=== PATIENT | female | born 1935 | race Caucasian/White ===

== ENCOUNTER → 2019-05-12 11:12 | Outpatient (CLI) | payer MEDICARE, OTHER, SELFPAY ==
--- NOTE | 2019-05-12 | DI.RAD.S_ITS ---
PROCEDURE: XR LUMBAR SPINE 2-3V INDICATIONS: MIDLINE LOW BACK PAIN TECHNIQUE: 3 views of the lumbar spine were acquired. COMPARISON: None. FINDINGS: Bones: 5 [id number] vertebrae are present. There is normal bony alignment. No vertebral body compression fractures. No suspicious bony lesions. Mild multilevel degenerative changes of the lumbar spine as evidenced by facet arthropathy. There is possible osseous narrowing of the L5-S1 neuroforamina. Soft tissues: There are bilateral abdominal calcifications concerning for nephrolithiasis versus ingested high density material. The calcifications in the right upper quadrant of the abdomen appear to demonstrate branching suggestive of renal collecting system calcifications. There are bilateral vascular calcifications are nonobstructive bowel gas pattern. IMPRESSION: 1. Mild multilevel degenerative changes of the lumbar spine. 2. Bilateral right greater than left abdominal calcifications concerning for nephrolithiasis versus ingested intraluminal high density bowel contents. Dictated by: Romeo Alexander M.D. on 05/12/2019 at 15:16 Approved by: Romeo Alexander M.D. on 05/12/2019 at 15:18
[2019-05-12 12:26] LABS: Add Manual Diff / Slide Review NO; Basophils Absolute Auto 0 /uL (0-100); Basophils Percent Auto 0.4 % (0-2); Eosinophils Absolute Auto 300 /uL (0-450); Eosinophils Percent Auto 4.9 % (2-4); Hematocrit 43.2 % (36-46); Hemoglobin 14.5 g/dL (12.0-16.0); Lymphocytes Absolute Auto 1800 /uL (1100-4500); Lymphocytes Percent Auto 26.5 % (25-40); Mean Corpuscular HGB Conc 33.6 % (30-36); Mean Corpuscular Hemoglobin 30.5 PG (26-34); Mean Corpuscular Volume 90.7 fL (80-100); Monocytes Absolute Auto 500 /uL (0-900); Monocytes Percent Auto 7.6 % (3-14); Neutrophils Absolute Auto 4200 /uL (1500-7000); Neutrophils Percent Auto 60.6 % (50-75); Platelet Count 334 X10^3/uL (150-400); Red Blood Cell Count 4.77 X10^6/uL (4.0-5.2); Red Cell Distribution Width 13.3 % (11.6-14.8); White Blood Cell Count 6.9 X10^3/uL (4.5-11.0)
[2019-05-12 12:58] LABS: Alanine Aminotransferase 19 IU/L (9-52); Albumin 4.4 g/dL (3.5-5.0); Albumin Globulin Ratio 1.4 (1.0-2.8); Alkaline Phosphatase 71 U/L (38-126); Aspartate Aminotransferase 24 IU/L (14-36); Bilirubin Total 0.9 mg/dL (0.2-1.3); Blood Urea Nitrogen 24 mg/dL (7-17); Calcium 10.9 mg/dL (8.4-10.2); Carbon Dioxide 25 mmol/L (22-32); Chloride 106 mmol/L (98-107); Cholesterol 213 mg/dL (140-199); Estimated Glomerular Filt Rate 42.9 mL/min (>60); Globulin 3.1 g/dL (1.7-4.1); Glucose 103 mg/dL (80-110); HDL Cholesterol 56 mg/dL (40-60); HEMOLYSIS < 15 (0-50); LDL Cholesterol Calculated 126 mg/dL (<100); Potassium 4.4 mmol/L (3.4-5.1); Sodium 143 mmol/L (137-145); Total Protein 7.5 g/dL (6.3-8.2); Triglycerides 156 mg/dL (35-150)
[2019-05-12 13:26] LABS: Thyroid Stimulating Hormone 1.85 uIU/mL (0.47-4.68)
== END ==
PROVIDERS: PCP Orthopaedic Surgery; Visit Provider Family Medicine
DX: M54.5 Low back pain (principal); G89.29 Other chronic pain; H54.62 Unqualified visual loss, left eye, normal vision right eye; R53.83 Other fatigue
CPT/HCPCS: 36415; 72100; 80053; 80061; 84443; 85025

== ENCOUNTER → 2019-05-19 10:37 | Outpatient (CLI) | payer MEDICARE, OTHER, SELFPAY ==
--- NOTE | 2019-05-19 | DI.MRI.S_ITS ---
PROCEDURE: MR STROKE INDICATIONS: Unqualified visual loss, left eye, normal vision TECHNIQUE: Brain: Noncontrast axial T1 spin echo, axial T2 fast spin echo, sagittal and axial FLAIR, coronal T2 fast spin echo, axial gradient echo, axial diffusion and ADC through the brain. MR angiogram: Noncontrast axial 3D [id number] MR angiogram, with maximum intensity projection reformats of the internal carotid arteries and posterior circulation then performed. COMPARISON: None. FINDINGS: Image quality: Excellent. BRAIN: CSF Spaces: Basal cisterns are patent. No extra-axial fluid collections. Ventricles are normal in size and shape. Brain: No midline shift. No intracranial bleeds or mass effects. The brainstem appears normal. Eastman/white matter interface appears normal. Diffusion-weighted images demonstrate no acute ischemic insult. No chronic ischemic insults suggestive of encephalomalacia from prior stroke. There is mild to moderate microvascular atherosclerotic change in the deep white matter each hemisphere. Normal intravascular flow voids are present. Skull and face: Calvarium has normal marrow signal. Orbits appear normal. Sinuses: Sinuses and mastoids are clear. BRAIN MR ANGIOGRAM: Anterior circulation: Intracranial internal carotid arteries demonstrate normal size and intraluminal flow signal. The flow within the paired anterior cerebral arteries is normal and symmetric. The flow within the middle cerebral arteries is normal and symmetric. The anterior communicating artery is seen. No stenoses, occlusions, or aneurysms. Posterior circulation: The visualized vertebral arteries demonstrate normal caliber, and join to form a normal appearing basilar artery. The flow within the posterior cerebral arteries is normal and symmetric. Note is made of normal appearing posterior cerebral arteries. No stenoses, occlusions, or aneurysms. 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 There is no evidence for acute or chronic prior stroke, and over the orbits bilaterally no abnormality is seen. Source of current symptoms is not found. Dictated by: David Nuñez M.D. on 05/19/2019 at 13:21 Approved by: David Nuñez M.D. on 05/19/2019 at 13:44
== END ==
PROVIDERS: PCP Family Medicine; Visit Provider Family Medicine
DX: H54.62 Unqualified visual loss, left eye, normal vision right eye (principal)
CPT/HCPCS: 70548; 70553

== ENCOUNTER 2020-02-13 18:19 | Inpatient (IN) | payer MEDICARE, OTHER, SELFPAY ==
[2020-02-13] VITALS (7 sets, daily range): BP systolic 118–142; BP diastolic 66–76; PULSE 70–94; RESP 12–21; TEMP 36.4–36.8; O2SAT 97–99; BMI 23.6
--- NOTE | 2020-02-13 18:29 | ED_ITS ---
HPI - GI Bleed General Chief complaint: GI Bleed Stated complaint: blood in her stool Time Seen by Provider: 02/13/20 18:20 Source: patient Mode of arrival: Ambulatory Limitations: no limitations History of Present Illness HPI Narrative: 84F nonsmoker with noncontributory medical history presents with her and at the request of her primary care provider after having for large bloody bowel movements over the course of the day. She has become dizzy and fatigued in requires assistance while ambulating, this is not her baseline. She denies any history of GI bleed, takes no anticoagulants and has never had colonoscopy. She denies any chest pain or shortness of breath. She denies any abdominal pain. She denies any significant dietary change. She states that the bowel movements are almost exclusively bright red blood and denies any vomiting of blood or dark and tarry stool at any time. She denies any alcohol history or trouble with her liver or other bleeding problems. MD complaint: gross hematochezia Onset (ago): hour(s) Severity: moderate Relieving factors: none Exacerbating factors: none Associated symptoms: loss of appetite and shortness of breath Treatments Prior to Arrival: none Related Data Home Medications Medication Instructions Recorded Confirmed latanoprost 0.005 % eye drops EYE-BOTH QPM ml 06/24/19 06/24/19 aspirin [Aspir-81] 81 mg PO DAILY 02/13/20 02/13/20 Allergies Allergy/AdvReac Type Severity Reaction Status Date / Time No Known Drug Allergies Allergy Unverified 06/24/19 10:47 Review of Systems Constitutional Constitutional: Denies chills, Denies fatigue, Denies fever(s), Denies frequent falls, Denies lethargy and Denies weakness Eyes Eyes: Denies change in vision, Denies eye discharge, Denies irritation and Denies loss of vision ENT Ears, Nose, Mouth, and Throat: Denies change in voice, Denies dizziness, Denies neck pain, Denies sore throat and Denies throat swelling Cardiovascular Cardiovascular: Denies chest pain, Denies irregular heart rhythm, Denies lightheadedness, Denies palpitations, Denies dyspnea, Denies dyspnea on exertion and Denies orthopnea Respiratory Respiratory: Denies cough, Denies dyspnea, Denies dyspnea on exertion and Denies wheezing Gastrointestinal Gastrointestinal: Denies abdominal pain, Reports hematochezia, Denies change in bowel habits, Denies diarrhea, Denies nausea and Denies vomiting Genitourinary Genitourinary: Denies hematuria, Denies flank pain, Denies urinary incontinence and Denies urinary urgency Musculoskeletal Musculoskeletal: Denies back pain, Denies muscle weakness, Denies neck pain, Denies numbness and Denies tingling Integumentary/Breasts Skin/Breast: Denies pruritus, Denies erythema, Denies rash and Denies wounds Neurologic Neurologic: Denies behavioral changes, Denies confusion, Denies dizziness, Denies frequent falls, Denies loss of vision, Denies numbness, Denies tingling and Denies weakness Psychiatric Psychiatric: Denies anxiety, Denies behavioral changes, Denies confusion, Denies depression, Denies homicidal ideation and Denies suicidal ideation Endocrine Endocrine: Denies fatigue, Denies flushing and Denies palpitations Hematologic/Lymphatic Hematologic/Lymphatic: Denies easy bruising Allergic/Immunologic Allergic/Immunologic: Denies urticaria, Denies throat swelling and Denies wheezing Patient History Social History Smoking Status: Never smoker Smoking Status: Never smoker Exam Narrative Exam Narrative: GENERAL: [84] year old patient appears stated age. Well- nourished, well-developed patient, in mild distress. HEAD: Atraumatic. Normocephalic. EYES: Pale conjunctiva Pupils equal round and reactive. Extraocular motions intact. No scleral icterus. No injection or drainage. ENT: Nose without bleeding, purulent drainage. Throat without erythema, tonsillar hypertrophy or exudate. Airway patent. NECK: Trachea midline. Non tender CARDIOVASCULAR: Regular rate and rhythm without murmurs, gallops, or rubs. RESPIRATORY: Clear to auscultation. Breath sounds equal bilaterally. No wheezes, rales, or rhonchi. GASTROINTESTINAL: Abdomen soft, non-tender, nondistended. EXTREMITIES: No edema or joint tenderness. BACK: Nontender without deformity or crepitance. No flank tenderness. NEURO: AOx3. SKIN: No rash or erythema of visible areas Initial Vital Signs Initial Vital Signs: Vital Signs Temperature 98.0 F 02/13/20 18:20 Pulse Rate 91 H 02/13/20 18:20 Respiratory Rate 14 02/13/20 18:20 Blood Pressure 142/76 H 02/13/20 18:20 Pulse Oximetry 98 02/13/20 18:20 Course Orders Ordered: ED Orders 02/13/20 18:35 Complete Blood Count AUTO DIFF Stat Comprehensive Metabolic Panel Stat Lactate (Lactic Acid) Stat Partial Thromboplastin Time Stat Prothrombin Time INR Stat Type and Screen Stat Sodium Chloride (Normal Saline 0.9%) 1,000 mls @ 125 mls/hr IV CONT PERI Last Admin: 02/13/20 20:15 Dose: Not Given Documented by: FLOR Discontinued Medications Pantoprazole Sodium (Protonix) 40 mg IV NOW ONE Stop: 02/13/20 19:28 Last Admin: 02/13/20 20:21 Dose: 40 mg Documented by: DANIELLE Consultations Consultation #1: case discussed with Jairo Vaz) who supports admission to medicine, and will be happy to consult for possible colonoscopy Consultation #2: hospitalist happy to accept Vital Signs Vital signs: Vital Signs - 8 hr 02/13/20 18:20 02/13/20 18:43 02/13/20 19:00 Temperature 98.0 F Pulse Rate 91 H 90 87 Respiratory Rate 14 18 17 Blood Pressure 142/76 H Blood Pressure [Left Arm] 131/75 131/75 Pulse Oximetry 98 99 98 02/13/20 19:30 Temperature Pulse Rate 94 H Respiratory Rate 21 Blood Pressure Blood Pressure [Left Arm] 118/70 Pulse Oximetry 98 MDM - GI Bleed Lab Data Result diagrams: 02/13/20 18:35 02/13/20 18:35 Labs: Lab Results 02/13/20 02/13/20 02/13/20 Range/Units 18:35 18:35 18:35 WBC 11.0 (4.5-11.0) X10^3/uL RBC 4.36 (4.0-5.2) X10^6/uL Hgb 13.3 (12.0-16.0) g/dL Hct 39.7 (36-46) % MCV 91.0 (80-100) fL MCH 30.5 (26-34) PG MCHC 33.5 (30-36) % RDW 13.2 (11.6-14.8) % Plt Count 452 H (150-400) X10^3/uL Neut % (Auto) 81.6 H (50-75) % Lymph % (Auto) 10.9 L (25-40) % [place] % (Auto) 5.7 (3-14) % Eos % (Auto) 1.1 L (2-4) % Baso % (Auto) 0.7 (0-2) % Neut # (Auto) 9000 H (2585-6102) /uL Lymph # (Auto) 1200 (8802-7701) /uL [place] # (Auto) 600 (0-900) /uL Eos # (Auto) 100 (0-450) /uL Baso # (Auto) 100 (0-100) /uL PT 12.6 (10.1-12.7) SECONDS INR 1.1 (0.9-1.3) APTT 31 (26.4-36.2) SECONDS Sodium 137 (137-145) mmol/L Potassium 3.9 (3.4-5.1) mmol/L Chloride 104 (98-107) mmol/L Carbon Dioxide 20 L (22-32) mmol/L BUN 20 H (7-17) mg/dL Creatinine 1.37 H (0.52-1.04) mg/dL Estimated GFR 36.7 L (>60) mL/min BUN/Creatinine Ratio 14.6 (6-22) Glucose 133 H (80-110) mg/dL Lactate (0.7-2.1) mmol/L Calcium 10.6 H (8.4-10.2) mg/dL Total Bilirubin 0.8 (0.2-1.3) mg/dL AST 32 (14-36) IU/L ALT 15 (<35) IU/L Alkaline Phosphatase 89 (38-126) U/L Total Protein 7.8 (6.3-8.2) g/dL Albumin 4.3 (3.5-5.0) g/dL Globulin 3.5 (1.7-4.1) g/dL Albumin/Globulin Ratio 1.2 (1.0-2.8) Blood Type Antibody Screen 02/13/20 02/13/20 Range/Units 18:35 18:35 WBC (4.5-11.0) X10^3/uL RBC (4.0-5.2) X10^6/uL Hgb (12.0-16.0) g/dL Hct (36-46) % MCV (80-100) fL MCH (26-34) PG MCHC (30-36) % RDW (11.6-14.8) % Plt Count (150-400) X10^3/uL Neut % (Auto) (50-75) % Lymph % (Auto) (25-40) % [place] % (Auto) (3-14) % Eos % (Auto) (2-4) % Baso % (Auto) (0-2) % Neut # (Auto) (6124-3548) /uL Lymph # (Auto) (2780-3142) /uL [place] # (Auto) (0-900) /uL Eos # (Auto) (0-450) /uL Baso # (Auto) (0-100) /uL PT (10.1-12.7) SECONDS INR (0.9-1.3) APTT (26.4-36.2) SECONDS Sodium (137-145) mmol/L Potassium (3.4-5.1) mmol/L Chloride (98-107) mmol/L Carbon Dioxide (22-32) mmol/L BUN (7-17) mg/dL Creatinine (0.52-1.04) mg/dL Estimated GFR (>60) mL/min BUN/Creatinine Ratio (6-22) Glucose (80-110) mg/dL Lactate 2.0 (0.7-2.1) mmol/L Calcium (8.4-10.2) mg/dL Total Bilirubin (0.2-1.3) mg/dL AST (14-36) IU/L ALT (<35) IU/L Alkaline Phosphatase (38-126) U/L Total Protein (6.3-8.2) g/dL Albumin (3.5-5.0) g/dL Globulin (1.7-4.1) g/dL Albumin/Globulin Ratio (1.0-2.8) Blood Type O Positive Antibody Screen Negative Discharge Plan Departure Patient Disposition: Admitted as Observation Clinical Impression: Lower gastrointestinal hemorrhage Admit Date/Time: 02/13/20 20:12 Admit Provider: Jordyn Matson
[2020-02-13 18:56] LABS: Add Manual Diff / Slide Review NO; Basophils Absolute Auto 100 /uL (0-100); Basophils Percent Auto 0.7 % (0-2); Eosinophils Absolute Auto 100 /uL (0-450); Eosinophils Percent Auto 1.1 % (2-4); Hematocrit 39.7 % (36-46); Hemoglobin 13.3 g/dL (12.0-16.0); Lymphocytes Absolute Auto 1200 /uL (1100-4500); Lymphocytes Percent Auto 10.9 % (25-40); Mean Corpuscular HGB Conc 33.5 % (30-36); Mean Corpuscular Hemoglobin 30.5 PG (26-34); Monocytes Absolute Auto 600 /uL (0-900); Monocytes Percent Auto 5.7 % (3-14); Neutrophils Absolute Auto 9000 /uL (1500-7000); Neutrophils Percent Auto 81.6 % (50-75); Platelet Count 452 X10^3/uL (150-400); Red Blood Cell Count 4.36 X10^6/uL (4.0-5.2); Red Cell Distribution Width 13.2 % (11.6-14.8)
[2020-02-13 19:12] LABS: Alanine Aminotransferase 15 IU/L (<35); Albumin 4.3 g/dL (3.5-5.0); Albumin Globulin Ratio 1.2 (1.0-2.8); Alkaline Phosphatase 89 U/L (38-126); Aspartate Aminotransferase 32 IU/L (14-36); BUN Creatinine Ratio 14.6 (6-22); Bilirubin Total 0.8 mg/dL (0.2-1.3); Blood Urea Nitrogen 20 mg/dL (7-17); Calcium 10.6 mg/dL (8.4-10.2); Carbon Dioxide 20 mmol/L (22-32); Chloride 104 mmol/L (98-107); Estimated Glomerular Filt Rate 36.7 mL/min (>60); Globulin 3.5 g/dL (1.7-4.1); Glucose 133 mg/dL (80-110); HEMOLYSIS 24 (0-50); Potassium 3.9 mmol/L (3.4-5.1); Sodium 137 mmol/L (137-145); Total Protein 7.8 g/dL (6.3-8.2)
[2020-02-13 19:15] LABS: INR 1.1 (0.9-1.3); Prothrombin Time 12.6 SECONDS (10.1-12.7)
[2020-02-13 19:18] LABS: PTT Partial Thromboplastin Tim 31 SECONDS (26.4-36.2)
[2020-02-13] MEDS: PANTOPRAZOLE 40 MG VIAL IV (20:21)
--- NOTE | 2020-02-13 21:43 | PC.NURSE ---
Pt to room 221 from E.R. via stretcher by this commercial underwriter. Pt is able to ambulate from stretcher to bed without c/o dizziness. Denies h/o falls. Admits to lower abdominal cramping 2/10. Given folded warm blankets x 2 to hold to abdomen. Spouse staying locally in hotel. Pt oriented to call light. HECTOR Matson in to see patient. Verbal order obtained for clear liquids. Pt given water as per request. 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
[2020-02-13] MEDS: SODIUM CHLORIDE 0.9% 1,000 ML 100 ML IV (22:18)
--- NOTE | 2020-02-13 22:59 | PM.HP.1 ---
History of Present Illness History of Present Illness Date Patient Seen: 02/13/20 Time Patient Seen: 22:59 Date of Onset of Symptoms: 02/13/20 Chief complaint: blood in her stool Narrative: This is an 84-year-old woman who denies any significant medical or surgical history. Today she began having blood in her stool, without any abdominal pain. She had multiple episodes of bright red blood and clots in her stool. She has become dizzy and fatigued in requires assistance while ambulating, which is not her baseline. She denies any history of GI bleed, takes no anticoagulants and has never had a colonoscopy. She denies any family history of colorectal disorders, colon cancers, or colon polyps. She denies any chest pain or shortness of breath. She denies any abdominal pain. She denies any significant dietary change. She states that the bowel movements are almost exclusively bright red blood and denies any vomiting of blood or dark and tarry stool at any time. She has not had any more bloody bowel movements since coming in the ER. She denies smoking, and denies significant alcohol use. Review of Systems Constitutional: Denies chills, Denies fatigue, Denies fever(s), Denies frequent falls, Denies lethargy and Denies weakness Eyes: Denies change in vision, Denies eye discharge, Denies irritation and Denies loss of vision Ears, Nose, Mouth, and Throat: Denies change in voice, Denies dizziness, Denies neck pain, Denies sore throat and Denies throat swelling Cardiovascular: Denies chest pain, Denies irregular heart rhythm, Denies lightheadedness, Denies palpitations, Denies dyspnea, Denies dyspnea on exertion and Denies orthopnea Respiratory: Denies cough, Denies dyspnea, Denies dyspnea on exertion and Denies wheezing Gastrointestinal: Denies abdominal pain, Reports hematochezia, Denies change in bowel habits, Denies diarrhea, Denies nausea and Denies vomiting Genitourinary: Denies hematuria, Denies flank pain, Denies urinary incontinence and Denies urinary urgency Musculoskeletal: Denies back pain, Denies muscle weakness, Denies neck pain, Denies numbness and Denies tingling Skin/Breast: Denies pruritus, Denies erythema, Denies rash and Denies wounds Neurologic: Denies behavioral changes, Denies confusion, Denies dizziness, Denies frequent falls, Denies loss of vision, Denies numbness, Denies tingling and Denies weakness Psychiatric: Denies anxiety, Denies behavioral changes, Denies confusion, Denies depression, Denies homicidal ideation and Denies suicidal ideation Endocrine: Denies fatigue, Denies flushing and Denies palpitations Hematologic/Lymphatic: Denies easy bruising Allergic/Immunologic: Denies urticaria, Denies throat swelling and Denies wheezing PE: GENERAL: Well groomed and cooperative. Appears stated age. Answers questions promptly and appropriately. Vital signs noted. HENT: Normocephalic, atraumatic. Hearing intact. Oral mucosa is pink and moist. EYES: Conjunctiva pink, sclera white, no periorbital swelling. CARDIOVASCULAR: Regular rate. No pedal edema. RESPIRATORY: Non-tachypneic, breathing comfortably on room air. GASTROINTESTINAL: Abdomen soft and non-distended, nontender Perianal: No stool staining, no gross blood, small soft external hemorrhoid remnants REGLA: Deferred per patient preference GENITALURINARY: No flank tenderness. MUSCULOSKELETAL: Equal tone and mass bilaterally. SKIN: Warm, dry, soft, appropriate color for ethnicity. No other lesions, rashes, or wounds. NEURO: Alert and Oriented X 3. No gross sensory deficits, or cognitive issues. PSYCH: Appropriate affect and mood. Patient History Family & Social History Social History: household members spouse Prior Living Arrangements House Safety & Behavioral: Feels Safe in Current Yes Environment Been Physically Hurt or No Threatened By a Person Suicidal Ideation Description None Suicide Plan Description No Plan Tobacco & Substance use: Tobacco type cigarettes Smoking Status Former smoker alcohol intake current alcohol intake frequency 0-2 drinks per day Substance Use Type does not use Meds Home Medications and Allergies Home Medications Medication Instructions Recorded Confirmed Type latanoprost 0.005 % eye drops 1 drp EYE-BOTH BID ml 06/24/19 02/13/20 History aspirin [Aspir-81] 81 mg PO DAILY 02/13/20 02/13/20 History Allergies Allergy/AdvReac Type Severity Reaction Status Date / Time No Known Drug Allergies Allergy Unverified 06/24/19 10:47 Exam Vital Signs (past 8 hours): - 02/13/20 18:20 02/13/20 18:43 02/13/20 19:00 Temperature 98.0 F Pulse Rate 91 H 90 87 Respiratory Rate 14 18 17 Blood Pressure 142/76 H Blood Pressure [Left Arm] 131/75 131/75 Pulse Oximetry 98 99 98 02/13/20 19:30 02/13/20 21:10 Temperature 97.5 F L Pulse Rate 94 H 70 Respiratory Rate 21 17 Blood Pressure 120/66 Blood Pressure [Left Arm] 118/70 Pulse Oximetry 98 98 Oxygen Delivery Method Room Air Oxygen Flow Rate 0 Objective Labs Result Diagrams: 02/13/20 18:35 02/13/20 18:35 Labs: Laboratory Results - last 24 hr 02/13/20 02/13/20 02/13/20 18:35 18:35 18:35 WBC 11.0 RBC 4.36 Hgb 13.3 Hct 39.7 MCV 91.0 MCH 30.5 MCHC 33.5 RDW 13.2 Plt Count 452 H Neut % (Auto) 81.6 H Lymph % (Auto) 10.9 L [place] % (Auto) 5.7 Eos % (Auto) 1.1 L Baso % (Auto) 0.7 Neut # (Auto) 9000 H Lymph # (Auto) 1200 [place] # (Auto) 600 Eos # (Auto) 100 Baso # (Auto) 100 PT 12.6 INR 1.1 APTT 31 Sodium 137 Potassium 3.9 Chloride 104 Carbon Dioxide 20 L BUN 20 H Creatinine 1.37 H Estimated GFR 36.7 L BUN/Creatinine Ratio 14.6 Glucose 133 H Lactate Calcium 10.6 H Total Bilirubin 0.8 AST 32 ALT 15 Alkaline Phosphatase 89 Total Protein 7.8 Albumin 4.3 Globulin 3.5 Albumin/Globulin Ratio 1.2 Blood Type Antibody Screen 02/13/20 02/13/20 18:35 18:35 WBC RBC Hgb Hct MCV MCH MCHC RDW Plt Count Neut % (Auto) Lymph % (Auto) [place] % (Auto) Eos % (Auto) Baso % (Auto) Neut # (Auto) Lymph # (Auto) [place] # (Auto) Eos # (Auto) Baso # (Auto) PT INR APTT Sodium Potassium Chloride Carbon Dioxide BUN Creatinine Estimated GFR BUN/Creatinine Ratio Glucose Lactate 2.0 Calcium Total Bilirubin AST ALT Alkaline Phosphatase Total Protein Albumin Globulin Albumin/Globulin Ratio Blood Type O Positive Antibody Screen Negative Assessment & Plan Assessment and plan (1) Lower gastrointestinal hemorrhage: Current visit: Yes Status: Acute Assessment & Plan narrative: This is an 84-year-old woman with new onset hematochezia. Her hemoglobin is normal, but she is currently getting IV fluids, it may drop. She has not put out any more bloody stool since she got to the hospital. She has been admitted and will stay overnight. She has told me that she does not want have a colonoscopy done but she wants to go home on Sunday, which is tomorrow. A suggested that we see how she do overnight, check some labs in the morning, and that if she does decide to go home, that she plan on a relatively soon follow-up in order to schedule colonoscopy for her. I have expressed to her the concerned that this bleeding may be evidence of a colon cancer, and that should be ruled out. 25 minutes were spent face to face with the patient. More than 50% of the time was spent in counseling and co-ordination of care regarding risk and benefit of screening colonoscopy, possible colon cancer, possible risks of avoiding colonoscopy screening, recommendation have colonoscopy either on this admission or in the near future. Plan: Okay for p.o. clears this evening, we would check labs in the morning, and if hemoglobin is dropping in patient is willing would consider prepping for colonoscopy. If her hemoglobin is stable and she is not having any more blood in the stool, then a plan for close outpatient follow-up with a colonoscopy in the near future in strict return precautions may be reasonable. If she stays and is planning on a colonoscopy, she will need COVID-19 testing before colonoscopy. COVID-19 COVID-19 status: Not tested Time Spent With Patient Time with patient: 25 - 35 minutes Quality VTE Deep Vein Thrombosis/Pulmonary Embolism Present on Admission: No
--- NOTE | 2020-02-13 23:08 | PM.HP.1 ---
History of Present Illness History of Present Illness Date Patient Seen: 02/13/20 Time Patient Seen: 21:00 Chief complaint: blood in her stool Narrative: Miranda Siddiqui is an 84-year-old female who woke up this morning and had a normal bowel movement. Then at 10:30 a.m. after having breakfast she had another bowel movement that she states was soft and noticed she had blood in her stool. She has never had a history of hemorrhoids. Nor has she had a colonoscopy. She has had some mild cramping, denies shortness of breath, fatigue, chest pain, abdominal pain, dysuria, diarrhea constipation. The patient has a minimal medical history only taking aspirin 81 mg and eyedrops. Patient would like to not have to undergo a colonoscopy as she plans to meet her son who is lying in and visiting her over mother's day weekend. Patient History Surgical History Hx of tonsillectomy (Acute) Family & Social History Family History Mother FHx: bladder cancer Father Heart disease Social History: household members spouse Prior Living Arrangements House Safety & Behavioral: Feels Safe in Current Yes Environment Been Physically Hurt or No Threatened By a Person Suicidal Ideation Description None Suicide Plan Description No Plan Tobacco & Substance use: Tobacco type denies smoking today Smoking Status Former smoker alcohol intake current alcohol intake frequency 1/2 shot of hard liquor nightly Substance Use Type does not use Meds Home Medications and Allergies Home Medications Medication Instructions Recorded Confirmed Type latanoprost 0.005 % eye drops 1 drp EYE-BOTH BID ml 06/24/19 02/13/20 History aspirin [Aspir-81] 81 mg PO DAILY 02/13/20 02/13/20 History Allergies Allergy/AdvReac Type Severity Reaction Status Date / Time No Known Drug Allergies Allergy Unverified 06/24/19 10:47 Review of Systems Review of Systems ROS: Yes All systems reviewed with the patient and are negative except as otherwise documented Exam Vital Signs (past 8 hours): - 02/13/20 18:20 02/13/20 18:43 02/13/20 19:00 Temperature 98.0 F Pulse Rate 91 H 90 87 Respiratory Rate 14 18 17 Blood Pressure 142/76 H Blood Pressure [Left Arm] 131/75 131/75 Pulse Oximetry 98 99 98 02/13/20 19:30 02/13/20 21:10 Temperature 97.5 F L Pulse Rate 94 H 70 Respiratory Rate 21 17 Blood Pressure 120/66 Blood Pressure [Left Arm] 118/70 Pulse Oximetry 98 98 Oxygen Delivery Method Room Air Oxygen Flow Rate 0 Narrative Exam Narrative: Gen: Alert, oriented, well-developed 84 y.o. female, NAD HEENT: normocephalic, atraumatic, conjunctiva clear, sclera non-icteric, oral mucosa pink and moist Neck: supple, full ROM, no JVD, trachea is midline Resp: Lungs CTA, non-labored breathing CV: RRR, no murmur or rubs Abd: soft, non-tender, normoactive BTs Skin: Evidence of significant lifetime sun exposure, no lesions or rashes, dry and intact Neuro: Alert and oriented X 4 w/no focal deficits Extremities: moves all 4 extremities, is ambulatory, negative Eliud?s sign Psyche: normal mood and affect. Objective Labs Result Diagrams: 02/13/20 18:35 02/13/20 18:35 Labs: Laboratory Results - last 24 hr 02/13/20 02/13/20 02/13/20 18:35 18:35 18:35 WBC 11.0 RBC 4.36 Hgb 13.3 Hct 39.7 MCV 91.0 MCH 30.5 MCHC 33.5 RDW 13.2 Plt Count 452 H Neut % (Auto) 81.6 H Lymph % (Auto) 10.9 L [place] % (Auto) 5.7 Eos % (Auto) 1.1 L Baso % (Auto) 0.7 Neut # (Auto) 9000 H Lymph # (Auto) 1200 [place] # (Auto) 600 Eos # (Auto) 100 Baso # (Auto) 100 PT 12.6 INR 1.1 APTT 31 Sodium 137 Potassium 3.9 Chloride 104 Carbon Dioxide 20 L BUN 20 H Creatinine 1.37 H Estimated GFR 36.7 L BUN/Creatinine Ratio 14.6 Glucose 133 H Lactate Calcium 10.6 H Total Bilirubin 0.8 AST 32 ALT 15 Alkaline Phosphatase 89 Total Protein 7.8 Albumin 4.3 Globulin 3.5 Albumin/Globulin Ratio 1.2 Blood Type Antibody Screen 02/13/20 02/13/20 18:35 18:35 WBC RBC Hgb Hct MCV MCH MCHC RDW Plt Count Neut % (Auto) Lymph % (Auto) [place] % (Auto) Eos % (Auto) Baso % (Auto) Neut # (Auto) Lymph # (Auto) [place] # (Auto) Eos # (Auto) Baso # (Auto) PT INR APTT Sodium Potassium Chloride Carbon Dioxide BUN Creatinine Estimated GFR BUN/Creatinine Ratio Glucose Lactate 2.0 Calcium Total Bilirubin AST ALT Alkaline Phosphatase Total Protein Albumin Globulin Albumin/Globulin Ratio Blood Type O Positive Antibody Screen Negative Assessment & Plan Assessment & Plan narrative: Miranda Siddiqui is an 84-year-old female with a single episode of hematochezia. She will be observed overnight, given fluid hydration, and her labs checked in the morning. If she worsens overnight she will reconsider doing a bowel prep for a colonoscopy. Hematochezia, acute, present on admission -her aspirin been held -clear liquids -IV hydration with normal saline at 100 mL/hour -IV Protonix 40 mg in the morning. She was given a dose of this in the ED today. -type and screen -Dr. Samuels has been notified and will consult on the patient, this is appreciated -if the patient's condition overnight warrants a colonoscopy EG necessitating a blood transfusion, continued hematochezia, morning hospitalist is requested to notify surgery to arrange for a scope. Consults: Dr. Bustamante, General Surgery consult and involvement is appreciated. Patient is observation status as her stay is not likely to exceed 2 midnights. FEN: IV NS at 100 ml/hour, clears, BMP in the am. VTE prophylaxis: Bilateral SCDs Dispo: Probable discharge to home Code Status: Full code as discussed with patient Quality VTE Deep Vein Thrombosis/Pulmonary Embolism Present on Admission: No
[2020-02-14] VITALS (7 sets, daily range): BP systolic 136–143; BP diastolic 63–72; PULSE 70–76; RESP 18; TEMP 36.6–36.7; O2SAT 96–100
[2020-02-14 06:33] LABS: Add Manual Diff / Slide Review NO; Basophils Absolute Auto 100 /uL (0-100); Basophils Percent Auto 1.2 % (0-2); Eosinophils Absolute Auto 200 /uL (0-450); Eosinophils Percent Auto 2.4 % (2-4); Hematocrit 32.2 % (36-46); Hemoglobin 11.1 g/dL (12.0-16.0); Lymphocytes Absolute Auto 2100 /uL (1100-4500); Lymphocytes Percent Auto 27.1 % (25-40); Mean Corpuscular HGB Conc 34.4 % (30-36); Mean Corpuscular Hemoglobin 31.2 PG (26-34); Mean Corpuscular Volume 90.9 fL (80-100); Monocytes Absolute Auto 600 /uL (0-900); Monocytes Percent Auto 7.8 % (3-14); Neutrophils Absolute Auto 4700 /uL (1500-7000); Neutrophils Percent Auto 61.5 % (50-75); Platelet Count 314 X10^3/uL (150-400); Red Blood Cell Count 3.55 X10^6/uL (4.0-5.2); Red Cell Distribution Width 13.4 % (11.6-14.8); White Blood Cell Count 7.7 X10^3/uL (4.5-11.0)
[2020-02-14 06:45] LABS: BUN Creatinine Ratio 14.4 (6-22); Blood Urea Nitrogen 20 mg/dL (7-17); Calcium 9.8 mg/dL (8.4-10.2); Carbon Dioxide 23 mmol/L (22-32); Chloride 107 mmol/L (98-107); Estimated Glomerular Filt Rate 36.1 mL/min (>60); Glucose 95 mg/dL (80-110); HEMOLYSIS < 15 (0-50); Potassium 4.5 mmol/L (3.4-5.1); Sodium 138 mmol/L (137-145)
[2020-02-14] MEDS: SODIUM CHLORIDE 0.9% 1,000 ML 100 ML IV (08:45)
[2020-02-14] MEDS: PANTOPRAZOLE 40 MG VIAL IV (08:45)
[2020-02-14 13:14] LABS: Hematocrit 29.9 % (36-46); Hemoglobin 10.2 g/dL (12.0-16.0)
--- NOTE | 2020-02-14 14:32 | PC.NURSE ---
Shift summary: A&O X3. Taking clear liquids without N/V. Not much appetite, but she reports really disliking clear liquids. No bowel movements or rectal bleeding noted this shift. No other s/sx bleeding noted. Denies abd pain or discomfort. BT+, hypoactive. Flatus+. Reported feeling a bit lightheaded/dizzy with ambulation this morning, denied the same this afternoon. Denies SOB. H/H was repeated at noon, MD Doty aware of results. SCD's to BLE's. Able to make needs known and calls appropriately. Light and belongings within reach, bed alarm on. This telegraphic typewriter repairer gave Dr Doty patient's husbands contact info and he will work on getting in touch with to provide update on POC.
--- NOTE | 2020-02-14 15:56 | CM.IDA ---
Initial DCP Assessment Note: Patient is an 84 yo female, resident of [facility]. Patient is an inpt as of 5.9.20, presents w/blood in her stool PCP: Augustina Heck Payer: MARCUS/Yuval Met w/patient, explained SW role. Patient lives w/her spouse on [facility], both she and her are indp and active and have been living on [address] for 20 years. One adult child lives in the [place] area and another lives in [place]. Patient is hopeful she can return home for mother's day but plans to remain in the hospital for medical management, possible colonoscopy needed per surgery's notes. P: DC home expected w/family via pov, when medically cleared DCP team will follow closely in case any needs or concerns arise. JOSH Wayne Discharge Planning/Care Management CM Discharge Assessment Start: 02/14/20 15:53 Freq: Status: Active Protocol: Document 02/14/20 15:53 CHAR (Rec: 02/14/20 15:56 CHAR [id number]) Discharge Planning Assessment Assigned Manager Of Housekeeping JOSH Castro DPOA/Assigned Designee Name Alex Siddiqui, spouse Contact Information [phone], Advance Directives? No History Provided By Patient Prior Living Arrangements House Household Members spouse Type of transporation used prior to Drives own vehicle admit Independent with ADL's Yes Is patient alert and oriented? Yes Barriers to Discharge No Discharge Plan Home Transportation Arrangement Family Referrals Initiated None needed
--- NOTE | 2020-02-14 15:57 | PM.PN.1 ---
Subjective Subjective Date Patient Seen: 02/14/20 Time Patient Seen: 15:58 Interval history: Miranda Siddiqui is an 84-year-old female admitted with hematochezia. She has had no further episodes of bright red blood per rectum today. However her hemoglobin is continuing to downtrend, from 13.3 on admission to now 10.2 this afternoon. Patient is now agreeable for colonoscopy tomorrow, will touch base with the general surgeon regarding possible prep tonight. COVID-19 testing will be sent for the possibility of colonoscopy tomorrow. Exam Vital Signs (past 8 hours): - 02/14/20 08:20 02/14/20 09:05 02/14/20 09:29 Temperature 97.8 F 97.8 F Pulse Rate 70 70 Respiratory Rate 18 18 Blood Pressure 142/63 H 142/63 H Pulse Oximetry 99 100 99 02/14/20 13:00 02/14/20 15:37 Temperature 97.8 F 98.1 F Pulse Rate 76 70 Respiratory Rate 18 18 Blood Pressure 141/69 H 136/70 Pulse Oximetry 98 99 Oxygen Delivery Method Room Air Oxygen Flow Rate 0 Narrative Exam Narrative: GENERAL APPEARANCE: Well developed, well nourished, in no acute distress. SKIN: Inspection of the skin reveals no rashes, ulcerations or petechiae. HEENT: Normocephalic atraumatic, extraocular muscles are intact, oropharynx is clear and mucous membranes are moist, neck is supple without adenopathy NECK: Supple and symmetric. There was no thyroid enlargement, and no tenderness, or masses were felt. CHEST: Normal AP diameter and normal contour without any kyphoscoliosis. LUNGS: Auscultation of the lungs revealed no wheezes, rhonchi, or rales. CARDIOVASCULAR: There was a regular rate and rhythm without any murmurs, gallops, rubs. Peripheral pulses were 2+ and symmetric. ABDOMEN: Bilateral lower quadrant tenderness, mild, without guarding or rebound. No ascites. MUSCULOSKELETAL: There was no tenderness or effusions noted. Muscle strength and tone were normal. EXTREMITIES: No cyanosis, clubbing or edema. NEUROLOGIC: Alert and oriented x 3. Normal affect. Gait was normal. Strength is +5/5 in the Upper Extremities and Lower Extremities Bilaterally. Sensation to touch was normal. Objective Labs Result Diagrams: 02/14/20 13:04 02/14/20 06:00 Labs: Laboratory Results - last 24 hr 02/13/20 02/13/20 02/13/20 18:35 18:35 18:35 WBC 11.0 RBC 4.36 Hgb 13.3 Hct 39.7 MCV 91.0 MCH 30.5 MCHC 33.5 RDW 13.2 Plt Count 452 H Neut % (Auto) 81.6 H Lymph % (Auto) 10.9 L [place] % (Auto) 5.7 Eos % (Auto) 1.1 L Baso % (Auto) 0.7 Neut # (Auto) 9000 H Lymph # (Auto) 1200 [place] # (Auto) 600 Eos # (Auto) 100 Baso # (Auto) 100 PT 12.6 INR 1.1 APTT 31 Sodium 137 Potassium 3.9 Chloride 104 Carbon Dioxide 20 L BUN 20 H Creatinine 1.37 H Estimated GFR 36.7 L BUN/Creatinine Ratio 14.6 Glucose 133 H Lactate Calcium 10.6 H Magnesium Total Bilirubin 0.8 AST 32 ALT 15 Alkaline Phosphatase 89 Total Protein 7.8 Albumin 4.3 Globulin 3.5 Albumin/Globulin Ratio 1.2 Blood Type Antibody Screen 02/13/20 02/13/20 02/14/20 18:35 18:35 06:00 WBC RBC Hgb Hct MCV MCH MCHC RDW Plt Count Neut % (Auto) Lymph % (Auto) [place] % (Auto) Eos % (Auto) Baso % (Auto) Neut # (Auto) Lymph # (Auto) [place] # (Auto) Eos # (Auto) Baso # (Auto) PT INR APTT Sodium 138 Potassium 4.5 Chloride 107 Carbon Dioxide 23 BUN 20 H Creatinine 1.39 H Estimated GFR 36.1 L BUN/Creatinine Ratio 14.4 Glucose 95 Lactate 2.0 Calcium 9.8 Magnesium 2.0 Total Bilirubin AST ALT Alkaline Phosphatase Total Protein Albumin Globulin Albumin/Globulin Ratio Blood Type O Positive Antibody Screen Negative 02/14/20 02/14/20 06:00 13:04 WBC 7.7 RBC 3.55 L Hgb 11.1 L 10.2 L Hct 32.2 L 29.9 L MCV 90.9 MCH 31.2 MCHC 34.4 RDW 13.4 Plt Count 314 Neut % (Auto) 61.5 D Lymph % (Auto) 27.1 [place] % (Auto) 7.8 Eos % (Auto) 2.4 Baso % (Auto) 1.2 Neut # (Auto) 4700 Lymph # (Auto) 2100 [place] # (Auto) 600 Eos # (Auto) 200 Baso # (Auto) 100 PT INR APTT Sodium Potassium Chloride Carbon Dioxide BUN Creatinine Estimated GFR BUN/Creatinine Ratio Glucose Lactate Calcium Magnesium Total Bilirubin AST ALT Alkaline Phosphatase Total Protein Albumin Globulin Albumin/Globulin Ratio Blood Type Antibody Screen Assessment & Plan Assessment & Plan narrative: Miranda Siddiqui is an 84-year-old female admitted with hematochezia. She has had no further episodes as an inpatient, but her hemoglobin has fallen from 13.3-10.2. Given continuing decline, will likely plan for colonoscopy tomorrow. 1. Hematochezia, acute, present on admission -her aspirin been held -clear liquids for now, NPO at midnight for possible prep tomorrow, will confirm with general surgery prior to prep -resume IV hydration if NPO at midnight -patient was given IV Protonix, however given likelihood of lower GI bleeding will stop at this time. -maintain active type and screen, continue to follow hemoglobin, will repeat tonight. -Dr. Samuels was the initial consult, will follow-up with general surgery as noted above. -COVID 19 testing to be sent for possibility of colonoscopy. Consults: General surgery Patient has continued hemoglobin decline. Will plan on changing her to inpatient status today. VTE prophylaxis: Bilateral SCDs Dispo: Probable discharge to home Code Status: Full code as discussed with patient Quality VTE Deep Vein Thrombosis/Pulmonary Embolism Present on Admission: No
[2020-02-14 16:49] LABS: Alanine Aminotransferase 10 IU/L (<35); Albumin 3.1 g/dL (3.5-5.0); Albumin Globulin Ratio 1.1 (1.0-2.8); Alkaline Phosphatase 59 U/L (38-126); Aspartate Aminotransferase 75 IU/L (14-36); Bilirubin Total 0.5 mg/dL (0.2-1.3); Blood Urea Nitrogen 17 mg/dL (7-17); Calcium 9.4 mg/dL (8.4-10.2); Carbon Dioxide 22 mmol/L (22-32); Chloride 109 mmol/L (98-107); Estimated Glomerular Filt Rate 42.4 mL/min (>60); Globulin 2.8 g/dL (1.7-4.1); Glucose 99 mg/dL (80-110); HEMOLYSIS 16 (0-50); Potassium 3.3 mmol/L (3.4-5.1); Sodium 138 mmol/L (137-145); Total Protein 5.9 g/dL (6.3-8.2)
[2020-02-14 17:42] LABS: COVID19 -Nasal RAPID Negative (Negative)
[2020-02-14] MEDS: PEG3350/SOD SULF,BICARB,CL/KCL 4,000 ML SOLUTION 4000 ML PO (18:08)
[2020-02-14 19:44] LABS: Hemoglobin 10.2 g/dL (12.0-16.0)
[2020-02-14] MEDS: POTASSIUM CHLORIDE 20 MEQ TAB 40 MEQ PO (20:48)
[2020-02-14] MEDS: SODIUM CHLORIDE 0.9% FLUSH 10 ML IV (20:49)
[2020-02-15] VITALS (14 sets, daily range): BP systolic 127–150; BP diastolic 60–77; PULSE 68–82; RESP 15–18; TEMP 36.3–37.7; O2SAT 95–99
--- NOTE | 2020-02-15 | PATH_ITS ---
[facility] Accession Number: [id number] . 01 Material submitted: . PART A: hepatic flexure - POLYP HEPATIC FLEXURE PART B: colon - POLYP ASCENDING COLON PART C: colon - POLYP AT 40 CM PART D: colon - POLYP AT 20 CM - AREA INKED . 01 Clinical history: . BLOOD IN HER STOOL . 02 Diagnosis: A. Hepatic Flexure, Polyp, Biopsy: Tubular adenoma. . B. Ascending Colon, Polyp, Biopsy: Tubular adenoma. . C. Colon, Polyp At 40 CM, Biopsy: Tubular adenoma. . D. Colon, Polyp At 20 CM, Biopsy: Invasive adenocarcinoma, moderately-differentiated, with mucinous features. Arises in a background of tubulovillous adenoma. Please see comment. [facility] 02/17/2020 1247 Local . 02 Comment: D. As part of routine quality supervisor, Dr. Thomas also reviewed selected images from part D of this case and agrees with the diagnosis. Mismatch repair IHC will be performed, and the results reported as an addendum. . . 02 Electronically signed: . Pinky Romo MD, Pathologist NPI- [id number] . 01 Gross description: . Part A: POLYP HEPATIC FLEXURE: Received in formalin are 2 fragment(s) of ennis, soft tissue measuring 0.1 x 0.1 x 0.1 cm to 0.3 x 0.2 x 0.2 cm submitted entirely in 1 cassette(s) Part B: POLYP ASCENDING COLON: Received in formalin are 2 fragment(s) of ennis, soft tissue measuring 0.2 x 0.2 x 0.2 cm to 0.3 x 0.2 x 0.2 cm submitted entirely in 1 cassette(s) Part C: POLYP AT 40 CM: Received in formalin are 2 fragment(s) of ennis, soft tissue measuring 0.2 x 0.2 x 0.2 cm to 0.3 x 0.2 x 0.2 cm submitted entirely in 1 cassette(s) Part D: POLYP AT 20 CM - AREA INKED: Received in formalin are multiple fragment(s) of ennis, soft tissue measuring 0.1 x 0.1 x 0.1 cm to 0.3 x 0.2 x 0.2 cm submitted entirely in 1 cassette(s) /[facility] [place] 02/16/20202038 Local . 02 Pathologist provided ICD-10: C18.9, D12.3, D12.2, D12.6 . 02 CPT . 371799, 878327, [id number], 747076, [id number], [id number] Performed at: 01 [facility] [address] [id number] MD Cj Galvan MD Phone: [phone] Performed at: 02 [facility] [id number] [place] [id number] MD Pinky Romo MD Phone: [phone]
[2020-02-15] MEDS: SODIUM CHLORIDE 0.9% 1,000 ML 100 ML IV ×3 (01:08→12:02)
[2020-02-15 05:11] LABS: Add Manual Diff / Slide Review NO; Basophils Absolute Auto 100 /uL (0-100); Basophils Percent Auto 1.2 % (0-2); Eosinophils Absolute Auto 200 /uL (0-450); Eosinophils Percent Auto 2.4 % (2-4); Hemoglobin 10.2 g/dL (12.0-16.0); Lymphocytes Absolute Auto 1500 /uL (1100-4500); Lymphocytes Percent Auto 20.9 % (25-40); Monocytes Absolute Auto 600 /uL (0-900); Monocytes Percent Auto 8.8 % (3-14); Neutrophils Absolute Auto 4800 /uL (1500-7000); Neutrophils Percent Auto 66.7 % (50-75); Platelet Count 270 X10^3/uL (150-400); Red Blood Cell Count 3.29 X10^6/uL (4.0-5.2); Red Cell Distribution Width 12.9 % (11.6-14.8); White Blood Cell Count 7.3 X10^3/uL (4.5-11.0)
--- NOTE | 2020-02-15 05:26 | PC.NURSE ---
Reminded patient to drink more of her bowel prep. She stated I am trying.
[2020-02-15] MEDS: FLEETS ENEMA 1 EACH PR ×2 (09:05→10:30)
--- NOTE | 2020-02-15 09:27 | PM.PREOP ---
Pre-operative Note COVID-19 COVID-19 status: Negative Result date/Date tested (Pos, Neg/Pending): 02/14/20 Interval Note History & Physical reviewed/Exam performed by Physician: Yes Changes to H&P: Yes H&P completed within 30 days and has changed as indicated here:: Bleeding has stopped. I have discussed the procedure and the rationale with the patient including risks of bleeding, perforation which would necessitate a major operation, failure to find remove all lesions and the potential to tattoo. They appeared to understand and wished to proceed. ASA Class (for procedural sedation): I
--- NOTE | 2020-02-15 10:14 | CM.DPNOTE ---
DCP assessment note: EMR Reviewed: Patient went in for colonoscopy today to see if she has a GI bleed. Patients Plan is to D/C home to [facility] transported by her when medically stable. Patient will need priority boarding when she is ready to D/C. No other D/C planning needs noted at this time. Cm department will follow to assist with any new D/C planning needs that may arise. Eleanor Womack RN.
[2020-02-15] MEDS: MIDAZOLAM 5 MG/5 ML VIAL IV (11:47)
[2020-02-15] MEDS: fentaNYL 250 MCG/5 ML INJ IV (11:49)
--- NOTE | 2020-02-15 12:00 | PM.OP.ENDO ---
Operative Date/Time/Diagnoses Date of procedure: 02/15/20 Time of procedure: 12:00 Pre-op diagnosis: Rectal bleeding. Patient has never had a colonoscopy. Post-op diagnosis: same (Tumor at 15-20 cm from the anal verge. Additional 3 small polyps scattered: One at 40 cm, the hepatic flexure, and in the ascending colon.) Procedure & Clinicians Study performed: Colonoscopy with cold biopsy Same procedure as scheduled: Yes Indications: Determine cause of rectal bleeding Surgeon: Clinton Ambrocio Procedure Notes SCOAP/Timeout: Performed Procedure in detail: The patient was placed in the left lateral decubitus position and underwent IV sedation directed by the surgeon consisting of fentanyl and Versed. Digital exam was remarkable for visible external hemorrhoids without ulceration.. The scope was inserted and advanced through the rectum into the sigmoid, descending, transverse, and ascending colon. A mass was noted at about 20 cm from the anal verge on insertion. Sigmoid diverticulosis was noted. Two polyps were identified on the way in. One was at the hepatic flexure and the other in the ascending colon. Both of these were biopsied and appeared to be completely removed.. The cecum was reached identified by the ileocecal valve and the appendiceal opening. The ileocecal valve was successfully cannulated. The terminal ileum was normal in appearance. The scope was gradually brought out. One additional Polyp was found at 40 cm from the anal verge. It was biopsied and removed. There was a small polyp proximal to the mass and it was biopsied and removed the placed in the same container is the biopsies of the mass. Multiple deep biopsies were taken of the mass. There appeared to be some necrosis of portions of the surface. Additionally it was noted that the mass was near circumferential and about 5 cm in length with to its distal end at about 15 cm from the anal verge. Just distal to the lesion in normal appearing colon 3 sites were chosen to inject Dulce ink. The scope was gradually brought into the area near the anal verge. The scope ultimately was retroflexed in the rectum. The appearance was normal except for some hemorrhoidal scarring. The scope was removed and the patient tolerated the procedure well. The prep was excellent. Scope withdrawal time: Total of 15 minutes Sedation minutes: 27 Findings: diverticulosis (Sigmoid), polyp (Multiple small polyps) and possible cancer Specimen(s): other (Polyps and the mass.) Complications: none Post-procedure Recommendations: Other recommendation (CT scan for staging. This was ordered. CEA ordered.) Disposition: PACU
--- NOTE | 2020-02-15 12:27 | DI.CT.S_ITS ---
PROCEDURE: CT CHEST ABD PEL W CON INDICATIONS: cancer staging. mass at 15-20 cm from anal verge TECHNIQUE: After the administration of oral and intravenous contrast, 5 mm thick sections acquired from the lung apices to the symphysis. 5 mm coronal and sagittal reformats were performed, with additional 7 mm coronal MIP reformats through the lungs. For radiation dose reduction, the following was used: automated exposure control, adjustment of mA and/or kV according to patient size. COMPARISON: None. FINDINGS: Image quality: Excellent. CHEST: Lungs and pleura: There is a prominent cluster of nodules within the anterior aspect of the right lower lobe as well as posterior right upper lobe. The most superior nodule on series 3 image 109 is the largest measuring 10 mm. In addition, multiple nodules are present in the cluster within the posterior lateral left upper lobe best seen on series 3 images 8 and 7 through 105. The largest measures 11 mm on series 3 image 91. No pleural effusions or pneumothorax. Central and peripheral airways appear patent and normal in caliber. Mediastinum: Heart size is normal. No pericardial effusion. No mediastinal or hilar adenopathy by size criteria. Thoracic aorta and central pulmonary arteries are normal in size. Esophagus is normal in caliber. No hiatal hernia. Chest wall: No axillary or supraclavicular adenopathy by size criteria. Thyroid gland demonstrates bilateral low attenuation foci the largest measuring 7 mm. ABDOMEN: Solid organs: Liver demonstrates steatosis as well as the left hepatic lobe cyst. Gallbladder is unremarkable. Biliary system is non dilated. Pancreas enhances normally. Spleen is normal in size and enhancement. No adrenal nodules. Are atrophic with innumerable cysts bilaterally. Multiple cysts contain areas of calcification. In addition, a staghorn calculus is noted on the right. There is moderate to severe left hydronephrosis. 6 mm proximal left ureteral calculus, Hounsfield units 408 is present. Peritoneum and bowel: There is a high sigmoid focus of irregular luminal narrowing and wall thickening measuring approximately 4.4 mm AP by 5.8 cm transverse. There is a 10 mm anterior superior mesenteric soft tissue nodule on series 2 image 92. No free fluid or air. Nodes and vessels: No retroperitoneal or mesenteric adenopathy by size criteria. Aorta and inferior vena cava are normal in size. Miscellaneous: No ventral hernias. PELVIS: Genitourinary: Bladder wall thickness is normal. Miscellaneous: No inguinal hernias or adenopathy. Bones: No suspicious bony lesions. No vertebral body compression fractures. IMPRESSION: 1. High sigmoid mass as above. No gross fracture. Mesenteric soft tissue nodules present, concerning for metastatic focus. No adenopathy. 2. Bilateral pulmonary nodular clusters as above. This could be reflective of infection or inflammation, given wound sigmoid mass, metastatic disease cannot be excluded. Continued followup of these regions is recommended. 3. Obstructing proximal r calculus. 4. Prominent is bilateral renal cysts. 5. Staghorn right renal calculus, nonobstructing. Dictated by: Trisha Barney M.D. on 02/15/2020 at 14:20 Approved by: Trisha Barney M.D. on 02/15/2020 at 14:29
[2020-02-15 13:26] LABS: Carcinoembryonic Antigen 0.8 ng/mL (0.1-3.0)
[2020-02-15] MEDS: POTASSIUM CHLORIDE 20 MEQ TAB PO ×2 (13:54→20:42)
--- NOTE | 2020-02-15 14:10 | PC.NURSE ---
Day Shift Note Pt with golytely at bedside at start of shift, original golytely container appeared close to full. Pt instructed on importance of ingesting golytely solution as she had a 0900 colonscopy scheduled. Agreeable and was ultimately able to ingest about 2L of golytely. Stools at this time still brown and loose. Surgery staff updated and Dr. Ambrocio at bedside, ordered Fleet's enema with immediate results. Colonoscopy pushed to 1100 and additional Fleet's enema administered per MD order at 1030. Stool loose/yellow with some visible blood and solid particles. Update to surgery staff and pt picked up for colonoscopy at 1100. Returned to room at 1220, alert and oriented. VSS. Denies pain. Call light within reach, using appropriately to make needs known. Bed alarm on.
[2020-02-15 16:48] LABS: Appearance Urine UA CLEAR; Bilirubin Urine UA NEGATIVE (NEGATIVE); Color Urine UA YELLOW; Glucose Urine UA NEGATIVE (Negative); Ketones Urine UA 1+ (NEGATIVE); Leukocyte Esterase Urine UA 3+ (NEGATIVE); Nitrite Urine UA NEGATIVE (Negative); Occult Blood Urine UA 2+ (Negative); Protein Urine UA NEGATIVE (Negative); Urobilinogen Urine UA 0.2 E.U./dL (0.2)
[2020-02-15 17:28] LABS: pH Urine UA 6.5 (4.5-8.0)
[2020-02-15 17:29] LABS: Bacteria Urine Many (>30); Culture Indicated Urine Specimen Cultured; RBC Urine 5-10/HPF (0-5/HPF); Squamous Epithelial Cell Urine 0-1 /HPF (0-5/HPF); WBC Urine 30-100/HPF (0-5/HPF)
--- NOTE | 2020-02-15 17:47 | PM.PN.1 ---
Subjective Subjective Date Patient Seen: 02/15/20 Time Patient Seen: 17:47 Interval history: Miranda Siddiqui is an 84-year-old female admitted with hematochezia. She has had no further episodes of bright red blood per rectum today. Her hemoglobin was stable this morning and she underwent her colonoscopy earlier today. Unfortunately revealed a large Colon mass as well as multiple polyps which were biopsied. After the procedure, she underwent a CT chest abdomen pelvis which revealed a sigmoid mass that was previously seen, some mesenteric soft tissue nodules but no adenopathy. She further had bilateral pulmonary nodular clusters however it was unclear if this is metastatic disease or not. Somewhat incidentally she was also noted to have an obstructing left renal calculus, bilateral renal cysts, and a staghorn right calculus which was nonobstructing. With this finding I called the urologist to will possibly see the patient tomorrow. Scheduling for possible stent placement will need to be coordinated with surgery regarding her colon mass. Surgery states that stent placement should be done prior to possible resection. A UA and urine culture were also sent, UA appears positive with many bacteria and many leukocytes. She has been asymptomatic. Exam Vital Signs (past 8 hours): - 02/15/20 11:50 02/15/20 11:55 02/15/20 12:00 Temperature 97.6 F 97.5 F L Pulse Rate 79 77 77 Respiratory Rate 18 18 17 Blood Pressure 134/65 138/68 127/63 Pulse Oximetry 98 97 97 02/15/20 12:05 02/15/20 12:12 02/15/20 12:24 Temperature 98.1 F Pulse Rate 74 73 70 Respiratory Rate 15 17 15 Blood Pressure 130/63 129/60 145/77 H Pulse Oximetry 97 97 97 02/15/20 12:54 02/15/20 13:24 02/15/20 15:32 Temperature 97.5 F L 97.5 F L 97.9 F Pulse Rate 72 68 80 Respiratory Rate 16 16 18 Blood Pressure 141/70 H 145/69 H 150/75 H Pulse Oximetry 95 95 99 02/15/20 15:40 Temperature Pulse Rate Respiratory Rate Blood Pressure Pulse Oximetry 99 Oxygen Delivery Method Room Air Oxygen Flow Rate 0 Objective Labs Result Diagrams: 02/15/20 04:45 02/14/20 13:04 Labs: Laboratory Results - last 24 hr 02/14/20 02/14/2002/14/20 16:40 19:28 04:45 WBC 7.3 RBC 3.29 L Hgb 10.2 L 10.2 L Hct 30.0 L 30.0 L MCV 91.0 MCH 31.0 MCHC 34.0 RDW 12.9 Plt Count 270 Neut % (Auto) 66.7 Lymph % (Auto) 20.9 L [place] % (Auto) 8.8 Eos % (Auto) 2.4 Baso % (Auto) 1.2 Neut # (Auto) 4800 Lymph # (Auto) 1500 [place] # (Auto) 600 Eos # (Auto) 200 Baso # (Auto) 100 Carcinoembryonic Ag Urine Color Urine Appearance Urine pH Ur Specific [place] Urine Protein Urine Glucose (UA) Urine Ketones Urine Occult Blood Urine Nitrate Urine Bilirubin Urine Urobilinogen Ur Leukocyte Esterase Urine RBC Urine WBC Ur Squamous Epith Cells Urine Bacteria Ur Culture Indicated? COVID-19 PCR Negative 02/15/20 02/15/20 04:45 16:45 WBC RBC Hgb Hct MCV MCH MCHC RDW Plt Count Neut % (Auto) Lymph % (Auto) [place] % (Auto) Eos % (Auto) Baso % (Auto) Neut # (Auto) Lymph # (Auto) [place] # (Auto) Eos # (Auto) Baso # (Auto) Carcinoembryonic Ag 0.8 Urine Color Yellow Urine Appearance Clear Urine pH 6.5 Ur Specific [place] [employer] 1.010 Urine Protein Negative Urine Glucose (UA) Negative Urine Ketones 1+ H Urine Occult Blood 2+ H Urine Nitrate Negative Urine Bilirubin Negative Urine Urobilinogen 0.2 Ur Leukocyte Esterase 3+ H Urine RBC 5-10/hpf H Urine WBC 30-100/hpf H Ur Squamous Epith Cells 0-1 /hpf Urine Bacteria Many (>30) H Ur Culture Indicated? Specimen cultured COVID-19 PCR Assessment & Plan Assessment & Plan narrative: Miranda Siddiqui is an 84-year-old female admitted with hematochezia. She was found to have a sigmoid mass on colonoscopy with mesenteric nodules and possible pulmonary nodules, incidentally she was also found to have an obstructing renal calculus on the left as well as a staghorn calculus on the right. 1. Hematochezia, secondary to sigmoid mass, present on admission -her aspirin been held -Colonoscopy 02/15/20 found a sigmoid mass and multiple other polyps. Biopsies were taken. -hemoglobin has been stable x3 at 10.2, after the procedure patient had another episode of blood per rectum. Will continue to follow and transfuse for Hg <7. -continue clears -patient was given IV Protonix, however this has been discontinued. -maintain active type and screen -appreciate management from surgery, Dr. Ambrocio. -CT chest abdomen pelvis which revealed a sigmoid mass that was previously seen, some mesenteric soft tissue nodules but no adenopathy. She further had bilateral pulmonary nodular clusters however it was unclear if this is metastatic disease or not. -CEA 0.8 2. 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 - UA grossly positive, will start ceftriaxone pending cultures despite asymptomatic given possible intervention - Contacted Urology, Dr. Lozoya today, and plans to discuss plans with surgery tomorrow. Possible intervention with stent placement soon, however timing unclear and will need to coordinate tomorrow. - continue to follow renal function. 3. Possible kidney disease, unknown if acute or chronic -previous lab testing showing a creatinine of 1.2, however unknown clear baseline. Patient presented with a slightly elevated creatinine but not indicative of CALDERON and has improved to 1.2. Given hydronephrosis, it is possible that this is an acute kidney injury rather than CKD 3, however it will take time to fully know this. Consults: General surgery Dr. Ambrocio, urology Dr. Lozoya VTE prophylaxis: Bilateral SCDs Dispo: Probable discharge to home, timing uncertain given hydronephrosis and newly diagnosed malignancy. Code Status: Full code as discussed with patient, surrogate decision maker is the patient's , Alex Siddiqui. Quality VTE Deep Vein Thrombosis/Pulmonary Embolism Present on Admission: No
[2020-02-15] MEDS: SODIUM CHLORIDE 0.9% 250 ML 21 ML IV (18:41)
[2020-02-15] MEDS: CEFTRIAXONE 1 GM/50 ML FROZ.PIGGY IV (18:41)
[2020-02-15] MEDS: LATANOPROST 0.005% OPHTH 2.5 ML 1 DROPS EYE-BOTH (20:42)
--- NOTE | 2020-02-15 21:44 | PC.NURSE ---
A&OX3. forgetful. pt has urinary frequency. pt denied any pain. no n/v. no sob. comfortable in bed. pt refused her dinner. call light in reach. bed alarm active.
[2020-02-16] VITALS (10 sets, daily range): BP systolic 134–147; BP diastolic 68–73; PULSE 73–83; RESP 14–19; TEMP 36.4–37.3; O2SAT 94–99
[2020-02-16 05:31] LABS: Add Manual Diff / Slide Review NO; Basophils Absolute Auto 100 /uL (0-100); Basophils Percent Auto 0.8 % (0-2); Eosinophils Absolute Auto 200 /uL (0-450); Eosinophils Percent Auto 2.2 % (2-4); Hematocrit 29.4 % (36-46); Hemoglobin 10.1 g/dL (12.0-16.0); Lymphocytes Absolute Auto 1500 /uL (1100-4500); Lymphocytes Percent Auto 19.1 % (25-40); Mean Corpuscular HGB Conc 34.5 % (30-36); Mean Corpuscular Hemoglobin 31.4 PG (26-34); Mean Corpuscular Volume 91.1 fL (80-100); Monocytes Absolute Auto 700 /uL (0-900); Monocytes Percent Auto 8.7 % (3-14); Neutrophils Absolute Auto 5400 /uL (1500-7000); Neutrophils Percent Auto 69.2 % (50-75); Platelet Count 291 X10^3/uL (150-400); Red Blood Cell Count 3.22 X10^6/uL (4.0-5.2); White Blood Cell Count 7.9 X10^3/uL (4.5-11.0)
[2020-02-16 05:41] LABS: Alanine Aminotransferase 9 IU/L (<35); Albumin 3.2 g/dL (3.5-5.0); Albumin Globulin Ratio 1.1 (1.0-2.8); Alkaline Phosphatase 65 U/L (38-126); Aspartate Aminotransferase 21 IU/L (14-36); BUN Creatinine Ratio 8.8 (6-22); Bilirubin Total 0.4 mg/dL (0.2-1.3); Bilirubin Unconjugated 0.3 mg/dL (0.0-1.1); Blood Urea Nitrogen 9 mg/dL (7-17); Calcium 9.8 mg/dL (8.4-10.2); Carbon Dioxide 21 mmol/L (22-32); Chloride 111 mmol/L (98-107); Estimated Glomerular Filt Rate 51.6 mL/min (>60); Glucose 82 mg/dL (80-110); HEMOLYSIS < 15 (0-50); Magnesium 1.6 mg/dL (1.6-2.3); Potassium 4.3 mmol/L (3.4-5.1); Sodium 140 mmol/L (137-145); Total Protein 6.2 g/dL (6.3-8.2)
--- NOTE | 2020-02-16 11:50 | PC.NURSE ---
Addendum entered by Laly Diaz R.N. 02/16/20 14:25: Pt's Son Alex visited with pt from 1310 to [address] Doty in pt's room during that time. Addendum entered by Laly Diaz R.N. 02/16/20 12:58: Dr. Dupont called and spoke with pt's GRISEL Murray as this RN was not available. Dr. Dupont requesting that the Hospitalist update pt's son Alex as he is on his way to hospital prior to going to [facility]. Dr. Doty unable to speak with Alex at this time over the phone. no new updates regarding plan of care. This comic writer spoke with [employer] at 1253. Okay for pt's son Alex to come into hospital to pt's room and stay in room until Dr rounds on pt. Called Alex on his cell phone at 1257 and made aware he may come visit his mother in room 221 and wait for an update. Original Note: Day shift- Pt refused clear liquid diet tray this AM, stated nothing tasted good to her. I'll stick with water. Denies abd pain, cramping, bloating, nausea, shortness of breath, chest pain or pressure. States had small loose BM this morning iwth small amount of blood present. Pt -Lj Siddiqui called a few times, spoke with RN Coordinator Magalie this morning, also message left with [facility]ha community health program coordinator. who relayed message to this comic writer. Lj called again at 1010 and brief update given. He was asking when Physician conference would be today as he is currently on [facility] and needs at least 3 hours to coordinate travel. Spoke to Dr. Doty, who has pt's husbands phone number, no updates at this time. Dr. Doty working on speaking with Urologist and General Surgery. At 1200, Pt's son Alex called who is driving from [place]. Update given, he wanted to come visit his mother and due to limited visitors at this time, is unable to visit. Dr. Doty aware that Alex wants to speak with Dr regarding an update. Again no new updates from yesterdays plan of care. Alex plans to call back before 1500 for an update.
--- NOTE | 2020-02-16 13:55 | DI.RAD.S_ITS ---
PROCEDURE: XR KUB INDICATIONS: R staghorn calculus, request from Urology TECHNIQUE: One view of the abdomen acquired. COMPARISON: [facility], CR, XR LUMBAR SPINE 2-3V, 05/12/2019, 11:46. [facility], CT, CT CHEST ABD PEL W CON, 02/15/2020, 13:44. FINDINGS: Surgical changes and devices: None. Bowel: Bowel gas pattern is normal. Soft tissues: There is plain film visualization of this patient's right staghorn calculus, which measures at least centimeters. The inferior pole of the right kidney, there is an additional nonobstructing stone measuring 12 mm. There is also plain film visualization of the patient's known left ureteral stone measuring 12 mm. Nonobstructing left-sided kidney stones are also seen. Bones: No suspicious bony lesions. Age-appropriate bony degenerative changes are seen. IMPRESSION: Plain film visualization of this patient's left ureteral stone, nonobstructing left-sided kidney stones, and extensive right-sided kidney stones (including a prominent staghorn calculus). Dictated by: Pio Cali M.D. on 02/16/2020 at 15:06 Approved by: Pio Cali M.D. on 02/16/2020 at 15:08
--- NOTE | 2020-02-16 17:29 | PM.PNPO.1 ---
Subjective Subjective Date Patient Seen: 02/16/20 Time Patient Seen: 17:29 Interval history: Would like to go home but also wants the staying get everything taken care of. Exam Vital Signs (past 8 hours): - 02/16/20 11:00 02/16/20 15:00 02/16/20 15:29 Temperature 98.9 F 97.6 F Pulse Rate 76 80 Respiratory Rate 14 17 Blood Pressure 134/70 147/70 H Pulse Oximetry 99 99 99 Oxygen Delivery Method Room Air Oxygen Flow Rate 0 Objective Labs Result Diagrams: 02/16/20 05:20 02/16/20 05:20 Labs: Laboratory Results - last 24 hr 02/15/20 02/16/20 02/16/20 16:45 05:20 05:20 WBC 7.9 RBC 3.22 L Hgb 10.1 L Hct 29.4 L MCV 91.1 MCH 31.4 MCHC 34.5 RDW 13.0 Plt Count 291 Neut % (Auto) 69.2 Lymph % (Auto) 19.1 L [place] % (Auto) 8.7 Eos % (Auto) 2.2 Baso % (Auto) 0.8 Neut # (Auto) 5400 Lymph # (Auto) 1500 [place] # (Auto) 700 Eos # (Auto) 200 Baso # (Auto) 100 Sodium 140 Potassium 4.3 Chloride 111 H Carbon Dioxide 21 L BUN 9 Creatinine 1.02 Estimated GFR 51.6 L BUN/Creatinine Ratio 8.8 Glucose 82 Calcium 9.8 Magnesium 1.6 Total Bilirubin 0.4 Conjugated Bilirubin 0.0 Unconjugated Bilirubin 0.3 AST 21 ALT 9 Alkaline Phosphatase 65 Total Protein 6.2 L Albumin 3.2 L Globulin 3.0 Albumin/Globulin Ratio 1.1 Urine Color Yellow Urine Appearance Clear Urine pH 6.5 Ur Specific [place] 1.010 Urine Protein Negative Urine Glucose (UA) Negative Urine Ketones 1+ H Urine Occult Blood 2+ H Urine Nitrate Negative Urine Bilirubin Negative Urine Urobilinogen 0.2 Ur Leukocyte Esterase 3+ H Urine RBC 5-10/hpf H Urine WBC 30-100/hpf H Ur Squamous Epith Cells 0-1 /hpf Urine Bacteria Many (>30) H Ur Culture Indicated? Specimen cultured Assessment & Plan Post-op Postoperative Procedures: Procedures Operation Date: 02/15/20 09:00 Actual Procedures Side Surgeon p Colonoscopy with Polypectomy/INKING/BIOPSIES Not Applicable Clinton Ambrocio MD Postoperative status narrative: Post colonoscopy. I talked to her about plans. Postoperative plan narrative: Urology will stent tomorrow to deal with her obstructed ureter. May proceed to colon resection later this week hopefully Sunday. Quality VTE Deep Vein Thrombosis/Pulmonary Embolism Present on Admission: No
[2020-02-16] MEDS: CEFTRIAXONE 1 GM/50 ML FROZ.PIGGY IV (17:39)
--- NOTE | 2020-02-16 18:53 | PM.PN.1 ---
Subjective Subjective Date Patient Seen: 02/16/20 Time Patient Seen: 10:30 Interval history: Miranda Siddiqui is an 84-year-old female admitted with hematochezia. Unfortunately colonoscopy revealed a large Colon mass as well as multiple polyps which were biopsied. After the procedure, she underwent a CT chest abdomen pelvis which revealed a sigmoid mass that was previously seen, some mesenteric soft tissue nodules but no adenopathy. She further had bilateral pulmonary nodular clusters however it was unclear if this is metastatic disease or not. Somewhat incidentally she was also noted to have an obstructing left renal calculus, bilateral renal cysts, and a staghorn right calculus which was nonobstructing. She is planned for urological interventions likely tomorrow, and may undergo surgical intervention for her colon mass the following day per discussions with surgery and Urology today. Her urinalysis was positive and she was started on ceftriaxone yesterday, however her urine cultures have somewhat remarkably had no growth. Today is day 2 of ceftriaxone. She continues to remain asymptomatic from her renal issues, she denies any flank pain, abdominal pain, nausea, vomiting, dysuria, new urinary frequency. She does report 1 bloody bowel movement this morning. Her hemoglobin is fairly stable today at 10.1. Exam Vital Signs (past 8 hours): - 02/16/20 11:00 02/16/20 15:00 02/16/20 15:29 Temperature 98.9 F 97.6 F Pulse Rate 76 80 Respiratory Rate 14 17 Blood Pressure 134/70 147/70 H Pulse Oximetry 99 99 99 Oxygen Delivery Method Room Air Oxygen Flow Rate 0 Narrative Exam Narrative: GENERAL APPEARANCE: Well developed, well nourished, in no acute distress. SKIN: Inspection of the skin reveals no rashes, ulcerations or petechiae. HEENT: Normocephalic atraumatic, extraocular muscles are intact, oropharynx is clear and mucous membranes are moist, neck is supple without adenopathy NECK: Supple and symmetric. There was no thyroid enlargement, and no tenderness, or masses were felt. CHEST: Normal AP diameter and normal contour without any kyphoscoliosis. LUNGS: Auscultation of the lungs revealed no wheezes, rhonchi, or rales. CARDIOVASCULAR: There was a regular rate and rhythm without any murmurs, gallops, rubs. Peripheral pulses were 2+ and symmetric. ABDOMEN: Soft, nontender, without guarding or rebound. No ascites. MUSCULOSKELETAL: There was no tenderness or effusions noted. Muscle strength and tone were normal. EXTREMITIES: No cyanosis, clubbing or edema. NEUROLOGIC: Alert and oriented x 3. Normal affect. Gait was normal. Strength is +5/5 in the Upper Extremities and Lower Extremities Bilaterally. Sensation to touch was normal. Objective Labs Result Diagrams: 02/16/20 05:20 02/16/20 05:20 Labs: Laboratory Results - last 24 hr 02/16/20 02/16/20 05:20 05:20 WBC 7.9 RBC 3.22 L Hgb 10.1 L Hct 29.4 L MCV 91.1 MCH 31.4 MCHC 34.5 RDW 13.0 Plt Count 291 Neut % (Auto) 69.2 Lymph % (Auto) 19.1 L [place] % (Auto) 8.7 Eos % (Auto) 2.2 Baso % (Auto) 0.8 Neut # (Auto) 5400 Lymph # (Auto) 1500 [place] # (Auto) 700 Eos # (Auto) 200 Baso # (Auto) 100 Sodium 140 Potassium 4.3 Chloride 111 H Carbon Dioxide 21 L BUN 9 Creatinine 1.02 Estimated GFR 51.6 L BUN/Creatinine Ratio 8.8 Glucose 82 Calcium 9.8 Magnesium 1.6 Total Bilirubin 0.4 Conjugated Bilirubin 0.0 Unconjugated Bilirubin 0.3 AST 21 ALT 9 Alkaline Phosphatase 65 Total Protein 6.2 L Albumin 3.2 L Globulin 3.0 Albumin/Globulin Ratio 1.1 Assessment & Plan Assessment & Plan narrative: Miranda Siddiqui is an 84-year-old female admitted with hematochezia. She was found to have a sigmoid mass on colonoscopy with mesenteric nodules and possible pulmonary nodules, incidentally she was also found to have an obstructing renal calculus on the left as well as a staghorn calculus on the right. She is planned for urologic interventions tomorrow, and possible surgical interventions for her colonic mass the following day. 1. Hematochezia, secondary to sigmoid mass, present on admission -her aspirin been held -Colonoscopy 02/15/20 found a sigmoid mass and multiple other polyps. Biopsies were taken. -hemoglobin has been stable x3 at 10.2, after the procedure patient had another episode of blood per rectum. Will continue to follow and transfuse for Hg <7. -continue clears -patient was given IV Protonix, however this has been discontinued. -maintain active type and screen -appreciate management from surgery, Dr. Ambrocio. Possible surgical interventions planned for 02/18/2020 per discussions with surgery today. -CT chest abdomen pelvis which revealed a sigmoid mass that was previously seen, some mesenteric soft tissue nodules but no adenopathy. She further had bilateral pulmonary nodular clusters however it was unclear if this is metastatic disease or not. -CEA 0.8 2. 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 - UA grossly positive, will start ceftriaxone pending cultures despite asymptomatic given possible intervention - Contacted Urology, Dr. Lozoya today. Possible intervention with stent placement tomorrow. - continue to follow renal function. -KUB requested by Dr. Lozoya showed known nephrolithiasis as noted above. 3. Possible kidney disease, unknown if acute or chronic -previous lab testing showing a creatinine of 1.2, however unknown clear baseline. Patient presented with a slightly elevated creatinine but not indicative of CALDERON and has improved to 1.2. Given hydronephrosis, it is possible that this is an acute kidney injury rather than CKD 3, however it will take time to fully know this. Creatinine has improved slightly to 1.02 today. Consults: General surgery Dr. Ambrocio, urology Dr. Lozoya VTE prophylaxis: Bilateral SCDs Dispo: Probable discharge to home, timing uncertain given hydronephrosis and newly diagnosed malignancy. Code Status: Full code as discussed with patient, surrogate decision maker is the patient's , Alex Siddiqui. Quality VTE Deep Vein Thrombosis/Pulmonary Embolism Present on Admission: No
[2020-02-16] MEDS: LATANOPROST 0.005% OPHTH 2.5 ML 1 DROPS EYE-BOTH (20:39)
[2020-02-17] VITALS (19 sets, daily range): BP systolic 87–191; BP diastolic 49–89; PULSE 63–84; RESP 14–18; TEMP 36.1–37.1; O2SAT 92–100; BMI 22.6
--- NOTE | 2020-02-17 | DI.RAD.S_ITS ---
PROCEDURE: XR KUB INDICATIONS: BILATERAL CYSTO TECHNIQUE: One view of the abdomen acquired. COMPARISON: [facility], CR, XR KUB, 02/16/2020, 15:35. FINDINGS: Surgical changes and devices: Bilateral ureteral guidewire and ureteral drainage catheters are depicted, partially included in the images, and this patient with multiple bilateral right greater than left extensive collecting system calculi.. Bowel: Bowel gas pattern is normal where seen. Soft tissues: No suspicious abdominal calcifications. Visualized solid organ contours appear normal in size. Bones: No suspicious bony lesions. IMPRESSION: This is a limited evaluation in the setting of bilateral ureteral cannulation by guidewires and drainage catheters. Only a small portion of the entire procedure is included on the plain film images. Postprocedural plain film imaging is not available for review. Dictated by: David Nuñez M.D. on 02/17/2020 at 18:57 Approved by: David Nuñez M.D. on 02/17/2020 at 18:59
[2020-02-17 05:19] LABS: Add Manual Diff / Slide Review NO; Basophils Absolute Auto 100 /uL (0-100); Basophils Percent Auto 1.2 % (0-2); Eosinophils Absolute Auto 200 /uL (0-450); Eosinophils Percent Auto 3.2 % (2-4); Hematocrit 32.1 % (36-46); Hemoglobin 10.9 g/dL (12.0-16.0); Lymphocytes Absolute Auto 1500 /uL (1100-4500); Lymphocytes Percent Auto 19.8 % (25-40); Mean Corpuscular HGB Conc 34.1 % (30-36); Monocytes Absolute Auto 600 /uL (0-900); Monocytes Percent Auto 7.5 % (3-14); Neutrophils Absolute Auto 5300 /uL (1500-7000); Neutrophils Percent Auto 68.3 % (50-75); Platelet Count 325 X10^3/uL (150-400); Red Blood Cell Count 3.52 X10^6/uL (4.0-5.2); Red Cell Distribution Width 12.9 % (11.6-14.8); White Blood Cell Count 7.8 X10^3/uL (4.5-11.0)
[2020-02-17 05:27] LABS: Alanine Aminotransferase 10 IU/L (<35); Albumin 3.6 g/dL (3.5-5.0); Albumin Globulin Ratio 1.2 (1.0-2.8); Alkaline Phosphatase 70 U/L (38-126); Aspartate Aminotransferase 23 IU/L (14-36); BUN Creatinine Ratio 9.2 (6-22); Bilirubin Total 0.5 mg/dL (0.2-1.3); Bilirubin Unconjugated 0.4 mg/dL (0.0-1.1); Blood Urea Nitrogen 9 mg/dL (7-17); Calcium 9.9 mg/dL (8.4-10.2); Carbon Dioxide 18 mmol/L (22-32); Chloride 110 mmol/L (98-107); Estimated Glomerular Filt Rate 54.1 mL/min (>60); Globulin 3.1 g/dL (1.7-4.1); Glucose 73 mg/dL (80-110); HEMOLYSIS < 15 (0-50); Magnesium 1.6 mg/dL (1.6-2.3); Potassium 4.4 mmol/L (3.4-5.1); Sodium 140 mmol/L (137-145); Total Protein 6.7 g/dL (6.3-8.2)
[2020-02-17] MEDS: DEXTROSE 5%-0.9% NS 1,000 ML 75 ML IV (06:46)
--- NOTE | 2020-02-17 08:01 | P.CONS_ITS ---
History of Present Illness Consult details Date Patient Seen: 02/17/20 Time Patient Seen: 08:01 Chief complaint: blood in her stool Reason for consult: 1. Bilateral upper tract urolithiasis 2. Urinary tract infection Requesting provider: Alex Doty Narrative: The patient is an 84-year-old white female who presented to [facility] Emergency Department with complaint of hematochezia. Evaluation included contrast CT that revealed large volume right intrarenal stone disease and a lower pole partial staghorn calculus on the right. There is mild right renal parenchymal atrophy. The left kidney is severely atrophic with a little if any remaining parenchyma. There is a 6 mm x 12 mm obstructing proximal left ureteral stone, probably chronic. Urinalysis was remarkable for 3+ bacteria leukocyte esterase positive and multiple white cells. Preliminary culture of 48 hours is no growth. Meds Home Medications and Allergies Home Medications Medication Instructions Recorded Confirmed Type latanoprost 0.005 % eye drops 1 drp EYE-BOTH BID ml 06/24/19 02/13/20 History aspirin [Aspir-81] 81 mg PO DAILY 02/13/20 02/13/20 History Allergies Allergy/AdvReac Type Severity Reaction Status Date / Time No Known Drug Allergies Allergy Unverified 06/24/19 10:47 Review of Systems Review of Systems ROS: Yes All systems reviewed with the patient and are negative except as oth erwise documented Exam Vital Signs (past 8 hours): - 02/17/20 05:04 Temperature 97.1 F L Pulse Rate 84 Respiratory Rate 16 Blood Pressure 154/82 H Pulse Oximetry 99 Oxygen Delivery Method Room Air Oxygen Flow Rate 0 Narrative Exam Narrative: She is an elderly white female lying comfortably in bed in no acute distress. Head and neck exam is unremarkable sclerae are clear. Chest equal and unlabored expansion bilaterally. Heart rate is regular. Abdomen is nondistended with active bowel sounds. No tenderness guarding or rebound were identified. Extremities are warm without pallor cyanosis. Objective Labs Result Diagrams: 02/17/20 05:00 02/17/20 05:00 Labs: Laboratory Results - last 24 hr 02/17/20 02/17/20 05:00 05:00 WBC 7.8 RBC 3.52 L Hgb 10.9 L Hct 32.1 L MCV 91.0 MCH 31.0 MCHC 34.1 RDW 12.9 Plt Count 325 Neut % (Auto) 68.3 Lymph % (Auto) 19.8 L [place] % (Auto) 7.5 Eos % (Auto) 3.2 Baso % (Auto) 1.2 Neut # (Auto) 5300 Lymph # (Auto) 1500 [place] # (Auto) 600 Eos # (Auto) 200 Baso # (Auto) 100 Sodium 140 Potassium 4.4 Chloride 110 H Carbon Dioxide 18 L BUN 9 Creatinine 0.98 Estimated GFR 54.1 L BUN/Creatinine Ratio 9.2 Glucose 73 L Calcium 9.9 Magnesium 1.6 Total Bilirubin 0.5 Conjugated Bilirubin 0.0 Unconjugated Bilirubin 0.4 AST 23 ALT 10 Alkaline Phosphatase 70 Total Protein 6.7 Albumin 3.6 Globulin 3.1 Albumin/Globulin Ratio 1.2 Assessment & Plan Assessment & Plan narrative: Assessment: 1. Multiple nonobstructing right renal calculi and partial staghorn. 2. Chronically obstructing 6 mm x 12 mm left proximal ureteral calculus associated with a markedly atrophic left kidney, probably nonfunctioning. 3. Urinary tract infection, probably chronic. Culture pending. 4. 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 Plan: 1. Discussion informed consent and scheduling today for placement bilateral ureteral stents. Dr. Ambrocio has requested stents for localization for likely planned colon resection in the coming days. 2. Address of the stone situation is developing and will required a staged approach.
[2020-02-17 10:35] LABS: H. Pylori Antigen Stool Negative (Negative)
--- NOTE | 2020-02-17 13:09 | CM.DPC ---
DCP/continued: Reviewed chart. Met with patient explained CM/SW role. Patient alert and oriented at time of visit. Patient reports that she plans to have surgery today and another tomorrow. Patient hopeful once both surgeries completed she will be able to return home. Patient has supportive spouse and does not anticipate any d/c planning needs. P: Home when stable. Patient will need priority boarding pass to return to [place]. No additional d/c planning needs identified. CM team to continue to follow. JOSH Ron
--- NOTE | 2020-02-17 14:27 | PC.NURSE ---
Shift summary: A&O X3. Somewhat NINILCHIK. Denies pain, nausea, abd discomfort. No stools on this shift. No other s/sx bleeding noted. VSS. C/O feeling a little lightheaded with ambulation, but has gotten in and out of BR safely with SBA holding onto IV pole. CBG check before noon was 112. NPO since midnight for anticipated procedure this afternoon (@1630) w/ Dr Lozoya. Denies pain/burning or any other issues with urination. Able to move herself independently in bed and has been calling appropriately for assist OOB. Call light and belongings within reach, bed alarm on.
--- NOTE | 2020-02-17 15:00 | PM.PN.1 ---
Subjective Subjective Date Patient Seen: 02/17/20 Time Patient Seen: 08:30 Interval history: Miranda Siddiqui is an 84-year-old female admitted with hematochezia. Unfortunately colonoscopy revealed a large Colon mass as well as multiple polyps which were biopsied. After the procedure, she underwent a CT chest abdomen pelvis which revealed a sigmoid mass that was previously seen, some mesenteric soft tissue nodules but no adenopathy. She further had bilateral pulmonary nodular clusters however it was unclear if this is metastatic disease or not. Somewhat incidentally she was also noted to have an obstructing left renal calculus, bilateral renal cysts, and a staghorn right calculus which was nonobstructing. She is planned for urological interventions today, and may undergo surgical intervention for her colon mass tomorrow. Her urinalysis was positive and she was started on ceftriaxone yesterday, however her urine cultures have somewhat remarkably had no growth. Today is day 3 of ceftriaxone. She continues to remain asymptomatic from her renal issues, she denies any flank pain, abdominal pain, nausea, vomiting, dysuria, new urinary frequency. She had a clear bowel movement today without blood. Her Hg improved to 10.9. Exam Vital Signs (past 8 hours): - 02/17/20 07:34 02/17/20 11:20 Temperature 97.8 F 98.3 F Pulse Rate 73 72 Respiratory Rate 16 16 Blood Pressure 137/71 139/74 Pulse Oximetry 98 99 Oxygen Delivery Method Room Air Oxygen Flow Rate 0 Narrative Exam Narrative: GENERAL APPEARANCE: Well developed, well nourished, in no acute distress. SKIN: Inspection of the skin reveals no rashes, ulcerations or petechiae. HEENT: Normocephalic atraumatic, extraocular muscles are intact, oropharynx is clear and mucous membranes are moist, neck is supple without adenopathy NECK: Supple and symmetric. There was no thyroid enlargement, and no tenderness, or masses were felt. CHEST: Normal AP diameter and normal contour without any kyphoscoliosis. LUNGS: Auscultation of the lungs revealed no wheezes, rhonchi, or rales. CARDIOVASCULAR: There was a regular rate and rhythm without any murmurs, gallops, rubs. Peripheral pulses were 2+ and symmetric. ABDOMEN: Soft, mild suprapubic and LLQ tenderness, without guarding or rebound. No ascites. MUSCULOSKELETAL: There was no tenderness or effusions noted. Muscle strength and tone were normal. EXTREMITIES: No cyanosis, clubbing or edema. NEUROLOGIC: Alert and oriented x 3. Normal affect. Strength is +5/5 in the Upper Extremities and Lower Extremities Bilaterally. Sensation to touch was normal. Objective Labs Result Diagrams: 02/17/20 05:00 02/17/20 05:00 Labs: Laboratory Results - last 24 hr 02/13/20 02/13/20 02/17/20 08:50 18:35 05:00 WBC 7.8 RBC 3.52 L Hgb 10.9 L Hct 32.1 L MCV 91.0 MCH 31.0 MCHC 34.1 RDW 12.9 Plt Count 325 Neut % (Auto) 68.3 Lymph % (Auto) 19.8 L [place] % (Auto) 7.5 Eos % (Auto) 3.2 Baso % (Auto) 1.2 Neut # (Auto) 5300 Lymph # (Auto) 1500 [place] # (Auto) 600 Eos # (Auto) 200 Baso # (Auto) 100 Sodium Potassium Chloride Carbon Dioxide BUN Creatinine Estimated GFR BUN/Creatinine Ratio Glucose Calcium Magnesium Total Bilirubin Conjugated Bilirubin Unconjugated Bilirubin AST ALT Alkaline Phosphatase Total Protein Albumin Globulin Albumin/Globulin Ratio H. pylori Antigen Negative Blood Type O Positive Antibody Screen Negative Crossmatch See Detail 02/17/20 05:00 WBC RBC Hgb Hct MCV MCH MCHC RDW Plt Count Neut % (Auto) Lymph % (Auto) [place] % (Auto) Eos % (Auto) Baso % (Auto) Neut # (Auto) Lymph # (Auto) [place] # (Auto) Eos # (Auto) Baso # (Auto) Sodium 140 Potassium 4.4 Chloride 110 H Carbon Dioxide 18 L BUN 9 Creatinine 0.98 Estimated GFR 54.1 L BUN/Creatinine Ratio 9.2 Glucose 73 L Calcium 9.9 Magnesium 1.6 Total Bilirubin 0.5 Conjugated Bilirubin 0.0 Unconjugated Bilirubin 0.4 AST 23 ALT 10 Alkaline Phosphatase 70 Total Protein 6.7 Albumin 3.6 Globulin 3.1 Albumin/Globulin Ratio 1.2 H. pylori Antigen Blood Type Antibody Screen Crossmatch Assessment & Plan Assessment & Plan narrative: Miranda Siddiqui is an 84-year-old female admitted with hematochezia. She was found to have a sigmoid mass on colonoscopy with mesenteric nodules and possible pulmonary nodules, incidentally she was also found to have an obstructing renal calculus on the left as well as a staghorn calculus on the right. She is planned for urologic interventions today, and possible surgical interventions for her colonic mass tomorrow. 1. Hematochezia, secondary to sigmoid mass, present on admission -her aspirin been held -Colonoscopy 02/15/20 found a sigmoid mass and multiple other polyps. Biopsies were taken. -hemoglobin has been stable x3 at 10.2, after the procedure patient had another episode of blood per rectum. Will continue to follow and transfuse for Hg <7. -continue clears to avoid further bowel prep before surgery. -patient was given IV Protonix, however this has been discontinued. -maintain active type and screen -appreciate management from surgery, Dr. Ambrocio. Possible surgical interventions planned for 02/18/2020 per discussions with surgery today. -CT chest abdomen pelvis which revealed a sigmoid mass that was previously seen, some mesenteric soft tissue nodules but no adenopathy. She further had bilateral pulmonary nodular clusters however it was unclear if this is metastatic disease or not. -CEA 0.8 2. 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 - UA grossly positive, have started ceftriaxone given urologic interventions planned. Culture without any growth. - Urology, Dr. Lozoya, interventions planned for today. 3. Possible kidney disease, unknown if acute or chronic -previous lab testing showing a creatinine of 1.2, however unknown clear baseline. Patient presented with a slightly elevated creatinine but not indicative of CALDERON and has improved to 1.2. Given hydronephrosis, it is possible that this is an acute kidney injury rather than CKD 3, however it will take time to fully know this. Creatinine has improved slightly to 0.98. Consults: General surgery Dr. Ambrocio, urology Dr. Lozoya VTE prophylaxis: Bilateral SCDs Dispo: Probable discharge to home, timing uncertain given hydronephrosis and newly diagnosed malignancy. Will likely need PT/OT evaluations after surgical interventions. Code Status: Full code as discussed with patient, surrogate decision maker is the patient's , Alex Siddiqui. Quality VTE Deep Vein Thrombosis/Pulmonary Embolism Present on Admission: No
[2020-02-17] MEDS: LACTATED RINGERS 1,000 ML 42 ML IV (16:27)
[2020-02-17] MEDS: CIPROFLOXACIN 400 MG/200 ML PIGGYBACK 200 MG IV (17:05)
--- NOTE | 2020-02-17 17:08 | PM.PREOP ---
Pre-operative Note COVID-19 COVID-19 status: Negative Interval Note History & Physical reviewed/Exam performed by Physician: Yes Changes to H&P: No
--- NOTE | 2020-02-17 17:35 | SUR.OPER ---
Lithotomy on padded OR bed, head on pillow, arms secured on padded arm boards at <90 degrees abduction. Legs secured in padded yellow fins stirrups.
[2020-02-17] MEDS: IOPAMIDOL 15 ML VIAL INJ (17:47)
[2020-02-17] MEDS: BELLADONNA/OPIUM SUPPOSITORIES 1 EACH PR (17:55)
--- NOTE | 2020-02-17 18:16 | PM.OP.1 ---
Operative Date/Time/Diagnoses Date of procedure: 02/17/20 Time of procedure: 18:16 Pre-op diagnosis: 1. Large right staghorn calculus. 2. Obstructing 6 x 12 mm left proximal ureteral calculus. 3. 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 4. Urinary tract infection, probably chronic. 5. Hematochezia secondary to high sigmoid neoplasm. Post-op diagnosis: same Procedure & Clinicians Procedure: 1. Cystoscopy and bilateral ureteral stent placement (7 [place] on left, 8 [place] on right). 2. Cystoscopy and left retrograde pyelogram. Same procedure as scheduled: No (Added left retrograde pyelogram for stent localization) Indications: 1. Large right staghorn calculus. 2. Obstructing 6 x 12 mm left proximal ureteral calculi. 3. Poorly or nonfunctioning left kidney. 4. Urinary tract infection, probably chronic. 5. Hematochezia secondary to high sigmoid neoplasm. Surgeon: Erika Muller Click Yes if Unassisted: Yes Anesthesia Type: General Operative Notes Findings: 1. Urethra within normal limits. 2. Bladder patchy erythema and amorphous debris. 3. Orifices in normal position bilaterally and normal in configuration. 4. Very high-grade obstructing left proximal ureteral calculus. Closure Type: not applicable Specimen(s): other (Urine-left intrarenal collecting system.) Applied: other (#7 [place] left universal stent. # 8 [place] right universal stent.) Estimated Blood Loss (mL): 0 Blood products transfused: none Tourniquet time (min): 0 Procedure in detail: The patient was positioned supine and administered general anesthesia. She was then repositioned in semi lithotomy and the lower abdomen, groin, and perineum were prepped and draped in sterile fashion. The 22 [place] panendoscope was then passed and lower urinary tract with findings as described above. A 0.35 ureteral guidewire was then passed and the scope into the left ureteral orifice and advanced proximally but could not be negotiated past the likely long-standing obstructing calculus. A 5 [place] pollock catheter was then advanced over the wire to a point where was abutting the juncture with the stone further attempts to advance the wire were likewise unsuccessful the wall. The guidewire was then backloaded onto the [place] catheter and now is 0.35 G all ID wire was advanced into the [place] catheter advanced proximally. With the persistence and great difficulty the GIN lied the wire was finally successful in passage proximal to the stone into the very markedly dilated left intrarenal collecting system. Now again with great effort and persistence the [place] catheter was advanced over the GIN lie [place] wire to a point where it its proximal tip lied proximal to the obstructing ureteral stone. This is the GIN lie [place] wire was then backloaded onto the [place] and now a more robust 0.35 sensor tip guidewire was advanced into the [place] catheter and a coil was then created on the proximal dilated collecting system [place] catheter was then backloaded off the guidewire now a 7 [place] by 22-32 universal length stent was then selected this was then advanced over the wire under direct and fluoroscopic guidance. Again with considerable difficulty and persistence it was successfully advanced more proximally above the stone allowing a proximal coil did develop in the markedly dilated collecting system. Should be noted while the [place] catheter was advanced into the proximal collecting system a urine specimen was obtained and sent to microbiology and the laboratory for culture and analysis. Once the stent on the left was appropriately positioned under direct fluoroscopic guidance the retrieval line was cut and removed and was positioned satisfactorily. Next attention was turned to the right side were a 0.35 sensor tip guidewire was advanced into the right collecting system under direct and fluoroscopic guidance. Over this an 8 [place] by 22-32 cm universal length stent was selected and this was advanced over the wire and positioned satisfactorily in the right collecting system under direct fluoroscopic guidance there was CIS the considerable difficulty finding space between the large stone burden in the gann of the renal pelvis on the right a full coil was not developed but it was securely in place due to compression and friction between the urea the renal pelvic wall and the and the surface of the calculus. The bladder was then drained completely at this point patient was repositioned supine was awakened, and transferred to [facility] in stable condition. Complications: none Post-operative Condition: stable Disposition: PACU
--- NOTE | 2020-02-17 19:00 | SUR.PHASEI ---
Patient denies pain but has sensation of having to void.
[2020-02-17] MEDS: CEFTRIAXONE 1 GM/50 ML FROZ.PIGGY IV (19:32)
[2020-02-17] MEDS: DORZOLAMIDE/TIMOLOL OPHTH 10 ML 1 DROPS EYE-BOTH (21:33)
[2020-02-17] MEDS: LATANOPROST 0.005% OPHTH 2.5 ML 1 DROPS EYE-BOTH (21:33)
[2020-02-17] MEDS: SODIUM CHLORIDE 0.9% 1,000 ML 84 ML IV (23:39)
[2020-02-18] VITALS (9 sets, daily range): BP systolic 146–167; BP diastolic 68–86; PULSE 60–72; RESP 16–18; TEMP 35.9–36.9; O2SAT 96–100
[2020-02-18 05:53] LABS: Add Manual Diff / Slide Review NO; Basophils Absolute Auto 0 /uL (0-100); Basophils Percent Auto 0.4 % (0-2); Eosinophils Absolute Auto 0 /uL (0-450); Hematocrit 32.4 % (36-46); Hemoglobin 10.8 g/dL (12.0-16.0); Lymphocytes Absolute Auto 700 /uL (1100-4500); Lymphocytes Percent Auto 8.1 % (25-40); Mean Corpuscular HGB Conc 33.4 % (30-36); Mean Corpuscular Hemoglobin 30.5 PG (26-34); Mean Corpuscular Volume 91.4 fL (80-100); Monocytes Absolute Auto 200 /uL (0-900); Monocytes Percent Auto 2.1 % (3-14); Neutrophils Absolute Auto 7300 /uL (1500-7000); Neutrophils Percent Auto 89.4 % (50-75); Platelet Count 351 X10^3/uL (150-400); Red Blood Cell Count 3.55 X10^6/uL (4.0-5.2); White Blood Cell Count 8.1 X10^3/uL (4.5-11.0)
[2020-02-18 05:59] LABS: Alanine Aminotransferase 10 IU/L (<35); Albumin 3.5 g/dL (3.5-5.0); Albumin Globulin Ratio 1.1 (1.0-2.8); Alkaline Phosphatase 59 U/L (38-126); Aspartate Aminotransferase 22 IU/L (14-36); BUN Creatinine Ratio 10.9 (6-22); Bilirubin Total 0.3 mg/dL (0.2-1.3); Bilirubin Unconjugated 0.1 mg/dL (0.0-1.1); Blood Urea Nitrogen 10 mg/dL (7-17); Calcium 9.6 mg/dL (8.4-10.2); Carbon Dioxide 23 mmol/L (22-32); Chloride 108 mmol/L (98-107); Estimated Glomerular Filt Rate 58.2 mL/min (>60); Globulin 3.2 g/dL (1.7-4.1); Glucose 155 mg/dL (80-110); HEMOLYSIS < 15 (0-50); Magnesium 1.5 mg/dL (1.6-2.3); Potassium 4.6 mmol/L (3.4-5.1); Sodium 138 mmol/L (137-145); Total Protein 6.7 g/dL (6.3-8.2)
[2020-02-18] MEDS: DORZOLAMIDE/TIMOLOL OPHTH 10 ML 1 DROPS EYE-BOTH ×2 (08:24→20:39)
[2020-02-18] MEDS: ASPIRIN EC 81 MG TABLET PO (08:24)
[2020-02-18] MEDS: MULTIVIT,CALC,MINS/IRON/FOLIC 1 TABLET 1 TAB PO (09:09)
[2020-02-18] MEDS: BISACODYL 5 MG TABLET 10 MG PO (11:16)
[2020-02-18] MEDS: SODIUM CHLORIDE 0.9% 1,000 ML 84 ML IV (11:22)
--- NOTE | 2020-02-18 12:07 | PC.NURSE ---
Addendum entered by Beverly Vázquez R.N. 02/18/20 13:54: Patient is drinking her mag citrate now, also given first round of erythromycin and bowel meds. She is comfortable and denies any pain or discomfort. Original Note: Patient is A&Ox3, but sometimes a little off, maybe forgetful or does not understand some things. She is steady on her feet to the bathroom. She denies any abdominal discomfort and bt are present x4. She will be going for surgery sometime tomorrow. She has been given dulcolaax pills , and she will be getting some mag citrate in about 30 minutes. Also started on some other po medication. Patient is on ivf and tolerating well. Resting in bed at this time, and she does want her door shut everytime you go in and out of her room.
[2020-02-18] MEDS: ERYTHROMYCIN BASE 250 MG TABLET 1000 MG PO (13:22)
[2020-02-18] MEDS: MAGNESIUM CITRATE 300 ML SOLUTION 150 ML PO (13:22)
[2020-02-18] MEDS: NEOMYCIN 500 MG TABLET 1000 MG PO ×3 (13:23→20:36)
--- NOTE | 2020-02-18 13:32 | DIET.PN ---
Dietary Progress Note RD called to check on pt as she does not like the Ensure Clear recommended to her to drink. Pt states its too sugary. Educated pt on importance of protein for healing, especially while on clear liquid diet. Pt willing to try ONS Rick bid which has 14g PRO each and minimal sugar. This provides equivalent PRO as 4 Ensure Clears each day. Will f/u c pt tomorrow (02/18) to check on ONS compliance.
--- NOTE | 2020-02-18 14:58 | P.PN_ITS ---
Subjective Subjective Date Patient Seen: 02/18/20 Time Patient Seen: 14:31 Interval history: The patient is post placement of ureteral stents. I talked to her about proceeding with colon resection. I discussed with her the fact that the biopsies did show cancer. Exam Vital Signs (past 8 hours): - 02/18/20 08:55 02/18/20 11:30 Temperature 96.6 F L 96.9 F L Pulse Rate 64 60 Respiratory Rate 16 16 Blood Pressure 167/73 H 152/81 H Pulse Oximetry 98 100 Oxygen Delivery Method Room Air Oxygen Flow Rate 0 Narrative Exam Narrative: Lungs are clear. Heart regular rate and rhythm without murmur gallop. Abdomen is soft nontender without mass Objective Labs Result Diagrams: 02/18/20 05:00 02/18/20 05:00 Labs: Laboratory Results - last 24 hr 02/18/20 02/18/20 05:00 05:00 WBC 8.1 RBC 3.55 L Hgb 10.8 L Hct 32.4 L MCV 91.4 MCH 30.5 MCHC 33.4 RDW 13.0 Plt Count 351 Neut % (Auto) 89.4 H D Lymph % (Auto) 8.1 L [place] % (Auto) 2.1 L Eos % (Auto) 0.0 L Baso % (Auto) 0.4 Neut # (Auto) 7300 H Lymph # (Auto) 700 L [place] # (Auto) 200 Eos # (Auto) 0 Baso # (Auto) 0 Sodium 138 Potassium 4.6 Chloride 108 H Carbon Dioxide 23 BUN 10 Creatinine 0.92 Estimated GFR 58.2 L BUN/Creatinine Ratio 10.9 Glucose 155 H Calcium 9.6 Magnesium 1.5 L Total Bilirubin 0.3 Conjugated Bilirubin 0.0 Unconjugated Bilirubin 0.1 AST 22 ALT 10 Alkaline Phosphatase 59 Total Protein 6.7 Albumin 3.5 Globulin 3.2 Albumin/Globulin Ratio 1.1 Assessment & Plan Assessment & Plan narrative: Patient with biopsy-proven cancer at about 15-20 cm from the anal verge. I talked with Radiation Oncology. This is a large tumor that is bleeding and it was their feeling it was probably a little high for radiation treatment and given her age in the renal status she may not be a good candidate for either chemo or radiation and therefore we will proceed to resection. I have discussed the operation with the patient including risks of bleeding, infection, hernia, anastomotic leak, cardiopulmonary problems postop. She appears to understand. Attempted to call her twice now but only been able to leave message. Will continue to try. Quality VTE Deep Vein Thrombosis/Pulmonary Embolism Present on Admission: No
[2020-02-18] MEDS: MAGNESIUM SULFATE 2 GM/50 ML PIGGYBACK IV (16:10)
--- NOTE | 2020-02-18 17:58 | P.PN_ITS ---
Subjective Subjective Date Patient Seen: 02/18/20 Interval history: Miranda Siddiqui is an 84-year-old female with a past medical history significant for glaucoma who presented to the ED for hematochezia andwas found to have a sigmoid mass on colonoscopy with mesenteric nodules and possible pulmonary nodules. She incidentally was found to have an obstructing left renal calculus and a non-ob structing right staghorn calculus. The patient is resting in bed comfortably. She is eager for her colon resection tomorrow. She endorses occasional intermittent low abdominal discomfort but otherwise has no complaints. She continues to deny urinary symptoms. She denies headache, chest pain, shortness of breath, abdominal pain, nausea, vomiting, fever, chills, dysuria, diarrhea constipation. She has had no return of hematochezia. She is voiding and eliminating without difficulty. She is up ambulating with assistance. Exam Vital Signs (past 8 hours): - 02/18/20 23:45 02/19/20 01:16 Temperature 97.2 F L Pulse Rate 70 Respiratory Rate 18 Blood Pressure 155/76 H Pulse Oximetry 98 98 Oxygen Delivery Method Room Air Oxygen Flow Rate 0 Narrative Exam Narrative: General: Elderly female lying in bed and in no acute distress, well-developed, well-nourished, appropriately interactive. HEENT: Normocephalic, atraumatic. External ears without defect. Pupils equal, round, and reactive to light. Anicteric sclerae, moist conjunctivae, and no lid lag. Oropharynx free of erythema and cobble stoning with moist mucosa. Neck: Supple with full range of motion. No lymphadenopathy or thyromegaly. Cardiovascular: Regular rate and rhythm without murmurs, rubs, or gallops appreciated Pulmonary: Clear to auscultation bilaterally without crackles, wheezes, or rhonchi. Normal respiratory effort with no use of accessory muscles. Abdomen: Soft, bowel sounds present, nontender, nondistended. No suprapubic, CVA or flank tenderness. No hepatosplenomegaly or masses appreciated. Extremities: No clubbing, cyanosis, or edema. Skin: Normal temperature, turgor, and texture; no rash, ulcers, or subcutaneous nodules appreciated. Neurological: Cranial nerves grossly intact. Psychiatric: Normal mood and affect. Alert and oriented to person, place, and time. Objective Labs Result Diagrams: 02/18/20 05:00 02/18/20 05:00 Labs: Laboratory Results - last 24 hr 02/18/20 02/18/20 05:00 05:00 WBC 8.1 RBC 3.55 L Hgb 10.8 L Hct 32.4 L MCV 91.4 MCH 30.5 MCHC 33.4 RDW 13.0 Plt Count 351 Neut % (Auto) 89.4 H D Lymph % (Auto) 8.1 L [place] % (Auto) 2.1 L Eos % (Auto) 0.0 L Baso % (Auto) 0.4 Neut # (Auto) 7300 H Lymph # (Auto) 700 L [place] # (Auto) 200 Eos # (Auto) 0 Baso # (Auto) 0 Sodium 138 Potassium 4.6 Chloride 108 H Carbon Dioxide 23 BUN 10 Creatinine 0.92 Estimated GFR 58.2 L BUN/Creatinine Ratio 10.9 Glucose 155 H Calcium 9.6 Magnesium 1.5 L Total Bilirubin 0.3 Conjugated Bilirubin 0.0 Unconjugated Bilirubin 0.1 AST 22 ALT 10 Alkaline Phosphatase 59 Total Protein 6.7 Albumin 3.5 Globulin 3.2 Albumin/Globulin Ratio 1.1 Assessment & Plan Assessment & Plan narrative: Miranda Siddiqui is an 84-year-old female with a past medical history significant for glaucoma who presented to the ED for hematochezia andwas found to have a sigmoid mass on colonoscopy with mesenteric nodules and possible pulmonary nodules. She incidentally was found to have an obstructing left renal calculus and a non- obstructing right staghorn calculus. 1. Acute episode of hematochezia, secondary to sigmoid colon cancer, present on admission. Active. -Patient presented after episode of hematochezia. Patient has never had a screening colonoscopy. -CT chest, abdomen, and pelvis with contrast demostrated a sigmoid mass that was previously seen on colonoscopy, some mesenteric soft tissue nodules but no adenopathy. She further had bilateral pulmonary nodular clusters and it is unclear if this represents metastatic disease. -CEA 0.8. -Consulted general surgery, Dr. Ambrocio, who performed colonoscopy on 02/15/20 found a sigmoid mass and multiple other polyps. 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 Continue clear liquid diet to avoid further bowel prep before planned sigmoid resection tomorrow. NPO at midnight. 2. Acute blood loss anemia, not present on admission. Improving. -Initial hemoglobin 13.3. Hemoglobin trended down to 10.1 due to acute blood loss as well as mild hemodilution. Hemoglobin is stable and trending up now 10.8 continue to monitor for overt signs of bleeding. Transfusion goal hemoglobin < 7.0 3. Incidental bilateral renal nephrolithiasis with high-grade left-sided obstructive uropathy, hydronephrosis and probable UTI, status post bilateral ureteral stent placement, present on admission. Resolved. -Patient incidentally found to obstructing left renal calculus, bilateral renal cysts, and a non-obstructing right staghorn calculus which was on staging CT abdomen and pelvis with contrast. -Urinalysis appeared grossly infected and patient was started on ceftriaxone 1 g IV daily. Urine culture has had no growth. Continued ceftriaxone 1 g daily x 4 d oses and received ciprofloxacin pre-operatively. Discontinued antibiotics as patient has received adequate treatment for UTI. -Consulted urology, Dr. Lozoya, who performed cystoscopy and bilateral ureteral stents. We appreciate his time and care of the patient. Patient will need to follow-up with Dr. Lozoya outpatient and as instructed. 4. Probable CALDERON on chronic kidney disease, present on admission. CALDERON resolving. -Initial creatinine 1.37. Previous baseline creatinine 1.2 in 2019. However, g iven right-sided not obstructing staghorn calculi, high-grade left side obstructive uropathy with hydronephrosis and probable UTI more likely that patient has an acute kidney injury on mild CKD. Creatinine improved now 0.92 and GFR 58. -Continued IV fluids until adequately hydrated then discontinued. -Avoid nephrotoxic agents. -Continue to monitor renal function daily. Code Status: Full code. Surrogate decision maker is the patient's , Alex Siddiqui. VTE prophylaxis: Bilateral SCDs Disposition: Patient will discharge in the next several days after sigmoid resection likely home with home health versus care home facility for rehabilitation. Quality VTE Deep Vein Thrombosis/Pulmonary Embolism Present on Admission: No
--- NOTE | 2020-02-18 19:07 | PC.NURSE ---
PATIENT REFUSED NEW IV, CURRENT IV REDRESSED,NO REDNESS/PAIN/INFILT.
[2020-02-18] MEDS: CEFTRIAXONE 1 GM/50 ML FROZ.PIGGY IV (19:30)
[2020-02-18] MEDS: LACTATED RINGERS 1,000 ML 100 ML IV (20:37)
[2020-02-18] MEDS: LATANOPROST 0.005% OPHTH 2.5 ML 1 DROPS EYE-BOTH (20:39)
[2020-02-19] VITALS (22 sets, daily range): BP systolic 91–151; BP diastolic 43–78; PULSE 60–79; RESP 9–18; TEMP 35.6–36.7; O2SAT 91–100; BMI 22.6
--- NOTE | 2020-02-19 | PATH_ITS ---
[facility] Accession Number: [id number] . 01 Material submitted: . PART A: colon - SIGMOID LOW ANTERIOR RESECTION PART B: colon - DISTAL MARGIN . 01 Clinical history: . BLOOD IN HER STOOL . 02 Diagnosis: A. Sigmoid Colon, Low Anterior Resection: Invasive adenocarcinoma; see cancer case summary. . B. Colon, Distal Margin, Resection: Segment of colon with serositis. No evidence of neoplasm. . . PART A: CAP CANCER CASE SUMMARY - COLON . PROCEDURE: Low anterior resection. TUMOR SITE: Sigmoid colon. TUMOR SIZE: 5.2 cm in greatest dimension. MACROSCOPIC TUMOR PERFORATION: Present. . 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 HISTOLOGIC GRADE: G3 - Poorly-differentiated. TUMOR EXTENSION: Tumor invades the visceral peritoneum (within mesentery). . MARGINS: All margins are uninvolved by carcinoma or dysplasia. Margins Examined: Proximal, distal, and radial. . . TREATMENT EFFECT: No known presurgical therapy. LYMPHOVASCULAR INVASION: Not identified. PERINEURAL INVASION: Not identified. TUMOR DEPOSITS: Present. Specify Number Of Deposits: 2. REGIONAL LYMPH NODES: Number of Lymph Nodes Involved: 0. Number of Lymph Nodes Examined: 18. . PATHOLOGIC STAGE CLASSIFICATION (pTNM, AJCC 8th ed.) Primary Tumor: pT4a. Regional Lymph Nodes: pN1c. . ANCILLARY STUDIES: Performed on previous biopsy specimen ([id number]), with intact nuclear expression of MLH1, PMS2, MSH2, and MSH6. [facility] 02/23/2020 1527 Local . 02 Electronically signed: . Rich Lemon MD, PhD, Pathologist NPI- [id number] . 01 Gross description: . (A) Received in formalin, labeled sigmoid low anterior resection, ink webb distal margin, is an opened segment of colon (length-22.7 cm, proximal diameter-1.8 x 1.2 cm, distal diameter-3.0 x 2.0 cm) with attached adipose tissue (up to 7.2 cm in depth). The resection margins are received stapled. Black ink indicates the distal colon. The mucosa is ennis with normal folds and contains a ennis, firm, circumferential mass (5.2 x 4.8 x 0.6 cm) located 0.5 cm from the serosa, 11.7 cm from the proximal, 6.8 cm from the distal, and 4.5 cm from the radial resection margins. The mass extends into and perforates through the adipose tissue. The perforation is 12.8 cm from the proximal and 8.5 cm from the distal resection margins. No other nodules, masses, or lesions are identified. Multiple possible lymph nodes (0.1-0.5 cm) are identified. After the initial lymph node search, the adipose tissue was processed overnight in grossing aid followed by a secondary lymph node search. The resection margins are inked blue, and the serosa is green. Section code: (A1) proximal resection margins, business center representative longitudinal section; (A2) distal resection margin, business center representative longitudinal section; (A3) radial resection margin, business center representative serial section; (A4-A6) business center representative serial sections submitted proximal to distal up to but not including the mass; (A7-A8, A9-A11, A12, A13) mass, business center representative serial sections submitted proximal to distal; (A14-A16) business center representative serial sections submitted proximal to distal from but not including the mass; (A17-A20) multiple intact lymph nodes; (A21-A22) multiple possible intact lymph nodes identified after processing and grossing aid. (B) Received in formalin, labeled distal margin, is an unoriented opened segment of colon (length-1.4 cm, diameter-3.0 cm) with a stapled resection margin. The mucosa is ennis and unremarkable. No nodules, masses, or lesions are identified. The resection margin is inked blue. [employer] Faculty Assistant longitudinal section submitted in cassette B1. ([id number]) /[facility] 02/21/2020 1401 Local . 02 Pathologist provided ICD-10: C18.7 . 02 CPT . 659688, [id number] Performed at: 01 [facility] [address] [id number] MD Cj Galvan MD Phone: [phone] Performed at: 02 [facility] [address] [address] [place] [id number] MD Pinky Romo MD Phone: [phone]
--- NOTE | 2020-02-19 01:08 | PC.NURSE ---
Dr. Ambrocio called earlier to asked pt's. bowel movement informed it was . But the pt. was in the BR when he called, order to admin. Fleets enema. After pt. done using the BR. noted she had a medium loose stool. Called Dr. Ambrocio back to informed him pt's. that pt. has med. loose BM. He ordered to cancel now order of enema & just administer the 0530 dose. Will implement order@ 0530. Pt. denies any pain & urine still has blood in it. Will Cont. POC & monitor.
[2020-02-19 05:08] LABS: Add Manual Diff / Slide Review NO; Basophils Absolute Auto 100 /uL (0-100); Basophils Percent Auto 0.8 % (0-2); Eosinophils Absolute Auto 100 /uL (0-450); Eosinophils Percent Auto 1.2 % (2-4); Hematocrit 30.5 % (36-46); Hemoglobin 10.6 g/dL (12.0-16.0); Lymphocytes Absolute Auto 2100 /uL (1100-4500); Lymphocytes Percent Auto 19.2 % (25-40); Mean Corpuscular HGB Conc 34.7 % (30-36); Mean Corpuscular Hemoglobin 31.2 PG (26-34); Mean Corpuscular Volume 89.9 fL (80-100); Monocytes Absolute Auto 800 /uL (0-900); Monocytes Percent Auto 7.6 % (3-14); Neutrophils Absolute Auto 7700 /uL (1500-7000); Neutrophils Percent Auto 71.2 % (50-75); Platelet Count 346 X10^3/uL (150-400); Red Blood Cell Count 3.39 X10^6/uL (4.0-5.2); Red Cell Distribution Width 13.1 % (11.6-14.8); White Blood Cell Count 10.8 X10^3/uL (4.5-11.0)
[2020-02-19 05:15] LABS: Alanine Aminotransferase 12 IU/L (<35); Albumin 3.2 g/dL (3.5-5.0); Albumin Globulin Ratio 1.1 (1.0-2.8); Alkaline Phosphatase 58 U/L (38-126); Aspartate Aminotransferase 28 IU/L (14-36); BUN Creatinine Ratio 10.4 (6-22); Bilirubin Total 0.2 mg/dL (0.2-1.3); Blood Urea Nitrogen 11 mg/dL (7-17); Calcium 9.4 mg/dL (8.4-10.2); Carbon Dioxide 21 mmol/L (22-32); Chloride 110 mmol/L (98-107); Estimated Glomerular Filt Rate 49.4 mL/min (>60); Globulin 2.9 g/dL (1.7-4.1); Glucose 91 mg/dL (80-110); HEMOLYSIS < 15 (0-50); Magnesium 2.5 mg/dL (1.6-2.3); Sodium 141 mmol/L (137-145); Total Protein 6.1 g/dL (6.3-8.2)
[2020-02-19] MEDS: FLEETS ENEMA 1 EACH PR (05:17)
[2020-02-19 05:31] LABS: Procalcitonin < 0.05 ng/mL (<0.5)
[2020-02-19] MEDS: LACTATED RINGERS 1,000 ML 100 ML IV ×5 (06:52→23:22)
--- NOTE | 2020-02-19 07:04 | PC.NURSE ---
Prior to enema administration she already 600 cc of greenish loose stool plus 1 unmeasured beginning of my shift. After enema she has another 200 cc of greenish stool. Total of 800 cc of liquid stool. Will cont. POC & monitor.
--- NOTE | 2020-02-19 07:54 | P.OP.PRE_ITS ---
Pre-operative Note COVID-19 COVID-19 status: Negative Interval Note History & Physical reviewed/Exam performed by Physician: Yes Changes to H&P: Yes H&P completed within 30 days and has changed as indicated here:: Patient has und ergone a bowel prep including po antibiotics. I spoke with her and her her and son. Risks of bleeding infection anastomotic leak, cardiopulmonary complications discussed. All questions answered. All agree to proceed.
[2020-02-19] MEDS: CIPROFLOXACIN 400 MG/200 ML PIGGYBACK 200 MG IV (08:04)
--- NOTE | 2020-02-19 08:04 | PC.NURSE ---
Patient picked up for surgery, consent signed and in chart. Patient up to void just prior to leaving, steady on feet, urine is blood tinged without clots noted. Patient denies pain or other complaints. Cipro and zosyn (see medication orders) sent with RN's at patient's cook pickled meat ordered as pre op and intra op. Patient has been NPO and reports multiple loose BM's overnight.
[2020-02-19] MEDS: PIPERACILLIN-TAZO 3.375 GM/50 ML FROZ.PIGGY IV ×3 (08:20→23:22)
[2020-02-19] MEDS: ACETAMINOPHEN IV 1,000 MG/100 ML VIAL 400 MG IV (08:45)
--- NOTE | 2020-02-19 09:24 | SUR.OPER ---
Lithotomy on padded OR bed. [place] Pad Positioner under torso. Head on pillow, arms padded and tucked at sides. Legs secured in padded yellow fins stirrups.
[2020-02-19] MEDS: BUPIVACAINE 0.5% (PF) VIAL 30 ML INJ (09:33)
--- NOTE | 2020-02-19 14:02 | SUR.PHASEI ---
Dressing CDI. 2 -way bah to gravity with red drainage. Patient somnolent, but arouses to voice. Answers simple yes/no questions appropriately. Denies pain/nausea. 02 via NC on prophylactically.
--- NOTE | 2020-02-19 15:11 | PC.NURSE ---
Patient received from PACU back to room 221. Sleepy arousable to voice, opens eyes. Denies pain. VSS. Carvajal in place draining blood tinged urine, no clots noted. Large bulky abdominal dressing in place, CDI. Denies pain. Call light placed within reach.
--- NOTE | 2020-02-19 15:22 | P.OP_ITS ---
Operative Date/Time/Diagnoses Date of procedure: 02/19/20 Time of procedure: 13:30 Pre-op diagnosis: Colon cancer with a near obstructing lesion and gastrointestinal bleeding Post-op diagnosis: same Procedure & Clinicians Procedure: Laparoscopic converted open low anterior resection Same procedure as scheduled: Yes Indications: Patient with a large tumor in her pelvis who may not be a good candidate for chemotherapy due to her advanced age in severe renal compromise. She is taken to the operating room for resection Surgeon: Clinton Ambrocio Professor Of Chemical Engineering: Sandoval Winston Anesthesia Type: General Operative Notes Findings: Large pelvic tumor just just above the peritoneal reflection. Closure Type: primary Specimen(s): other (Colon segment) Prosthetic devices, grafts, tissues, transplants, or devices: None Applied: catheter (Carvajal) Estimated Blood Loss (mL): 150 Blood products transfused: none Procedure in detail: Patient was placed supine on the operating table underwent general endotracheal anesthesia. She was placed in low lithotomy and a Carvajal catheter was placed. She was prepped and draped in the usual fashion. A small incision was made above the umbilicus and carried down under direct vision in the peritoneal cavity. Stay sutures of 0 Vicryl were placed the fascia. A 12 mm port was inserted and the abdomen was insufflated. Additional ports were placed in the right lower quadrant between the umbilicus and suprapubic area and in the left lower quadrant. These were all 5 mm ports. The attachments of the left colon to the ovary and sidewall were divided mobilizing the colon. A [place] drain was placed through a window in the mesentery to retract the colon superiorly. Dissection was carried down along the attachments to a point where I could no longer visualize well. A suture was placed in the abdominal wall to hold the uterus up but this only provided us with additional limited visualization. Therefore we decided to open. An incision was made beneath the umbilicus and carried down into the peritoneal cavity. This was made through 1 of the port sites. Exposure was gained. The ureter was identified on the left side. Point was chosen to divide the sigmoid colon and it was divided and the mesentery was dissected down to the presacral tissues. Using a Harmonic scalpel we divided the posterior and lateral attachments of the colon down to the peritoneal reflection and open the peritoneal reflection. We dissected down distal to the tumor and chose a point to transect distally. Contour stapling device was inserted and fired but with removal of the specimen and examination it appeared that the meri had not closed. There was leakage then of stool from the distal part of the colon into the pelvis. This was controlled. We sandy karel a suture line of 3 0 silk across the cut and of the rectum. We reinserted a stapling device distal to this and we were able to safely transect. This time the stapler appeared to function normally. We then created a and 2 and stapled anastomosis with the circular 29 mm diameter stapler. The donuts were complete but with insertion of air there was a very small leakage which was easily identi fied and sutured closed with interrupted silk sutures. We leak tested with air once again and there was no further bubbling. The pelvis was irrigated and suctioned free of fluid both before and after the anastomosis was created. The anastomosis did not seem to be on tension. A small nodule was felt in the left lobe of the liver near the edge. This corresponded to the cystic structure seen on the CT scan so it was not pursued. The stay sutures at the supraumbilical incision were tied. The infraumbilical incision fascia was closed with a running of 0 PDS and occasional interrupted 0 Vicryl sutures. The subcu was irrigated and the skin in all areas was closed with meri. There were no apparent complications. Patient appeared to tolerate the procedure well. Complications: none Post-operative Condition: stable Disposition: PACU
--- NOTE | 2020-02-19 18:10 | P.PN_ITS ---
Subjective Subjective Date Patient Seen: 02/19/20 Interval history: Miranda Siddiqui is an 84-year-old female with a past medical history significant for glaucoma who presented to the ED for hematochezia andwas found to have a sigmoid mass on colonoscopy with mesenteric nodules and possible pulmonary nodules. She incidentally was found to have an obstructing left renal calculus and a non-obs tructing right staghorn calculus. The patient is resting in a bed recovering postoperatively. She is mildly somnolent due to anesthetic. She denies significant pain. She has no complaints and denies headache, chest pain, shortness of breath, abdominal pain, nausea, vomiting, fever or chills. She is voiding via Carvajal catheter and has been eliminating without difficulty. Exam Vital Signs (past 8 hours): - 02/19/20 13:31 02/19/20 13:36 02/19/20 13:41 Temperature 98.0 F Pulse Rate 79 65 65 Respiratory Rate 9 L 9 L 9 L Blood Pressure 102/52 L 100/50 L 101/48 L Pulse Oximetry 93 96 95 02/19/20 13:46 02/19/20 13:51 02/19/20 13:57 Temperature 97.8 F Pulse Rate 65 67 72 Respiratory Rate 9 L 9 L 9 L Blood Pressure 91/45 L 92/43 L 102/48 L Pulse Oximetry 95 91 100 02/19/20 14:06 02/19/20 14:11 02/19/20 14:21 Temperature 97.7 F Pulse Rate 71 74 75 Respiratory Rate 9 L 9 L 12 Blood Pressure 110/57 L 117/43 L 119/61 Pulse Oximetry 99 98 97 02/19/20 14:26 02/19/20 14:50 02/19/20 15:20 Temperature 96.1 F L 96.4 F L Pulse Rate 66 66 67 Respiratory Rate 12 10 L 12 Blood Pressure 123/52 L 102/65 112/63 Pulse Oximetry 97 100 99 02/19/20 15:50 02/19/20 16:37 02/19/20 16:50 Temperature 96.4 F L 97.0 F L Pulse Rate 67 60 Respiratory Rate 12 12 Blood Pressure 107/60 111/62 Pulse Oximetry 99 96 100 02/19/20 17:50 Temperature 96.7 F L Pulse Rate 65 Respiratory Rate 14 Blood Pressure 119/61 Pulse Oximetry 99 Oxygen Delivery Method Room Air Oxygen Flow Rate 1.5 Narrative Exam Narrative: General: Elderly female lying in bed and in no acute distress, well-developed, well-nourished, slightly somnolent due to anesthetic but otherwise appropriately interactive. HEENT: Normocephalic, atraumatic. External ears without defect. Pupils equal, round, and reactive to light. Anicteric sclerae, moist conjunctivae, and no lid lag. Oropharynx free of erythema and cobble stoning with moist mucosa. Neck: Supple with full range of motion. No lymphadenopathy or thyromegaly. Cardiovascular: Regular rate and rhythm without murmurs, rubs, or gallops appreciated. Pulmonary: Clear to auscultation bilaterally without crackles, wheezes, or rhonchi. Normal respiratory effort with no use of accessory muscles. Abdomen: Soft, bowel sounds present, mild tenderness to palpation in midline at surgical site, nondistended. Large vertical dressing in place over mid abdomen without surrounding erythema or edema. No suprapubic, CVA or flank tenderness. No hepatosplenomegaly or masses appreciated. Extremities: No clubbing, cyanosis, or edema. Skin: Normal temperature, turgor, and texture; no rash, ulcers, or subcutaneous nodules appreciated. Neurological: Cranial nerves grossly intact. Psychiatric: Normal mood and affect. Slightly somnolent but otherwise alert and oriented to person, place, and time. Objective Labs Result Diagrams: 02/19/20 04:50 02/19/20 04:50 Labs: Laboratory Results - last 24 hr 02/19/20 02/19/20 02/19/20 04:50 04:50 04:50 WBC 10.8 RBC 3.39 L Hgb 10.6 L Hct 30.5 L MCV 89.9 MCH 31.2 MCHC 34.7 RDW 13.1 Plt Count 346 Neut % (Auto) 71.2 Lymph % (Auto) 19.[address] % (Auto) 7.6 Eos % (Auto) 1.2 L Baso % (Auto) 0.8 Neut # (Auto) 7700 H Lymph # (Auto) 2100 [place] # (Auto) 800 Eos # (Auto) 100 Baso # (Auto) 100 Sodium 141 Potassium 4.0 Chloride 110 H Carbon Dioxide 21 L BUN 11 Creatinine 1.06 H Estimated GFR 49.4 L BUN/Creatinine Ratio 10.4 Glucose 91 Calcium 9.4 Magnesium 2.5 H Total Bilirubin 0.2 AST 28 ALT 12 Alkaline Phosphatase 58 Total Protein 6.1 L Albumin 3.2 L Globulin 2.9 Albumin/Globulin Ratio 1.1 Procalcitonin < 0.05 Assessment & Plan Assessment & Plan narrative: Miranda Siddiqui is an 84-year-old female with a past medical history significant for glaucoma who presented to the ED for hematochezia andwas found to have a sigmoid mass on colonoscopy with mesenteric nodules and possible pulmonary nodules. She incidentally was found to have an obstructing left renal calculus and a non- obstructing right staghorn calculus. 1. Acute episode of hematochezia, secondary to sigmoid adenocarcinoma status post sigmoid resection, present on admission. Active. -Patient presented after episode of hematochezia. Patient has never had a screening colonoscopy. -CT chest, abdomen, and pelvis with contrast demostrated a sigmoid mass that was previously seen on colonoscopy, some mesenteric soft tissue nodules but no adenopathy. She further had bilateral pulmonary nodular clusters and it is unclear if this represents metastatic disease. -CEA 0.8. -Consulted general surgery, Dr. Ambrocio, who performed colonoscopy on 02/15/20 found to have a sigmoid mass and multiple other polyps. 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 Patient now status post sigmoid resection. 2. Acute blood loss anemia, not present on admission. Improving. -Initial hemoglobin 13.3. Hemoglobin trended down to 10.1 due to acute blood loss, as well as, mild hemodilution. Hemoglobin is stable at 10.6. Continue to monitor for overt signs of bleeding. Transfusion goal hemoglobin < 7.0 -Continue to monitor H&H daily. 3. Incidental bilateral renal nephrolithiasis with high-grade left-sided obstructive uropathy, hydronephrosis and probable UTI, status post bilateral ureteral stent placement, present on admission. Resolved. -Patient incidentally found to obstructing left renal calculus, bilateral renal cysts, and a non-obstructing right staghorn calculus which was on staging CT abdomen and pelvis with contrast. -Urinalysis appeared grossly infected and patient was started on ceftriaxone 1 g IV daily. Urine culture has had no growth. Continued ceftriaxone 1 g daily x 4 doses and received ciprofloxacin pre-operatively. Discontinued antibiotics as patient has received adequate treatment for UTI. -Consulted urology, Dr. Lozoya, who performed cystoscopy and bilateral ureteral stents. We appreciate his time and care of the patient. Patient will need to follow-up with Dr. Lozoya as an outpatient and as instructed. 4. Probable CALDERON on chronic kidney disease, present on admission. CALDERON resolved. -Initial creatinine 1.37. Previous baseline creatinine 1.2 in 2019. However, given right-sided not obstructing staghorn calculi, high-grade left side obstructive uropathy with hydronephrosis and probable UTI more likely that patient has an acute kidney injury on mild CKD. Creatinine improved now 0.92 and GFR 58. -Continued IV fluids until adequately hydrated then discontinued. -Avoid nephrotoxic agents. -Continue to monitor renal function daily. Code Status: Full code. Surrogate decision maker is the patient's , Alex Siddiqui. VTE prophylaxis: Enoxaparin, SCDs Disposition: Patient will discharge in the next several days once recovered from sigmoid resection likely home with home health versus care home facility for rehabilitation. Quality VTE Deep Vein Thrombosis/Pulmonary Embolism Present on Admission: No
--- NOTE | 2020-02-19 21:24 | PC.NURSE ---
PATIENT ALLOWED ME TO START NEW IV IN R FA. ETHAN.VERY WELL
[2020-02-20] VITALS (12 sets, daily range): BP systolic 117–142; BP diastolic 51–84; PULSE 63–76; RESP 16–18; TEMP 36.2–37.1; O2SAT 94–100
[2020-02-20 05:00] LABS: Add Manual Diff / Slide Review NO; Basophils Absolute Auto 0 /uL (0-100); Basophils Percent Auto 0.1 % (0-2); Eosinophils Absolute Auto 0 /uL (0-450); Hematocrit 28.4 % (36-46); Hemoglobin 9.5 g/dL (12.0-16.0); Lymphocytes Absolute Auto 600 /uL (1100-4500); Lymphocytes Percent Auto 4.9 % (25-40); Mean Corpuscular HGB Conc 33.4 % (30-36); Mean Corpuscular Hemoglobin 30.5 PG (26-34); Mean Corpuscular Volume 91.1 fL (80-100); Monocytes Absolute Auto 1000 /uL (0-900); Monocytes Percent Auto 8.2 % (3-14); Neutrophils Absolute Auto 10600 /uL (1500-7000); Neutrophils Percent Auto 86.8 % (50-75); Platelet Count 309 X10^3/uL (150-400); Red Blood Cell Count 3.11 X10^6/uL (4.0-5.2); Red Cell Distribution Width 13.1 % (11.6-14.8); White Blood Cell Count 12.2 X10^3/uL (4.5-11.0)
[2020-02-20 05:09] LABS: BUN Creatinine Ratio 10.7 (6-22); Blood Urea Nitrogen 12 mg/dL (7-17); Calcium 9.1 mg/dL (8.4-10.2); Carbon Dioxide 23 mmol/L (22-32); Chloride 107 mmol/L (98-107); Estimated Glomerular Filt Rate 46.3 mL/min (>60); Glucose 124 mg/dL (80-110); HEMOLYSIS < 15 (0-50); Magnesium 1.9 mg/dL (1.6-2.3); Potassium 5.1 mmol/L (3.4-5.1); Sodium 137 mmol/L (137-145)
[2020-02-20] MEDS: PIPERACILLIN-TAZO 3.375 GM/50 ML FROZ.PIGGY IV ×2 (09:02→16:14)
[2020-02-20] MEDS: ENOXAPARIN 40 MG/0.4 ML SYRINGE SUBCUT (09:02)
[2020-02-20] MEDS: DORZOLAMIDE/TIMOLOL OPHTH 10 ML 1 DROPS EYE-BOTH ×2 (09:03→20:39)
--- NOTE | 2020-02-20 09:29 | P.PN_ITS ---
Subjective Subjective Date Patient Seen: 02/20/20 Time Patient Seen: 07:21 Interval history: The patient is postop day 1 from a low anterior resection. She has pain with movement. All in the abdomen. No cough. Exam Vital Signs (past 8 hours): - 02/20/20 04:00 02/20/20 04:38 02/20/20 08:00 Temperature 98.0 F 98.8 F Pulse Rate 66 76 Respiratory Rate 16 16 Blood Pressure 126/60 117/57 L Pulse Oximetry 100 100 96 Oxygen Delivery Method Room Air Oxygen Flow Rate 0 Narrative Exam Narrative: Excellent respiratory effort. Lungs clear. Heart regular rate and rhythm without murmur gallop. Abdomen is flat soft. Dressing is intact and was not removed. Abdomen is appropriately tender. Objective Labs Result Diagrams: 02/20/20 04:50 02/20/20 04:50 Labs: Laboratory Results - last 24 hr 02/20/20 02/20/20 04:50 04:50 WBC 12.2 H RBC 3.11 L Hgb 9.5 L Hct 28.4 L MCV 91.1 MCH 30.5 MCHC 33.4 RDW 13.1 Plt Count 309 Neut % (Auto) 86.8 H Lymph % (Auto) 4.9 L [place] % (Auto) 8.2 Eos % (Auto) 0.0 L Baso % (Auto) 0.1 Neut # (Auto) 26475 H Lymph # (Auto) 600 L [place] # (Auto) 1000 H Eos # (Auto) 0 Baso # (Auto) 0 Sodium 137 Potassium 5.1 Chloride 107 Carbon Dioxide 23 BUN 12 Creatinine 1.12 H Estimated GFR 46.3 L BUN/Creatinine Ratio 10.7 Glucose 124 H Calcium 9.1 Magnesium 1.9 Assessment & Plan Post-op Postoperative Procedures: Procedures Operation Date: 02/15/20 09:00 Actual Procedures Side Surgeon p Colonoscopy with Polypectomy/INKING/BIOPSIES Not Applicable Clinton Ambrocio MD Operation Date: 02/17/20 16:30 Actual Procedures Side Surgeon p Cystoscopy w/Placement of bilateral Ureteral Stents Erika Muller MD Operation Date: 02/19/20 07:45 Actual Procedures Side Surgeon p Laparoscopically Assisted Colon Resection Low Anterior converted to Open Clinton Ambrocio MD Postoperative day: 1 Postoperative status: doing well Postoperative plan narrative: Started on sips of liquid. DVT prophylaxis ordered now that bleeding segment of bowel has been removed. Will continue antibiotics due to spillage intraoperatively from stapler failure. Quality VTE Deep Vein Thrombosis/Pulmonary Embolism Present on Admission: No
[2020-02-20] MEDS: MORPHINE 2 MG/ML INJ IV ×3 (11:27→20:45)
--- NOTE | 2020-02-20 11:59 | CM.DPC ---
Addendum entered by Shanita Chris LPN 02/20/20 13:18: Met now with pt and introduced self and role. Pt confirms her adamant choice of home at d/c and is not willing to consider any other option at this time. She does agree to HH if needed and referral is given now by phone/Magalie and fax to [facility] (the only HH agency that goes out to the [facility]. Pt says she does not think her son will be staying on to help when she gets home but my and our rover tender can help us. P: DCP team will be continuing to follow closely. Original Note: DCP: continued: case received and discussed in Team Rounds. EMR reviewed and the complexity of pt's medical situation is noted. Pt was admitted on 02/12 and with a change of admission status noted: OBS to INPT status: as of 02/14/20. Hospitalist team is primary with urology and general surgeons consulting. Surgeries: Cystoscopy with placement of bilateral ureteral stents : 02/16: Dr. Muller Laparoscopic converted to open low anterior resection: 02/18: Dr. Ambrocio. Dr. Ambrocio saw pt this morning: noted she is post op day one: sips of liquid started. IV antibiotics are continued due to spillage intraoperatively from stapler failure. Dr. Brasher has given the ok for PT and OT to see pt today. Received a call from pt's PCP: on [facility]: Dr. Augustina Heck. She requested update on pt and including discharge planning ideas and options. She states she is very involved with this family and the [place] community and will help in whatever way she can. Agreed to fax her clinical information: done now to fax: [phone] She provides her clinic #: [phone] cell: [phone]. She states pt's [place], [place], is currently staying with his father, Alex at the family home. She is recommending to the family that, if pt does d/c to home setting when she leaves the hospital, they begin to [place]. Discussed home health services with her and the limitations and benefits of same. Plan to talk with pt and her family and consider putting a referral into [facility] as appropriate.
--- NOTE | 2020-02-20 13:32 | PT.IIE ---
Current Diagnoses Gastrointestinal hemorrhage, unspecified (02/14/20) Surgery Performed Operation Date: 02/15/20 09:00 Actual Procedures p Colonoscopy with Polypectomy/INKING/BIOPSIES(Not Applicable) - Clinton Ambrocio MD Operation Date: 02/17/20 16:30 Actual Procedures p Cystoscopy w/Placement of bilateral Ureteral Stents - Erika Muller MD Operation Date: 02/19/20 07:45 Actual Procedures p Laparoscopically Assisted Colon Resection Low Anterior converted to Open - Clinton Ambrocio MD Surgical History (Last Reviewed 02/17/20 @ 08:04 by Erika Muller MD) Hx of tonsillectomy (Acute) Physical Therapy Inpatient Evaluation/Re-Eval M1 PT/OT-IP Prior Functional Status Start: 02/20/20 14:37 Freq: NEEDED Status: Active Protocol: Document 02/20/20 13:32 AB (Rec: 02/20/20 14:54 AB [id number]) Medical Review Prior Functional Status Medical History Reviewed Yes Communication able to make needs known Mobility and Gait pt stated that she is independent with all mobilities and ambulation without AD Social History Household Members spouse Living Arrangements House Number of Floors (Floors) Two Floors Number of Stairs To Enter/Railing? 8 steps with R rail descending +landing+ 6 steps with bilateral rails down to entrance to the house has 3 steps L rail down to bedroom/living room level Home Environment High Toilet,Walk in Shower Home Equipment Grab Bars In Shower Employment Status Retired Additional Social History Comment pt has an adjustable bed M2 PT-IP Current Condition Start: 02/20/20 14:37 Freq: NEEDED Status: Active Protocol: Document 02/20/20 13:32 AB (Rec: 02/20/20 14:54 AB [id number]) Physical Therapy Current Condition Current Condition Evaluation Date 02/20/20 Treatment Diagnosis GI bleed/pelvic tumor s/p laporoscopy and resection; difficulty in walking Onset Date 02/14/20 Precautions Abdominal Surgery Precautions Log Roll,Lifting Restrictions, Gait Belt above Incisional Area M3 PT-IP Subjective Start: 02/20/20 14:37 Freq: NEEDED Status: Active Protocol: Document 02/20/20 13:32 AB (Rec: 02/20/20 14:54 AB [id number]) Subjective Physical Therapy Visit Type Type Initial Evaluation Visit Start Time 13:32 Visit Stop Time 14:09 Total Visit Minutes 37 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 of 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 0 Physical Therapy Visit Comments Patient Comments pt agreeable to do PT Therapy Pain Assessment Pain When Pain Assessed At Rest Pain Present Pain Present Pain Reported Location Lower Abdomen Intensity 7 Scale Used Numeric (1 - 10) Pain Management Techniques Distraction,Re-positioning, Timing of Activity with Medications M4 PT-IP Mobility and Gait Start: 02/20/20 14:37 Freq: NEEDED Status: Active Protocol: Document 02/20/20 13:32 AB (Rec: 02/20/20 14:54 AB [id number]) PT-Bed Mobility Assessment Supine to Sit Supine to Sit Minimal Assistance,1 Person Assistance PT-Transfer Assessment Sit to and From Stand Sit to and from Stand Contact Guard Assistance,1 Person Assistance,Use of Upper Extremities Equipment Transfer Assistive Device Gait Belt,Front Wheeled Walker Orthotic/Prosthetic Devices or Brace: No Transfers Transfer Destination Toilet Transfer Technique ambulated using FWW Transfer Ability Level of Assist Contact Guard Assistance Comments Mobility Comments educated pt on abdominal precautions/log roll bed mobility. completed supine to sit min A and cues. pt requested to use the toilet. completed sit to stand CGA and ambulated to the toilet using FWW ~ 10 ft CGA. cued for safety and use of FWW. pt completed sit to stand SBA using grab bar and ambulated towards the sink CGA. pt was able to maintain standing using FWW for support CGA while doing handwashing/ grooming. pt ambulated in room ~ 25 ft CGA using FWW. pt agreed to sit up on chair. positioned on chair. left pt with OT. Gait Assessment Gait Gait Assistance Required: Contact Guard Assist Distance (Feet) 25 Able to Maintain Weight Bearing Status Yes During Gait Assistive Devices Assistive Device Gait Belt,Front Wheeled Walker Orthotic/Prosthetic Devices or Brace: No Gait Deviations General Gait Pattern Antalgic Factors Limiting Gait Function Factors Limiting Gait Function Decreased Activity Tolerance, Decreased Strength,Pain,Poor Balance,Poor Safety Awareness Comments Gait Comments pt presents with unsteady gait with slight LOB but with recovery requiring CGA. 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 Gross Range of Motion Lower Extremity ROM Assessment Within Functional Limits Strength Lower Extremity Strength Assessment Within Functional Limits Muscle Tone Muscle Tone WNL Yes M6 PT-IP Treatment Start: 02/20/20 14:37 Freq: NEEDED Status: Active Protocol: Document 02/20/20 13:32 AB (Rec: 02/20/20 14:54 AB [id number]) Physical Therapy Treatment Education Education Provided Precautions,Safety M7 PT-IP Assessment and Plan Start: 02/20/20 14:37 Freq: NEEDED Status: Active Protocol: Document 02/20/20 13:32 AB (Rec: 02/20/20 14:54 AB [id number]) PT Summary Assessment and Plan Potential Rehabilitation Potential Good Status of Condition at Evaluation Evolving Summary Impairments Pain,ROM,Strength,Balance, Cognition,Bed Mobility, Transfers,Gait,Activity Tolerance Assessment Summary pt requiring CGA with mobility . presents with unsteady gait and requires FWW for support and safety. pt plans to go home and spouse to assist her. will continue to assess progress. pt will benefit from homehealth PT. Goals Bed Mobility Goal Independent Transfer Goal Independent,Front Wheeled Walker Gait Goal Independent,Front Wheel Walker Gait Distance 150 Other Goals to improve ambulation without AD/least restrictive AD mod I 200 ft to be able to do stairs 14 steps L rail ascending SBA Days to Meet Goals 10 Frequency of Treatment Frequency Of Treatment Once a Day Treatment Plan Physical Therapy Treatment Plan Bed Mobility Training,Transfer Training,Gait Training, Therapeutic Exercise,Balance Retraining,Post Op Education, Discharge Planning,Hot or Cold Pack,Neuromuscular Re-ed, Coordination Retraining,Manual Therapy Other Recommendations and Next Treatment ambulation, bed mobility Focus Recommendations To Nursing Amount of Assist Needed 1 Person Assist Discharge Recommendations PT Discharge Recommendations Home with Assistance,Home Health Equipment Needed for Home Before FWW if not safe without AD Discharge Transportation Needs at Discharge Private Vehicle
--- NOTE | 2020-02-20 13:56 | P.PN_ITS ---
Subjective Subjective Date Patient Seen: 02/20/20 Interval history: Miranda Siddiqui is an 84-year-old female with a past medical history significant for glaucoma who presented to the ED for hematochezia andwas found to have a sigmoid mass on colonoscopy with mesenteric nodules and possible pulmonary nodules. She incidentally was found to have an obstructing left renal calculus and a non-ob structing right staghorn calculus. The patient is resting in a bed comfortably. She is getting ready to work with physical and occupational therapy. She reports abdominal pain as anticipated. She is postoperative day 1 and has not passed flatus or had a BM. Surgery has started her on a clear liquid diet which she reports she does not joint. She has no complaints and denies headache, chest pain, shortness of breath, nausea, vomiting, fever or chills. She is voiding via Carvajal catheter. She is up with assistance. Exam Vital Signs (past 8 hours): - 02/20/20 13:00 02/20/20 14:00 02/20/20 15:29 Temperature 98.3 F 97.1 F L Pulse Rate 63 68 Respiratory Rate 17 18 Blood Pressure 123/57 L 124/51 L Pulse Oximetry 95 95 98 Oxygen Delivery Method Room Air Oxygen Flow Rate 0 Narrative Exam Narrative: General: Elderly female lying in bed and in no acute distress, well-developed, well-nourished, appropriately interactive. HEENT: Normocephalic, atraumatic. External ears without defect. Pupils equal, round, and reactive to light. Anicteric sclerae, moist conjunctivae, and no lid lag. Oropharynx free of erythema and cobble stoning with moist mucosa. Neck: Supple with full range of motion. No lymphadenopathy or thyromegaly. Cardiovascular: Regular rate and rhythm without murmurs, rubs, or gallops appreciated Pulmonary: Clear to auscultation bilaterally without crackles, wheezes, or r honchi. Normal respiratory effort with no use of accessory muscles. Abdomen: Soft, bowel sounds hypoactive but present, mild tenderness to palpation throughout abdomen especially over surgical site, nondistended. Extremities: No clubbing, cyanosis, or edema. Skin: Normal temperature, turgor, and texture; no rash, ulcers, or subcutaneous nodules appreciated. Neurological: Cranial nerves grossly intact. Psychiatric: Normal mood and affect. Alert and oriented to person, place, and time. Objective Labs Result Diagrams: 02/20/20 04:50 02/20/20 04:50 Labs: Laboratory Results - last 24 hr 02/20/20 02/20/20 04:50 04:50 WBC 12.2 H RBC 3.11 L Hgb 9.5 L Hct 28.4 L MCV 91.1 MCH 30.5 MCHC 33.4 RDW 13.1 Plt Count 309 Neut % (Auto) 86.8 H Lymph % (Auto) 4.9 L [place] % (Auto) 8.2 Eos % (Auto) 0.0 L Baso % (Auto) 0.1 Neut # (Auto) 08369 H Lymph # (Auto) 600 L [place] # (Auto) 1000 H Eos # (Auto) 0 Baso # (Auto) 0 Sodium 137 Potassium 5.1 Chloride 107 Carbon Dioxide 23 BUN 12 Creatinine 1.12 H Estimated GFR 46.3 L BUN/Creatinine Ratio 10.7 Glucose 124 H Calcium 9.1 Magnesium 1.9 Assessment & Plan Assessment & Plan narrative: Miranda Siddiqui is an 84-year-old female with a past medical history significant for glaucoma who presented to the ED for hematochezia andwas found to have a sigmoid mass on colonoscopy with mesenteric nodules and possible pulmonary nodules. She incidentally was found to have an obstructing left renal calculus and a non- obstructing right staghorn calculus. 1. Acute episode of hematochezia, secondary to sigmoid adenocarcinoma status post sigmoid resection, present on admission. Active. -Patient presented after episode of hematochezia. Patient has never had a screening colonoscopy. -CT chest, abdomen, and pelvis with contrast demostrated a sigmoid mass that was previously seen on colonoscopy, some mesenteric soft tissue nodules but no adenopathy. She further had bilateral pulmonary nodular clusters and it is unclear if this represents metastatic disease. -CEA 0.8. -Consulted general surgery, Dr. Ambrocio, who performed colonoscopy on 02/15/20 found to have a large nearly obstructive sigmoid mass and multiple other polyps. 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 Patient now status post sigmoid resection which was a contaminated procedure due to stay per malfunction and general surgery has started Zosyn 3.375 g every 8 hours. Continue postoperative, DVT prophylaxis and pain management per General surgery. 2. Acute blood loss anemia, not present on admission. Improving. -Initial hemoglobin 13.3. Hemoglobin trended down due to acute blood loss, as well as, hemodilution. Hemoglobin is stable. Continue to monitor for overt signs of bleeding. Transfusion goal hemoglobin < 7.0 -Continue to monitor H&H daily. 3. Incidental bilateral renal nephrolithiasis with high-grade left-sided obstructive uropathy, hydronephrosis and probable UTI, status post bilateral ure teral stent placement, present on admission. Resolved. -Patient incidentally found to obstructing left renal calculus, bilateral renal cysts, and a non-obstructing right staghorn calculus which was on staging CT abdomen and pelvis with contrast. -Urinalysis appeared grossly infected and patient was started on ceftriaxone 1 g IV daily. Urine culture has had no growth. Continued ceftriaxone 1 g daily x 4 doses and received ciprofloxacin pre-operatively. Discontinued antibiotics as patient has received adequate treatment for UTI. -Consulted urology, Dr. Lozoya, who performed cystoscopy and bilateral ureteral stents. We appreciate his time and care of the patient. Patient will need to follow-up with Dr. Lozoya as an outpatient and as instructed. 4. Probable CALDERON on chronic kidney disease, present on admission. CALDERON resolved. -Initial creatinine 1.37. Previous baseline creatinine 1.2 in 2019. However, given right-sided not obstructing staghorn calculi, high-grade left side obstructive uropathy with hydronephrosis and probable UTI more likely that patient has an acute kidney injury on mild CKD. Creatinine improved now 0.92 and GFR 58. -Continued IV fluids until adequately hydrated then discontinued. -Avoid nephrotoxic agents. -Continue to monitor renal function daily. Code Status: Full code. Surrogate decision maker is the patient's , Alex Siddiqui. VTE prophylaxis: Enoxaparin, SCDs Disposition: Patient will discharge in the next several days once recovered from sigmoid resection likely home with home health versus detention facility for rehabilitation. Quality VTE Deep Vein Thrombosis/Pulmonary Embolism Present on Admission: No
--- NOTE | 2020-02-20 14:14 | OT.IP.EVAL ---
Current Diagnoses Gastrointestinal hemorrhage, unspecified (02/14/20) Surgery Performed Operation Date: 02/15/20 09:00 Actual Procedures p Colonoscopy with Polypectomy/INKING/BIOPSIES(Not Applicable) - Clinton Ambrocio MD Operation Date: 02/17/20 16:30 Actual Procedures p Cystoscopy w/Placement of bilateral Ureteral Stents - Eirka Muller MD Operation Date: 02/19/20 07:45 Actual Procedures p Laparoscopically Assisted Colon Resection Low Anterior converted to Open - Clinton Ambrocio MD Surgical History (Last Reviewed 02/17/20 @ 08:04 by Erika Muller MD) Hx of tonsillectomy (Acute) Occupational Therapy Inpatient Evaluation/Re-Eval M1 PT/OT-IP Prior Functional Status Start: 02/20/20 14:27 Freq: NEEDED Status: Active Protocol: Document 02/20/20 14:28 CGR (Rec: 02/20/20 14:59 CGR [id number]) Medical Review Prior Functional Status Medical History Reviewed Yes Communication Pt is an effective verbal communicator. Mobility and Gait Pt was IND in all mobility prior to admit. Activities of Daily Living and IADL's Pt was IND in all ADLs prior to admit. Social History Household Members spouse Living Arrangements House Number of Floors (Floors) Two Floors Number of Stairs To Enter/Railing? from driveway: 6 stairs down then landing and 8 more stairs down to front door. Once inside the home pt has 3 steps down to main level where her bedroom, bathroom, kitchen, and living room are located. Pt has a hand rail on the L assending for all stairs. 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 8 steps with R rail descending +landing+ 6 steps with bilateral rails down to entrance to the house has 3 steps L rail down to bedroom/living room level Home Environment High Toilet,Walk in Shower Home Equipment Grab Bars In Shower Employment Status Retired Additional Social History Comment pt has an adjustable bed M2 OT-IP Current Condition Start: 02/20/20 14:27 Freq: Status: Active Protocol: Document 02/20/20 14:28 CGR (Rec: 02/20/20 14:59 CGR [email or web address]) Occupational Therapy Current Condition Current Condition Evaluation Date 02/20/20 Treatment Diagnosis GI bleed Diagnosis Onset Date 02/14/20 Post Operative Precautions Abdominal Surgery Precautions Log Roll,Lifting Restrictions, Gait Belt above Incisional Area M3 OT- IP Subjective and Pain Start: 02/20/20 14:27 Freq: Status: Active Protocol: Document 02/20/20 14:28 CGR (Rec: 02/20/20 14:59 CGR [id number]) OT- Subjective Occupational Therapy Visit Type Type Initial Evaluation Visit Start Time 13:32 Visit Stop Time 14:14 Total Visit Minutes 42 Notes Co-treat with P.T. OT Pain Assessment Pain When Pain Assessed At Rest Pain Present Pain Present Pain Reported Location Lower Abdomen Intensity 7 Scale Used Numeric (1 - 10) Management Techniques Re-positioning,Timing of Activity with Medications M4 OT- IP ADL's Start: 02/20/20 14:27 Freq: Status: Active Protocol: Document 02/20/20 14:28 CGR (Rec: 02/20/20 14:59 CGR [email or web address]) OT [id number] General Evaluation Self-Feeding Ability Standby Assistance Areas Needing Assistance Drinking From Cup/Glass Comments OT Self-Feeding Comments Pt slow and needing to correct her coordination for cup to mouth but performed without assist. OT ADL-Grooming General Evaluation Grooming Ability Standby Assistance Areas Needing Assistance Retrieving/Set-up of Grooming Items,Combing/Brushing Hair, Face Washing Comments OT Grooming Comments standing at sink OT ADL-Oral Care Comments Oral Care Comments not performed OT ADL-Dressing Comments OT Dressing Comments not performed OT ADL-Toileting General Evaluation Toileting Ability Standby Assistance Devices Toileting Assistive Devices Grab Bars Comments OT Toileting Comments Pt attempted to have BM but unable to void. OT ADL-Bathing Comments OT Bathing Comments not performed M5 OT- IP IADL's Start: 02/20/20 14:27 Freq: Status: Active Protocol: Document 02/20/20 14:28 CGR (Rec: 02/20/20 14:59 CGR [email or web address]) OT-Instrumental Activities of Daily Living Deficits IADL Deficits Identified No Deficits Home Safety Awareness Awareness of Need for Assistance at Home Good Awareness Ability to Problem Solve Emergency Able to Problem Solve Situations Medication Management Medication Management No Deficits Identified Money Management Money Management No Deficits Identified Meal Preparation Meal Preparation No Deficits Identified Hotel Staff Member Hotel Staff Member No Deficits Identified Driving Driving Comments 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 OT- IP Functional Cognition Start: 02/20/20 14:27 Freq: Status: Active Protocol: Document 02/20/20 14:28 CGR (Rec: 02/20/20 14:59 CGR [email or web address]) Cognitive Factors Limiting Selfcare Function Cognitive Ability Level of Alertness Alert Patient Orientation Name,Age,Birthday,Month,Date, Year,Day of Week,Place, Situation Attention Span Ability Capable of Focused Attention, Capable of Sustained Attention Ability to Follow Commands Able to Follow One Step Commands with Increased Time, Able to Follow One Step Commands with Repetition Memory Description No Deficits Noted Safety Awareness Decreased Recall of Precautions,Decreased Ability to Apply Precautions Problem Solving Ability No deficits Noted Cognitive Comments Cognitive Assessment Comments Pt likely displaying cognitive deficits as a result of medications. Pt may be appropriate for a formal cog assessment if she does not clear in a day or two. OT- Vision and Hearing OT- Hearing Assessment OT- Hearing Assessment WFL OT- Vision Assessment Vision History Glaucoma Visual Attentiveness WFL Occular Pursuits WFL Visual Convergence WFL Vision Assessment Comments Pt is blind in the left eye. M7 OT- IP Mobility and Balance Start: 02/20/20 14:27 Freq: Status: Active Protocol: Document 02/20/20 14:28 CGR (Rec: 02/20/20 14:59 CGR [email or web address]) OT- Bed Mobility Assessment Rolling Type of Rolling Log Rolling,Roll to Right Level of Assistance Contact Guard Assistance Supine to Sit Supine to Sit Assist Minimal Assistance Scooting Scooting to Edge of Bed Contact Guard Assistance OT-Transfer Assessment Sit to and From Stand Sit to and from Stand Contact Guard Assistance Transfers Transfer Ability Contact Guard Assistance Technique Transfer Destination Bed,Chair,Toilet Transfer Technique Stand Step Pivot Devices Transfer Assistive Devices Gait Belt,Front Wheeled Walker Comments Mobility Comments Pt mobilized around the room with CGA and walker. Pt needed VC fro proper use of the walker as she does not use one at home. Pt with unsteady gait even with walker. OT- Balance Assessment Sitting Balance and Reactions Static Sitting Balance Ability Good Dynamic Sitting Balance Ability Fair M8 OT- IP Objective Assessments Start: 02/20/20 14:27 Freq: Status: Active Protocol: Document 02/20/20 14:28 CGR (Rec: 02/20/20 14:59 CGR [email or web address]) OT Gross Range of Motion Upper Extremity Range of Motion Assessment Within Functional Limits OT Strength Upper Extremity Strength Assessment Within Functional Limits OT- Coordination Assessment Upper Extremity Finger to Nose Test Within Functional Limits Finger Tapping Test Within Functional Limits Comments Coordination Comments Noted delayed correction of coordination with hand to mouth bringing cup to mouth. OT-Muscle Tone Assessment Muscle Tone WNL Yes OT Sensation Assessment Edema Edema Absent M9 OT- IP Assessment and Plan Start: 02/20/20 14:27 Freq: Status: Active Protocol: Document 02/20/20 14:28 CGR (Rec: 02/20/20 14:59 CGR [email or web address]) OT Summary Assessment and Plan Potential Rehabilitation Potential Excellent Analytic Complexity at Evaluation Low Summary OT Impairments Pain,Balance,Coordination, Functional Cognition, Functional Mobility,Grooming, Dressing,Toileting,Bathing, Toilet Transfers,Shower Transfers,Activity Tolerance Progress Towards Goals Progressing Toward Goals Assessment Summary Pt presents as a low complexity evaluation s/p GI bleed and lap robyn. Pt will benefit from continued OT services to address cognition if it does not improve with time and ADLs. Pt is likley to progress to be safe for discharge home with some concern for the significant number of stairs to enter the home. Recommendation at this time is to plan for home with home health and assist. Goals Self-Feeding Goal Independent Grooming Goal Independent Dressing Goal Independent Toileting Goal Independent Bathing Goal Independent Toilet Transfer Goal Independent Shower Transfer Goal Independent Days to Meet Goals 5 Frequency of Treatment Frequency Of Treatment Once a Day Treatment Plan OT Treatment Plan ADL Training,Functional Cognition Training,Functional Mobility,Patient/Family Education,Discharge Planning Other Treatment Recommendations and Next ADLs standing, cog assessment. Treatment Focus Discharge Recommendations OT Discharge Recommendations Home with Assistance,Home Health Home Equipment Needs shower chair, FWW Transportation Needs at Discharge Private Vehicle
--- NOTE | 2020-02-20 14:17 | DIET.PN ---
Dietary Progress Note 84y F s/p sigmoid colon resection found to have adenocarcinoma following a clear liquid diet as tolerated. Pt previously discussed c RD her dislike for Ensure Clear as it is too sweet. RD switched pt to Rick bid to support PRO needs (providing 50% EER for PRO) which is continued. Consider changing to Ensure Surgery bid once advanced to full liquid diet.
[2020-02-20] MEDS: ACETAMINOPHEN 325 MG TABLET 650 MG PO (14:31)
[2020-02-20 19:09] LABS: Procalcitonin 0.61 ng/mL (<0.5)
[2020-02-20] MEDS: LATANOPROST 0.005% OPHTH 2.5 ML 1 DROPS EYE-BOTH (20:39)
[2020-02-20] MEDS: LACTATED RINGERS 1,000 ML 100 ML IV (21:38)
[2020-02-21] VITALS (11 sets, daily range): BP systolic 129–162; BP diastolic 59–85; PULSE 74–94; RESP 14–18; TEMP 36.1–36.8; O2SAT 92–95
[2020-02-21] MEDS: PIPERACILLIN-TAZO 3.375 GM/50 ML FROZ.PIGGY IV ×4 (00:01→23:42)
[2020-02-21] MEDS: MORPHINE 2 MG/ML INJ IV ×4 (00:02→20:45)
[2020-02-21 05:25] LABS: Add Manual Diff / Slide Review NO; Basophils Absolute Auto 0 /uL (0-100); Basophils Percent Auto 0.4 % (0-2); Eosinophils Absolute Auto 300 /uL (0-450); Eosinophils Percent Auto 3.5 % (2-4); Hematocrit 28.1 % (36-46); Hemoglobin 9.5 g/dL (12.0-16.0); Lymphocytes Absolute Auto 1200 /uL (1100-4500); Lymphocytes Percent Auto 12.9 % (25-40); Mean Corpuscular Hemoglobin 30.9 PG (26-34); Mean Corpuscular Volume 90.9 fL (80-100); Monocytes Absolute Auto 700 /uL (0-900); Monocytes Percent Auto 8.2 % (3-14); Neutrophils Absolute Auto 6800 /uL (1500-7000); Platelet Count 317 X10^3/uL (150-400); Red Blood Cell Count 3.09 X10^6/uL (4.0-5.2); Red Cell Distribution Width 13.5 % (11.6-14.8)
[2020-02-21 05:35] LABS: BUN Creatinine Ratio 11.4 (6-22); Blood Urea Nitrogen 12 mg/dL (7-17); Carbon Dioxide 26 mmol/L (22-32); Chloride 107 mmol/L (98-107); Estimated Glomerular Filt Rate 49.9 mL/min (>60); Glucose 90 mg/dL (80-110); HEMOLYSIS < 15 (0-50); Magnesium 1.9 mg/dL (1.6-2.3); Sodium 140 mmol/L (137-145)
[2020-02-21 05:42] LABS: Potassium 3.2 mmol/L (3.4-5.1)
[2020-02-21 05:53] LABS: Procalcitonin 0.47 ng/mL (<0.5)
[2020-02-21] MEDS: POTASSIUM CHLORIDE 40 MEQ in SODIUM CHLORIDE 0.9% 500 ML 130 ML IV (06:11)
--- NOTE | 2020-02-21 06:21 | PC.NURSE ---
Pt is AxOx4, complaints of 8/10 abdominal pain relieved with Morphine. No bowel tones heard to b/l upper quadrants. Hypoactive bowel tones to lower quadrants . Not passing get. No BM; No nausea LR@100mL/hr Carvajal is patent with pink tinged urine. B/L SCDs on overnight
[2020-02-21] MEDS: MAGNESIUM SULFATE 2 GM/50 ML PIGGYBACK IV (06:39)
[2020-02-21] MEDS: POTASSIUM CHLORIDE 20 MEQ TAB 40 MEQ PO (06:39)
[2020-02-21] MEDS: DORZOLAMIDE/TIMOLOL OPHTH 10 ML 1 DROPS EYE-BOTH ×2 (09:31→20:51)
[2020-02-21] MEDS: ENOXAPARIN 40 MG/0.4 ML SYRINGE SUBCUT (09:32)
--- NOTE | 2020-02-21 09:48 | PC.NURSE ---
Addendum entered by Laly Diaz R.N. 02/21/20 14:50: Pt's son Alex called and brief update given. Alex requested to come visit pt tomorrow. Explained to visitors at this time unless for plan of care with staff members. Alex agreeable at this time. Original Note: Day Shift- Pt A&OX4, able to make needs known using call light. OOB to BR with 1PA. Tolerated fair. Encouraged OOB ambulation at least 3 times today with assistance, DIETITIAN RESEARCH aware. Instructed on incentive spirometer use and encouraged deep breathing and coughing exercises with abd splinting. Also enc ankle pump exercises. ABD bloated, tender and aching across abd to mid and lower bad. ABd bulky dressing CDI. BSX4 hypoactive to active, no flatus yet. Denies nausea. Tolerating small amounts of clear liquid diet. PIV to left FA 18G, asymptomatic, flushes well, possibly inserted on 4/9IVF, infusing for Magnesium Infusion this AM then Antibiotic. Right FA PIV has KCL 40 K-rider,then KCL continuous infusion will follow.
[2020-02-21] MEDS: KCL 40 MEQ IN NS 1,000 ML 100 MEQ IV ×2 (11:02→21:44)
--- NOTE | 2020-02-21 11:04 | P.PN_ITS ---
Subjective Subjective Date Patient Seen: 02/21/20 Time Patient Seen: 11:04 Interval history: No acute events. No bowel movement or flatus. Exam Vital Signs (past 8 hours): - 02/21/20 05:10 02/21/20 06:00 02/21/20 08:47 Temperature 97.0 F L 97.8 F Pulse Rate 80 79 Respiratory Rate 18 16 Blood Pressure 138/71 129/59 L Pulse Oximetry 92 93 94 Oxygen Delivery Method Room Air Oxygen Flow Rate 0 Narrative Exam Narrative: Gen-Adult female no acute distress alert and oriented Chest-non labored resp Abdomen-soft incision CDI with meri, appropriately tender to palpation Objective Labs Result Diagrams: 02/21/20 05:04 02/21/20 05:04 Labs: Laboratory Results - last 24 hr 02/13/20 02/20/20 02/21/20 18:35 04:50 05:04 WBC 9.0 RBC 3.09 L Hgb 9.5 L Hct 28.1 L MCV 90.9 MCH 30.9 MCHC 34.0 RDW 13.5 Plt Count 317 Neut % (Auto) 75.0 Lymph % (Auto) 12.9 L [place] % (Auto) 8.2 Eos % (Auto) 3.5 Baso % (Auto) 0.4 Neut # (Auto) 6800 Lymph # (Auto) 1200 [place] # (Auto) 700 Eos # (Auto) 300 Baso # (Auto) 0 Sodium Potassium Chloride Carbon Dioxide BUN Creatinine Estimated GFR BUN/Creatinine Ratio Glucose Calcium Magnesium Procalcitonin 0.61 H Crossmatch See Detail 02/21/20 02/21/20 05:04 05:04 WBC RBC Hgb Hct MCV MCH MCHC RDW Plt Count Neut % (Auto) Lymph % (Auto) [place] % (Auto) Eos % (Auto) Baso % (Auto) Neut # (Auto) Lymph # (Auto) [place] # (Auto) Eos # (Auto) Baso # (Auto) Sodium 140 Potassium 3.2 L D Chloride 107 Carbon Dioxide 26 BUN 12 Creatinine 1.05 H Estimated GFR 49.9 L BUN/Creatinine Ratio 11.4 Glucose 90 Calcium 9.0 Magnesium 1.9 Procalcitonin 0.47 Crossmatch Assessment & Plan Post-op Postoperative Procedures: Procedures Operation Date: 02/15/20 09:00 Actual Procedures Side Surgeon p Colonoscopy with Polypectomy/INKING/BIOPSIES Not Applicable Clinton mAbrocio MD Operation Date: 02/17/20 16:30 Actual Procedures Side Surgeon p Cystoscopy w/Placement of bilateral Ureteral Stents Erika Muller MD Operation Date: 02/19/20 07:45 Actual Procedures Side Surgeon p Laparoscopically Assisted Colon Resection Low Anterior converted to Open Clinton Ambrocio MD Postoperative status narrative: 84F POD 2 SP LAR for rectal cancer doing well. Awaiting return of bowel function. -Clear liquid diet -Continue Zosyn for intra operative spillage -SCDs Lovenox for VTE prophylaxis -OOB Ambulate PT Quality VTE Deep Vein Thrombosis/Pulmonary Embolism Present on Admission: No
--- NOTE | 2020-02-21 12:11 | PT.IPTN ---
Current Diagnoses Gastrointestinal hemorrhage, unspecified (02/14/20) Surgery Performed Operation Date: 02/15/20 09:00 Actual Procedures p Colonoscopy with Polypectomy/INKING/BIOPSIES(Not Applicable) - Clinotn Ambrocio MD Operation Date: 02/17/20 16:30 Actual Procedures p Cystoscopy w/Placement of bilateral Ureteral Stents - Erika Muller MD Operation Date: 02/19/20 07:45 Actual Procedures p Laparoscopically Assisted Colon Resection Low Anterior converted to Open - Clinton Ambrocio MD Physical Therapy Treatment Note M2 PT-IP Current Condition Start: 02/20/20 14:37 Freq: NEEDED Status: Active Protocol: Document 02/20/20 13:32 AB (Rec: 02/20/20 14:54 AB [id number]) Physical Therapy Current Condition Current Condition Evaluation Date 02/20/20 Treatment Diagnosis GI bleed/pelvic tumor s/p laporoscopy and resection; difficulty in walking Onset Date 02/14/20 Precautions Abdominal Surgery Precautions Log Roll,Lifting Restrictions, Gait Belt above Incisional Area M3 PT-IP Subjective Start: 02/20/20 14:37 Freq: NEEDED Status: Active Protocol: Document 02/21/20 11:45 SP (Rec: 02/21/20 15:24 SP [id number]) Subjective Physical Therapy Visit Type Type Treatment Note Visit Start Time 11:45 Visit Stop Time 12:11 Total Visit Minutes 26 Number of ASH HANDLER Visits 1 Physical Therapy Visit Comments Patient Comments pt agreeable to working with therapy on 2nd attempt. Therapy Pain Assessment Pain When Pain Assessed During Mobility Pain Present Pain Present Pain Reported Location Lower Abdomen Intensity 4 Scale Used Numeric (1 - 10) Pain Management Techniques Apply Cold,Re-positioning, Timing of Activity with Medications M4 PT-IP Mobility and Gait Start: 02/20/20 14:37 Freq: NEEDED Status: Active Protocol: Document 02/21/20 11:45 SP (Rec: 02/21/20 15:24 SP [id number]) PT-Bed Mobility Assessment Rolling Type of Rolling Log Rolling,Roll to Right Level of Assist Contact Guard Assistance Supine to Sit Supine to Sit Minimal Assistance,1 Person Assistance,Head of Bed Elevated,Bedrails Sit to Supine Sit to Supine Minimal Assistance Scooting Scooting to Edge of Bed Contact Guard Assistance Scooting Up and Down in Bed Contact Guard Assistance PT-Transfer Assessment Sit to and From Stand Sit to and from Stand Contact Guard Assistance,1 Person Assistance,Use of Upper Extremities Equipment Transfer Assistive Device Gait Belt,Front Wheeled Walker Orthotic/Prosthetic Devices or Brace: No Transfers Transfer Destination Bed Transfer Technique ambulated using FWW Transfer Ability Level of Assist Contact Guard Assistance Comments Mobility Comments Pt declined 1st attempt this am stating was up in chair earlier and havent' been in bed long, wanting to rest but could return late am. Pt willing to work with therapy when returned before lunch. ASH HANDLER discussed post treatment with associate of science in nursing patient did not get out of bed into chair today but was encouraged by nursing staff and declined . Pt complete R log roll using bed rails with HOB elevated 23 deg and ableto get BLE to EOB herself. Pt required 10% A for trunk righting then able to scoot to EOB herself CGA. Sit to stand CGA with cuing for safety proper hand placement push up from bed and reaching prior to sitting durign treatment using FWW. Pt was ableto ambulate around end of bed to door and back CGA with therapist managing IV pole, good obstacle mgt with FWW. Pt decreased activitiy tolerance and request to return to bed, very tired I can't do anymore. Cued patient to sit toward HOB and proper positioning with FWW lateral stepping CGA. Sitting to R sidelying Min A for BLE into bed then cued for proper log roll to L onto back with maintaining spinal alignment to decrease abdominal over pressure with good demonstration. Pt was able to self scoot down in bed herself with BUE on bed rails and BLE WB in bed. Pt reported abdominal pain did increase to 8/10 during bed mobility at end. ASH HANDLER reapplied cold pack for assistance with pain. Bed alarm armed and all needs in place, provided warm blanket per patient request. All needs and calll light in reach when left. Gait Assessment Gait Gait Assistance Required: Contact Guard Assist Distance (Feet) 30 Able to Maintain Weight Bearing Status Yes During Gait Assistive Devices Assistive Device Gait Belt,Front Wheeled Walker Orthotic/Prosthetic Devices or Brace: No Gait Deviations General Gait Pattern Antalgic Factors Limiting Gait Function Factors Limiting Gait Function Decreased Activity Tolerance, Decreased Strength,Pain,Poor Balance,Poor Safety Awareness Comments Gait Comments See mobility comments, stable with FWW durign room distances . Stair Climbing Assessment Comments Stair Climbing Comments not assessed secondary to pain and decreased activity tolerance, will need to complete 14 total stair mgt B and R HR prior to DC. 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 Gross Range of Motion Lower Extremity ROM Assessment Within Functional Limits Strength Lower Extremity Strength Assessment Within Functional Limits Muscle Tone Muscle Tone WNL Yes M6 PT-IP Treatment Start: 02/20/20 14:37 Freq: NEEDED Status: Active Protocol: Document 02/21/20 11:45 SP (Rec: 02/21/20 15:24 SP [id number]) Physical Therapy Treatment Exercises Exercises Ankle Pumps,Gluteal Sets,Quad Sets,Heel Slides,Seated Knee Flexion/Extension Education Education Provided Precautions,Safety M7 PT-IP Assessment and Plan Start: 02/20/20 14:37 Freq: NEEDED Status: Active Protocol: Document 02/21/20 11:45 SP (Rec: 02/21/20 15:24 SP [id number]) PT Summary Assessment and Plan Potential Rehabilitation Potential Good Status of Condition at Evaluation Evolving Summary Impairments Pain,ROM,Strength,Balance, Cognition,Bed Mobility, Transfers,Gait,Activity Tolerance Assessment Summary pt requiring min A during bed mobiltiy, CGA with transfers and gait requiring use of FWW and safety cuing. pt plans to go home and spouse to assist her. will continue to assess progress, requiring stair mgt and recommend caregiver training prior to DC . pt will benefit from homehealth PT. Goals Bed Mobility Goal Independent Transfer Goal Independent,Front Wheeled Walker Gait Goal Independent,Front Wheel Walker Gait Distance 150 Other Goals to improve ambulation without AD/least restrictive AD mod I 200 ft to be able to do stairs 14 steps L rail ascending SBA Days to Meet Goals 10 Frequency of Treatment Frequency Of Treatment Once a Day Treatment Plan Physical Therapy Treatment Plan Bed Mobility Training,Transfer Training,Gait Training, Therapeutic Exercise,Balance Retraining,Post Op Education, Discharge Planning,Hot or Cold Pack,Neuromuscular Re-ed, Coordination Retraining,Manual Therapy Other Recommendations and Next Treatment ambulation, bed mobility, Focus stair mgt, caregiver training prior to DC. Recommendations To Nursing Amount of Assist Needed 1 Person Assist Discharge Recommendations PT Discharge Recommendations Home with Assistance,Home Health Equipment Needed for Home Before FWW if not safe without AD Discharge Transportation Needs at Discharge Private Vehicle
--- NOTE | 2020-02-21 16:49 | P.PN_ITS ---
Subjective Subjective Date Patient Seen: 02/21/20 Interval history: Miranda Siddiqui is an 84-year-old female with a past medical history significant for glaucoma who presented to the ED for hematochezia andwas found to have a sigmoid mass on colonoscopy with mesenteric nodules and possible pulmonary nodules. She incidentally was found to have an obstructing left renal calculus and a non-obs tructing right staghorn calculus. The patient is resting in a bed and appears comfortable. She just received a bed bath from nursing staff. The patient reports she feels okay. She reports abdominal pain especially with movement but her pain is controlled with pain medication. The patient denied flatus initially. However, she then stated she feels she may be able to have a bowel movement and asked again regarding flatus and reports she is unsure. She has no complaints and denies headache, chest pain, shortness of breath, nausea, vomiting, fever or chills. Patient has been on clear liquid diet. She is voiding via Carvajal catheter. She is up with assistance and encourage patient to ambulate at least 3 times today. Exam Vital Signs (past 8 hours): - 02/21/20 11:05 02/21/20 15:36 Temperature 98.3 F 97.6 F Pulse Rate 74 90 Respiratory Rate 15 16 Blood Pressure 136/73 156/85 H Pulse Oximetry 93 92 Oxygen Delivery Method Room Air Oxygen Flow Rate 0 Narrative Exam Narrative: General: Elderly thin female lying in bed and in no acute distress, appears older than stated age in chronically ill, well-developed, appropriately interactive. HEENT: Normocephalic, atraumatic. External ears without defect. Pupils equal, round, and reactive to light. Anicteric sclerae, moist conjunctivae, and no lid lag. Oropharynx free of erythema and cobble stoning with moist mucosa. Neck: Supple with full range of motion. No lymphadenopathy or thyromegaly. Cardiovascular: Regular rate and rhythm without murmurs, rubs, or gallops appreciated Pulmonary: Clear to auscultation bilaterally without crackles, wheezes, or rhonchi. Normal respiratory effort with no use of accessory muscles. Abdomen: Soft, bowel sounds present, mild tenderness to palpation throughout abdomen especially over surgical site, nondistended. Extremities: No clubbing, cyanosis, or edema. Skin: Normal temperature, turgor, and texture; no rash, ulcers, or subcutaneous nodules appreciated. Neurological: Cranial nerves grossly intact. Psychiatric: Normal mood and affect. Alert and oriented to person, place, and time. Objective Labs Result Diagrams: 02/21/20 05:04 02/21/20 05:04 Labs: Laboratory Results - last 24 hr 02/13/20 02/20/20 02/21/20 18:35 04:50 05:04 WBC 9.0 RBC 3.09 L Hgb 9.5 L Hct 28.1 L MCV 90.9 MCH 30.9 MCHC 34.0 RDW 13.5 Plt Count 317 Neut % (Auto) 75.0 Lymph % (Auto) 12.9 L [place] % (Auto) 8.2 Eos % (Auto) 3.5 Baso % (Auto) 0.4 Neut # (Auto) 6800 Lymph # (Auto) 1200 [place] # (Auto) 700 Eos # (Auto) 300 Baso # (Auto) 0 Sodium Potassium Chloride Carbon Dioxide BUN Creatinine Estimated GFR BUN/Creatinine Ratio Glucose Calcium Magnesium Procalcitonin 0.61 H Crossmatch See Detail 02/21/20 02/21/20 05:04 05:04 WBC RBC Hgb Hct MCV MCH MCHC RDW Plt Count Neut % (Auto) Lymph % (Auto) [place] % (Auto) Eos % (Auto) Baso % (Auto) Neut # (Auto) Lymph # (Auto) [place] # (Auto) Eos # (Auto) Baso # (Auto) Sodium 140 Potassium 3.2 L D Chloride 107 Carbon Dioxide 26 BUN 12 Creatinine 1.05 H Estimated GFR 49.9 L BUN/Creatinine Ratio 11.4 Glucose 90 Calcium 9.0 Magnesium 1.9 Procalcitonin 0.47 Crossmatch Assessment & Plan Assessment & Plan narrative: Miranda Siddiqui is an 84-year-old female with a past medical history significant for glaucoma who presented to the ED for hematochezia andwas found to have a sigmoid mass on colonoscopy with mesenteric nodules and possible pulmonary nodules. She incidentally was found to have an obstructing left renal calculus and a non- obstructing right staghorn calculus. 1. Acute episode of hematochezia, secondary to sigmoid adenocarcinoma, status post sigmoid resection, present on admission. Active. -Patient presented after episode of hematochezia. Patient has never had a screening colonoscopy. -CT chest, abdomen, and pelvis with contrast demostrated a sigmoid mass that was previously seen on colonoscopy, some mesenteric soft tissue nodules but no adenopathy. She further had bilateral pulmonary nodular clusters and it is unclear if this represents metastatic disease. -CEA 0.8. -Consulted general surgery, Dr. Ambrocio, who performed colonoscopy on 02/15/20 found to have a large nearly obstructive sigmoid mass and multiple other polyps. 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 Patient now st atus post sigmoid resection which was a contaminated procedure due to stapler malfunction and general surgery has started Zosyn 3.375 g every 8 hours. Continue postoperative, DVT prophylaxis and pain management per General surgery. Continue clear liquid diet per surgery. Continue to ambulate at least 3 times daily. -Recommend outpatient referral to oncology per PCP. 2. Acute blood loss anemia, not present on admission. Improving. -Initial hemoglobin 13.3. Hemoglobin trended down due to acute blood loss, as well as, hemodilution. Hemoglobin is stable. Continue to monitor for overt signs of bleeding. Transfusion goal hemoglobin < 7.0. -Continue to monitor H&H daily. 3. Incidental bilateral renal nephrolithiasis with high-grade left-sided obstructive uropathy, hydronephrosis and probable UTI, status post bilateral ureteral stent placement, present on admission. Resolved. -Patient incidentally found to obstructing left renal calculus, bilateral renal cysts, and a non-obstructing right staghorn calculus which was on staging CT abdomen and pelvis with contrast. -Urinalysis appeared grossly infected and patient was started on ceftriaxone 1 g IV daily. Urine culture has had no growth. Continued ceftriaxone 1 g daily x 4 doses and received ciprofloxacin pre-operatively. Discontinued antibiotics as patient has received adequate treatment for UTI. -Consulted urology, Dr. Lozoya, who performed cystoscopy and bilateral ureteral stents. We appreciate his time and care of the patient. Patient will need to follow-up with Dr. Lozoya as an outpatient and as instructed. 4. Probable CALDERON on chronic kidney disease, present on admission. CALDERON resolved. -Initial creatinine 1.37. Previous baseline creatinine 1.2 in 2019. However, given right-sided not obstructing staghorn calculi, high-grade left side obstructive uropathy with hydronephrosis and probable UTI more likely that patie nt has an acute kidney injury on mild CKD. Creatinine improved now 0.92 and GFR 58. -Continued IV fluids until adequately hydrated then discontinued. -Avoid nephrotoxic agents. -Continue to monitor renal function daily. 5. Acute hypokalemia, not present on admission. Active. -Potassium level 3.2. Received potassium chloride 40 mEq IV x1. -Continue to monitor potassium level daily. Code Status: Full code. Surrogate decision maker is the patient's , Alex Siddiqui. VTE prophylaxis: Enoxaparin, SCDs Disposition: Patient will discharge in the next several days once recovered from sigmoid resection likely home with home health versus correction facility for rehabilitation. Quality VTE Deep Vein Thrombosis/Pulmonary Embolism Present on Admission: No
[2020-02-21] MEDS: LATANOPROST 0.005% OPHTH 2.5 ML 1 DROPS EYE-BOTH (20:48)
[2020-02-22] VITALS (9 sets, daily range): BP systolic 136–157; BP diastolic 73–88; PULSE 75–88; RESP 16; TEMP 36.2–36.7; O2SAT 92–99
[2020-02-22 05:48] LABS: Add Manual Diff / Slide Review NO; Basophils Absolute Auto 100 /uL (0-100); Basophils Percent Auto 0.7 % (0-2); Eosinophils Absolute Auto 700 /uL (0-450); Eosinophils Percent Auto 8.3 % (2-4); Hemoglobin 9.2 g/dL (12.0-16.0); Lymphocytes Absolute Auto 800 /uL (1100-4500); Lymphocytes Percent Auto 9.5 % (25-40); Mean Corpuscular HGB Conc 34.1 % (30-36); Mean Corpuscular Volume 90.8 fL (80-100); Monocytes Absolute Auto 600 /uL (0-900); Monocytes Percent Auto 7.6 % (3-14); Neutrophils Absolute Auto 6200 /uL (1500-7000); Neutrophils Percent Auto 73.9 % (50-75); Platelet Count 303 X10^3/uL (150-400); Red Blood Cell Count 2.97 X10^6/uL (4.0-5.2); Red Cell Distribution Width 13.3 % (11.6-14.8); White Blood Cell Count 8.5 X10^3/uL (4.5-11.0)
[2020-02-22 06:03] LABS: BUN Creatinine Ratio 15.2 (6-22); Blood Urea Nitrogen 14 mg/dL (7-17); Calcium 8.8 mg/dL (8.4-10.2); Carbon Dioxide 23 mmol/L (22-32); Chloride 110 mmol/L (98-107); Estimated Glomerular Filt Rate 58.2 mL/min (>60); Glucose 85 mg/dL (80-110); HEMOLYSIS < 15 (0-50); Sodium 139 mmol/L (137-145)
--- NOTE | 2020-02-22 08:23 | P.PN_ITS ---
Subjective Subjective Date Patient Seen: 02/22/20 Time Patient Seen: 08:23 Interval history: No acute events over night. Pt passing gas and stool. Denies nausea. Pain well controlled. Exam Vital Signs (past 8 hours): - 02/22/20 02:00 02/22/20 04:53 02/22/20 05:56 Temperature 97.2 F L Pulse Rate 88 Respiratory Rate 16 Blood Pressure 152/77 H Pulse Oximetry 92 94 94 Oxygen Delivery Method Room Air Oxygen Flow Rate 0 Narrative Exam Narrative: Gen-Adult female no acute distress alert, comfortable, appropriate responses to questions Chest-non labored resp; non tachypneic; breathing comfortably on room air CV: normal rate; no LE edema Abdomen-soft incision CDI with meri, appropriately tender to palpation; non distended : bah in place with clear urine; no longer blood tinged Objective Labs Result Diagrams: 02/22/20 05:03 02/22/20 05:03 Labs: Laboratory Results - last 24 hr 02/22/20 02/22/20 05:03 05:03 WBC 8.5 RBC 2.97 L Hgb 9.2 L Hct 27.0 L MCV 90.8 MCH 31.0 MCHC 34.1 RDW 13.3 Plt Count 303 Neut % (Auto) 73.9 Lymph % (Auto) 9.5 L [place] % (Auto) 7.6 Eos % (Auto) 8.3 H Baso % (Auto) 0.7 Neut # (Auto) 6200 Lymph # (Auto) 800 L [place] # (Auto) 600 Eos # (Auto) 700 H Baso # (Auto) 100 Sodium 139 Potassium 4.0 Chloride 110 H Carbon Dioxide 23 BUN 14 Creatinine 0.92 Estimated GFR 58.2 L BUN/Creatinine Ratio 15.2 Glucose 85 Calcium 8.8 Magnesium 2.0 Assessment & Plan Assessment & Plan narrative: 84 yo woman POD# 3 s/p LAR for rectal cancer. Has had return of bowel function. She has stents in for renal stones, but her urine has cleared up and is no longer bloody. I contacted Dr. Muller who is in agreement with removing her bah today. Plan: Advance diet as tolerated Remove bah Ambulate as tolerated Dispo planning as pt tolerates the above Continue IV zosyn for spillage in OR and UTI COVID-19 COVID-19 status: Negative Time Spent With Patient Time with patient: 25 - 35 minutes Quality VTE Deep Vein Thrombosis/Pulmonary Embolism Present on Admission: No
[2020-02-22] MEDS: KCL 40 MEQ IN NS 1,000 ML 100 MEQ IV (08:35)
[2020-02-22] MEDS: ENOXAPARIN 40 MG/0.4 ML SYRINGE SUBCUT (08:57)
[2020-02-22] MEDS: PIPERACILLIN-TAZO 3.375 GM/50 ML FROZ.PIGGY IV ×2 (08:57→15:50)
[2020-02-22] MEDS: DORZOLAMIDE/TIMOLOL OPHTH 10 ML 1 DROPS EYE-BOTH ×2 (08:57→20:43)
--- NOTE | 2020-02-22 11:36 | PT.IPTN ---
Current Diagnoses Gastrointestinal hemorrhage, unspecified (02/14/20) Surgery Performed Operation Date: 02/15/20 09:00 Actual Procedures p Colonoscopy with Polypectomy/INKING/BIOPSIES(Not Applicable) - Clinton Ambrocio MD Operation Date: 02/17/20 16:30 Actual Procedures p Cystoscopy w/Placement of bilateral Ureteral Stents - Erika Muller MD Operation Date: 02/19/20 07:45 Actual Procedures p Laparoscopically Assisted Colon Resection Low Anterior converted to Open - Clinton Ambrocio MD Physical Therapy Treatment Note M2 PT-IP Current Condition Start: 02/20/20 14:37 Freq: NEEDED Status: Active Protocol: Document 02/20/20 13:32 AB (Rec: 02/20/20 14:54 AB [id number]) Physical Therapy Current Condition Current Condition Evaluation Date 02/20/20 Treatment Diagnosis GI bleed/pelvic tumor s/p laporoscopy and resection; difficulty in walking Onset Date 02/14/20 Precautions Abdominal Surgery Precautions Log Roll,Lifting Restrictions, Gait Belt above Incisional Area M3 PT-IP Subjective Start: 02/20/20 14:37 Freq: NEEDED Status: Active Protocol: Document 02/22/20 11:00 SP (Rec: 02/22/20 14:22 SP [id number]) Subjective Physical Therapy Visit Type Type Treatment Note Visit Start Time 11:00 Visit Stop Time 11:36 Total Visit Minutes 36 Number of [employer] Visits 2 Physical Therapy Visit Comments Patient Comments Pt agreeable to working with therapy on 2nd attempt again this morning. Therapy Pain Assessment Pain Present Pain Present Denied Pain M4 PT-IP Mobility and Gait Start: 02/20/20 14:37 Freq: NEEDED Status: Active Protocol: Document 02/22/20 11:00 SP (Rec: 02/22/20 14:22 SP [id number]) PT-Bed Mobility Assessment Rolling Type of Rolling Log Rolling,Roll to Left Level of Assist Standby Assistance Supine to Sit Supine to Sit Standby Assistance,Head of Bed Elevated,Bedrails Scooting Scooting to Edge of Bed Standby Assistance PT-Transfer Assessment Sit to and From Stand Sit to and from Stand Standby Assistance,Use of Upper Extremities Equipment Transfer Assistive Device Gait Belt,Front Wheeled Walker Orthotic/Prosthetic Devices or Brace: No Transfers Transfer Destination Chair,Toilet,Wheelchair Transfer Technique ambulated using FWW Transfer Ability Level of Assist Standby Assistance,Use of Upper Extremities Comments Mobility Comments Pt was elevated supine in bed when arrived. Pt declined first attempt but agreeable when returned before lunch. Completed elevated 23 deg log roll to L and supine to sitting using bed rails, and scooted to EOB herself SBA. Pt stated little dizzy once sitting at EOB. Assessed vitals: seated 144/73, HR 85 bpm, 97% on room air. Pt stated dizziness improved after 5 mins sitting at EOB. Sit to stand SBA, cued for pushing up from bed and not pulling from FWW. Pt walked into hallway using FWW, therapist followed with w/c and managed IV pole throught tx, SBA, cued upright posture and body little closer to FWW, noted slow step over step patterning approx 50 ft before tiring and need to sit, decreased activity tolerance, cued for proper hand placement reaching back and slow descent to sit in w/c. Pt reported when asked there is a long way from her car to where can sit at home. [employer] pushed patient down to the stairs in w/c to assess stair mgt. Pt has total 14 stairs at home split level, 3 down to mainn level then 6 or 8 to other levels if needed to basement office or up to garage 1 HR. Pt was able to ascend/descend 3 stairs x2 sets R HR using BUE Min A initially first 2 steps then decreased to CGA, little unsteady. Pt declined further distance gait in hallway, needed to use the bathroom. [employer] pushed patient back in w/c , cued for pushing up from chair to stand then ivan walked to bathroom SBA approx 20 ft and was able to manage bathroom door opening toward her with FWW repositioning safety. Pt pivoted 180deg usign FWW turning and backing up to toilet, slow descent using grab bar. Pt was able to complete self hygiene then walked to the sink sBA using FWW approx 10 ft to wash hands , stable with occasional contact sink for balance. Pt walked to chair approx 5 ft with good pivoting with FWW and reaching back prior to sitting. Pt had chair alarmed, call light and all needs in reach and feet propped up in cushion and warm blankets per request. Gait Assessment Gait Gait Assistance Required: Standby Assistance Distance (Feet) 50 Able to Maintain Weight Bearing Status Yes During Gait Assistive Devices Assistive Device Gait Belt,Front Wheeled Walker Orthotic/Prosthetic Devices or Brace: No Gait Deviations General Gait Pattern Antalgic Factors Limiting Gait Function Factors Limiting Gait Function Decreased Activity Tolerance, Decreased Strength,Pain,Poor Balance,Poor Safety Awareness Comments Gait Comments See mobility comments, stable with FWW durign room distances . Stair Climbing Assessment Evaluation Level of Assist On Stairs Contact Guard Assistance, Minimal Assistance,1 Person Assistance Devices Stair Climbing Assistive Devices Right Railing Technique/Endurance Stair Climbing Direction Ascend and Descend Stair Climbing Technique Step to Step Number of Steps Climbed 3 Stair Climbing Set # Repetitions (reps) 2 Comments Stair Climbing Comments see mobility comments. 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 Gross Range of Motion Lower Extremity ROM Assessment Within Functional Limits Strength Lower Extremity Strength Assessment Within Functional Limits Muscle Tone Muscle Tone WNL Yes M6 PT-IP Treatment Start: 02/20/20 14:37 Freq: NEEDED Status: Active Protocol: Document 02/22/20 11:00 SP (Rec: 02/22/20 14:22 SP [id number]) Physical Therapy Treatment Education Education Provided Precautions,Safety M7 PT-IP Assessment and Plan Start: 02/20/20 14:37 Freq: NEEDED Status: Active Protocol: Document 02/22/20 11:00 SP (Rec: 02/22/20 14:22 SP [id number]) PT Summary Assessment and Plan Potential Rehabilitation Potential Good Status of Condition at Evaluation Evolving Summary Impairments Pain,ROM,Strength,Balance, Cognition,Bed Mobility, Transfers,Gait,Activity Tolerance Assessment Summary pt requiring sBA during bed mobiltiy, SBA with transfers and gait requiring use of FWW and safety cuing, Min decreased to CGA duirng stair mgt x6 steps R HR. pt plans to go home and spouse to assist her. Pt requiring use of FWW at this time for mobility, will request orders for fWW for home, patient stated didn't have access to one. Recommend caregiver training with prior to DC including bedmobility, transfers, gait and stair mgt. Will call to set up possibly tomorrow if medically stable. pt will benefit from homehealth PT. Goals Bed Mobility Goal Independent Transfer Goal Independent,Front Wheeled Walker Gait Goal Independent,Front Wheel Walker Gait Distance 150 Other Goals to improve ambulation without AD/least restrictive AD mod I 200 ft to be able to do stairs 14 steps L rail ascending SBA Days to Meet Goals 10 Frequency of Treatment Frequency Of Treatment Once a Day Treatment Plan Physical Therapy Treatment Plan Bed Mobility Training,Transfer Training,Gait Training, Therapeutic Exercise,Balance Retraining,Post Op Education, Discharge Planning,Hot or Cold Pack,Neuromuscular Re-ed, Coordination Retraining,Manual Therapy Other Recommendations and Next Treatment ambulation, bed mobility, Focus stair mgt, caregiver training prior to DC. Recommendations To Nursing Amount of Assist Needed 1 Person Assist Discharge Recommendations PT Discharge Recommendations Home with Assistance,Home Health Equipment Needed for Home Before FWW if not safe without AD Discharge Transportation Needs at Discharge Private Vehicle
--- NOTE | 2020-02-22 13:18 | CM.DPC ---
DCP/continued: Reviewed chart. Patient last seen by PT on 02-21-20. Current recommendations are home with HH. F2F signed by provider/Dr. Brasher. At this time d/c date unknown. Referral made to [facility] but no order or F2F faxed. P: Anticipate home with HH when medically stable. [facility] will need to be finalized. JOSH Ron
--- NOTE | 2020-02-22 14:18 | PC.NURSE ---
Patient's incision to abdomen is open to air and meri are well approximated. She is working with physical therapy and using walker to ambulated. Tolerating well. It was reported by day shift health information technologist that patient had a small amount of dark blood in her stool. notified and states that with this type of surgery, it is possible to have some bleeding. BT +x4 and patient is passing gas. O nausea and tolerating full liquids well.
--- NOTE | 2020-02-22 14:57 | P.PN_ITS ---
Subjective Subjective Date Patient Seen: 02/22/20 Interval history: Miranda Siddiqui is an 84-year-old female with a past medical history significant for glaucoma who presented to the ED for hematochezia andwas found to have a sigmoid mass on colonoscopy with mesenteric nodules and possible pulmonary nodules. She incidentally was found to have an obstructing left renal calculus and a non-obst ructing right staghorn calculus. The patient is resting in a bed and appears comfortable. She continues to have aching abdominal pain mostly with movement that is controlled with pain medication. The patient has had several BMs overnight and today. Plan to advance diet as tolerated per general surgery. She has no complaints and denies headache, chest pain, shortness of breath, nausea, vomiting, fever or chills. Plan to remove Carvajal catheter as she is no longer having hematuria after bilate ral ureteral stent placement and per Urology. She is up with assistance in physical and occupational therapy. Continue to ambulate at least 3 times a day. Exam Vital Signs (past 8 hours): - 02/22/20 08:00 02/22/20 11:00 Temperature 98.1 F 97.5 F L Pulse Rate 81 84 Respiratory Rate 16 16 Blood Pressure 157/78 H 144/73 H Pulse Oximetry 95 99 Oxygen Delivery Method Room Air Oxygen Flow Rate 0 Narrative Exam Narrative: General: Elderly thin female lying in bed and in no acute distress, appears older than stated age and chronically ill, well-developed, appropriately interactive. HEENT: Normocephalic, atraumatic. External ears without defect. Pupils equal, round, and reactive to light. Anicteric sclerae, moist conjunctivae, and no lid lag. Oropharynx free of erythema and cobble stoning with moist mucosa. Neck: Supple with full range of motion. No lymphadenopathy or thyromegaly. Cardiovascular: Regular rate and rhythm without murmurs, rubs, or gallops appreciated Pulmonary: Clear to auscultation bilaterally without crackles, wheezes, or rhonchi. Normal respiratory effort with no use of accessory muscles. Abdomen: Soft, bowel sounds present, mild tenderness to palpation especially over surgical site, nondistended, dressing has been removed and vertical staple line with meri in place. Surgical site appears to be healing well without surrounding erythema or edema. Extremities: No clubbing, cyanosis, or edema. Skin: Normal temperature, turgor, and texture; no rash, ulcers, or subcutaneous nodules appreciated. Neurological: Cranial nerves grossly intact. Psychiatric: Normal mood and affect. Alert and oriented to person, place, and time. Objective Labs Result Diagrams: 02/22/20 05:03 02/22/20 05:03 Labs: Laboratory Results - last 24 hr 02/22/20 02/22/20 05:03 05:03 WBC 8.5 RBC 2.97 L Hgb 9.2 L Hct 27.0 L MCV 90.8 MCH 31.0 MCHC 34.1 RDW 13.3 Plt Count 303 Neut % (Auto) 73.9 Lymph % (Auto) 9.5 L [place] % (Auto) 7.6 Eos % (Auto) 8.3 H Baso % (Auto) 0.7 Neut # (Auto) 6200 Lymph # (Auto) 800 L [place] # (Auto) 600 Eos # (Auto) 700 H Baso # (Auto) 100 Sodium 139 Potassium 4.0 Chloride 110 H Carbon Dioxide 23 BUN 14 Creatinine 0.92 Estimated GFR 58.2 L BUN/Creatinine Ratio 15.2 Glucose 85 Calcium 8.8 Magnesium 2.0 Assessment & Plan Assessment & Plan narrative: Miranda Siddiqui is an 84-year-old female with a past medical history significant for glaucoma who presented to the ED for hematochezia andwas found to have a sigmoid mass on colonoscopy with mesenteric nodules and possible pulmonary nodules. She incidentally was found to have an obstructing left renal calculus and a non-obstructing right staghorn calculus. 1. Acute episode of hematochezia, secondary to sigmoid adenocarcinoma, status post sigmoid resection, present on admission. Active. -Patient presented after episode of hematochezia. Patient has never had a screening colonoscopy. -CT chest, abdomen, and pelvis with contrast demonstrated a sigmoid mass that was previously seen on colonoscopy, some mesenteric soft tissue nodules but no adenopathy. She further had bilateral pulmonary nodular clusters and it is unclear if this represents metastatic disease. -CEA 0.8. -Consulted general surgery, Dr. Ambrocio, who performed colonoscopy on 02/15/20 found to have a large nearly obstructive sigmoid mass and multiple other polyps. 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 Patient is now status post sigmoid resection which was a contaminated procedure due to stapler malfunction and general surgery has started Zosyn 3.375 g every 8 hours. Continue postoperative, DVT prophylaxis and pain management per General surgery. Continue to advance diet as tolerated per surgery. Continue to ambulate at least 3 times daily with physical and occupational therapy. -Recommend outpatient referral to oncology for further treatment of possibly metastatic colon cancer per PCP. 2. Acute blood loss anemia, not present on admission. Improving. -Initial hemoglobin 13.3. Hemoglobin trended down due to acute blood loss, as well as, hemodilution. Hemoglobin is stable. Continue to monitor for overt signs of bleeding. Transfusion goal hemoglobin < 7.0. -Continue to monitor H&H daily. 3. Incidental bilateral renal nephrolithiasis with high-grade left-sided obstructive uropathy, hydronephrosis and probable UTI, status post bilateral ureteral stent placement, present on admission. Resolved. -Patient incidentally found to obstructing left renal calculus, bilateral renal cysts, and a non-obstructing right staghorn calculus which was on staging CT abdomen and pelvis with contrast. -Urinalysis appeared grossly infected and patient was started on ceftriaxone 1 g IV daily. Urine culture has had no growth. Continued ceftriaxone 1 g daily x 4 doses and received ciprofloxacin pre-operatively. Discontinued antibiotic for treatment of UTI as patient received adequate treatment. -Consulted urology, Dr. Lozoya, who performed cystoscopy and placement of bilateral ureteral stents. We appreciate his time and care of the patient. Patient will need staged procedures and will follow-up with Dr. Lozoya as instructed. 4. Probable CALDERON on chronic kidney disease, present on admission. CALDERON resolved. -Initial creatinine 1.37. Previous baseline creatinine 1.2 in 2019. However, given right-sided not obstructing staghorn calculi, high-grade left side obstructive uropathy with hydronephrosis and probable UTI more likely that patient has an acute kidney injury on mild CKD. Creatinine improved now 0.92. -Continued IV fluids until adequately hydrated then discontinued. -Avoid nephrotoxic agents. -Continue to monitor renal function daily. 5. Acute hypokalemia, not present on admission. Active. -Potassium level 3.2. Received potassium chloride 40 mEq IV x1. -Continue to monitor potassium level daily. Code Status: Full code. Surrogate decision maker is the patient's , Alex Siddiqui. VTE prophylaxis: Enoxaparin, SCDs Disposition: Patient will likely discharge home with home health in 1-2 days once sigmoid resection, ambulating safely, and consuming normal diet. Quality VTE Deep Vein Thrombosis/Pulmonary Embolism Present on Admission: No
--- NOTE | 2020-02-22 15:54 | OT.IP.TRT ---
Current Diagnoses Gastrointestinal hemorrhage, unspecified (02/14/20) Surgery Performed Operation Date: 02/15/20 09:00 Actual Procedures p Colonoscopy with Polypectomy/INKING/BIOPSIES(Not Applicable) - Clinton Ambrocio MD Operation Date: 02/17/20 16:30 Actual Procedures p Cystoscopy w/Placement of bilateral Ureteral Stents - Erika Muller MD Operation Date: 02/19/20 07:45 Actual Procedures p Laparoscopically Assisted Colon Resection Low Anterior converted to Open - Clinton Ambrocio MD Occupational Therapy Treatment Note M2 OT-IP Current Condition Start: 02/20/20 14:27 Freq: Status: Active Protocol: Document 02/20/20 14:28 CGR (Rec: 02/20/20 14:59 CGR [id number]) Occupational Therapy Current Condition Current Condition Evaluation Date 02/20/20 Treatment Diagnosis GI bleed Diagnosis Onset Date 02/14/20 Post Operative Precautions Abdominal Surgery Precautions Log Roll,Lifting Restrictions, Gait Belt above Incisional Area M3 OT- IP Subjective and Pain Start: 02/20/20 14:27 Freq: Status: Active Protocol: Document 02/22/20 15:54 CGR (Rec: 02/22/20 15:54 CGR [id number]) OT- Subjective Occupational Therapy Visit Type Type Administrative Note Notes Attempted to see for OT services x2 this afternoon. Pt fatigued and requesting to rest at this time. Will hold and continue to follow.
[2020-02-22] MEDS: OXYCODONE IR 5 MG TABLET PO ×2 (15:57→20:47)
[2020-02-22] MEDS: LATANOPROST 0.005% OPHTH 2.5 ML 1 DROPS EYE-BOTH (20:43)
[2020-02-22] MEDS: ACETAMINOPHEN 325 MG TABLET 650 MG PO (20:49)
[2020-02-23] MEDS: PIPERACILLIN-TAZO 3.375 GM/50 ML FROZ.PIGGY IV ×2 (00:05→08:57)
[2020-02-23 00:10] VITALS: O2SAT 96
[2020-02-23 00:15] VITALS: BP 124/64; PULSE 67; RESP 16; TEMP 36.3; O2SAT 96
[2020-02-23 04:00] VITALS: O2SAT 96
[2020-02-23 05:45] LABS: Add Manual Diff / Slide Review NO; Basophils Absolute Auto 0 /uL (0-100); Basophils Percent Auto 0.2 % (0-2); Eosinophils Absolute Auto 600 /uL (0-450); Eosinophils Percent Auto 8.3 % (2-4); Hematocrit 26.1 % (36-46); Hemoglobin 8.8 g/dL (12.0-16.0); Lymphocytes Absolute Auto 800 /uL (1100-4500); Lymphocytes Percent Auto 11.1 % (25-40); Mean Corpuscular HGB Conc 33.7 % (30-36); Mean Corpuscular Hemoglobin 30.6 PG (26-34); Mean Corpuscular Volume 90.8 fL (80-100); Monocytes Absolute Auto 600 /uL (0-900); Monocytes Percent Auto 8.7 % (3-14); Neutrophils Absolute Auto 5300 /uL (1500-7000); Neutrophils Percent Auto 71.7 % (50-75); Platelet Count 312 X10^3/uL (150-400); Red Blood Cell Count 2.88 X10^6/uL (4.0-5.2); Red Cell Distribution Width 13.2 % (11.6-14.8); White Blood Cell Count 7.4 X10^3/uL (4.5-11.0)
[2020-02-23 05:46] LABS: BUN Creatinine Ratio 12.1 (6-22); Blood Urea Nitrogen 13 mg/dL (7-17); Carbon Dioxide 24 mmol/L (22-32); Chloride 109 mmol/L (98-107); Estimated Glomerular Filt Rate 48.9 mL/min (>60); Glucose 89 mg/dL (80-110); HEMOLYSIS < 15 (0-50); Magnesium 1.8 mg/dL (1.6-2.3); Potassium 3.8 mmol/L (3.4-5.1); Sodium 139 mmol/L (137-145)
[2020-02-23] MEDS: ACETAMINOPHEN 325 MG TABLET 650 MG PO ×2 (06:10→12:06)
[2020-02-23] MEDS: KCL 40 MEQ IN NS 1,000 ML 50 MEQ IV (06:12)
[2020-02-23 08:00] VITALS: BP 150/71; PULSE 81; RESP 18; TEMP 36.4; O2SAT 96
[2020-02-23] MEDS: DORZOLAMIDE/TIMOLOL OPHTH 10 ML 1 DROPS EYE-BOTH (08:53)
--- NOTE | 2020-02-23 08:56 | PM.PNPO.1 ---
Subjective Subjective Date Patient Seen: 02/23/20 Time Patient Seen: 08:56 Interval history: No acute overnight events. Has flatus and bowel movements. Reportedly 1 of the blood bowel movements was bloody but nothing since. Tolerating a regular diet Exam Vital Signs (past 8 hours): - 02/23/20 04:00 02/23/20 08:00 Temperature 97.5 F L Pulse Rate 81 Respiratory Rate 18 Blood Pressure 150/71 H Pulse Oximetry 96 96 Oxygen Delivery Method Room Air Oxygen Flow Rate 0 Narrative Exam Narrative: General of adult female alert no acute distress Abdomen soft appropriately tender to palpation incision clean dry intact Objective Labs Result Diagrams: 02/23/20 05:04 02/23/20 05:04 Labs: Laboratory Results - last 24 hr 02/22/20 02/23/20 02/23/20 05:03 05:04 05:04 WBC 7.4 RBC 2.88 L Hgb 8.8 L Hct 26.1 L MCV 90.8 MCH 30.6 MCHC 33.7 RDW 13.2 Plt Count 312 Neut % (Auto) 71.7 Lymph % (Auto) 11.1 L [place] % (Auto) 8.7 Eos % (Auto) 8.3 H Baso % (Auto) 0.2 Neut # (Auto) 5300 Lymph # (Auto) 800 L [place] # (Auto) 600 Eos # (Auto) 600 H Baso # (Auto) 0 Sodium 139 Potassium 3.8 Chloride 109 H Carbon Dioxide 24 BUN 13 Creatinine 1.07 H Estimated GFR 48.9 L BUN/Creatinine Ratio 12.1 Glucose 89 Calcium 9.0 Magnesium 1.8 Procalcitonin 0.30 Assessment & Plan Post-op Postoperative Procedures: Procedures Operation Date: 02/15/20 09:00 Actual Procedures Side Surgeon p Colonoscopy with Polypectomy/INKING/BIOPSIES Not Applicable Clinton Ambrocio MD Operation Date: 02/17/20 16:30 Actual Procedures Side Surgeon p Cystoscopy w/Placement of bilateral Ureteral Stents Erika Muller MD Operation Date: 02/19/20 07:45 Actual Procedures Side Surgeon p Laparoscopically Assisted Colon Resection Low Anterior converted to Open Clinton Ambrocio MD Postoperative plan narrative: 84-year-old female postoperative day 4 status post laparoscopic-assisted LAR colon cancer doing well. Has return of bowel function and is progressing. -regular diet -out of bed to chair ambulate physical therapy consult -Zosyn x 5 days for intraoperative spillage -SCDs and Lovenox for VTE prophylaxis Quality VTE Deep Vein Thrombosis/Pulmonary Embolism Present on Admission: No
[2020-02-23] MEDS: ENOXAPARIN 40 MG/0.4 ML SYRINGE SUBCUT (08:57)
--- NOTE | 2020-02-23 10:22 | CM.DANOTE ---
Addendum entered by Marisol Womack 02/23/20 12:18: Order obtained for Home health for PT/OT/RN. Met with patient and spouse both aware and agreeable to plan. F2F completed. Agency providing HH will be [facility] because they cover [facility]. Asked MET[employer] SALES REPRESENTATIVE/Mary Ann to coordinated HH health arrangements with [facility] and brochure provided to patient. P: Home today. JOSH Ron Original Note: DCP continued: Reviewed chart. Spoke with Dr. Robertson and he reports patient medically stable for discharge today. Spoke with therapy and they report that they have spoken with family and that they will be here today for caregiver training. D/C home anticipated after training completed. P: Home today. JOSH Ron
--- NOTE | 2020-02-23 10:43 | OT.IP.TRT ---
Current Diagnoses Gastrointestinal hemorrhage, unspecified (02/14/20) Surgery Performed Operation Date: 02/15/20 09:00 Actual Procedures p Colonoscopy with Polypectomy/INKING/BIOPSIES(Not Applicable) - Clinton Ambrocio MD Operation Date: 02/17/20 16:30 Actual Procedures p Cystoscopy w/Placement of bilateral Ureteral Stents - Erika Muller MD Operation Date: 02/19/20 07:45 Actual Procedures p Laparoscopically Assisted Colon Resection Low Anterior converted to Open - Clinton Ambrocio MD Occupational Therapy Treatment Note M2 OT-IP Current Condition Start: 02/20/20 14:27 Freq: Status: Active Protocol: Document 02/20/20 14:28 CGR (Rec: 02/20/20 14:59 CGR [id number]) Occupational Therapy Current Condition Current Condition Evaluation Date 02/20/20 Treatment Diagnosis GI bleed Diagnosis Onset Date 02/14/20 Post Operative Precautions Abdominal Surgery Precautions Log Roll,Lifting Restrictions, Gait Belt above Incisional Area M3 OT- IP Subjective and Pain Start: 02/20/20 14:27 Freq: Status: Active Protocol: Document 02/23/20 10:34 [facility] (Rec: 02/23/20 10:43 [facility] [id number]) OT- Subjective Occupational Therapy Visit Type Type Treatment Note Visit Start Time 10:05 Visit Stop Time 10:30 Total Visit Minutes 25 Occupational Therapy Visit Comments Patient Comments Pt looking to go home today with her . OT Pain Assessment Pain When Pain Assessed At Rest Pain Present Pain Present Denied Pain M4 OT- IP ADL's Start: 02/20/20 14:27 Freq: Status: Active Protocol: Document 02/23/20 10:34 [facility] (Rec: 02/23/20 10:43 [facility] [id number]) OT [id number] Comments OT Self-Feeding Comments Not performed OT ADL-Grooming General Evaluation Grooming Ability Standby Assistance Areas Needing Assistance Retrieving/Set-up of Grooming Items,Combing/Brushing Hair, Face Washing Comments OT Grooming Comments WHile seated as too tired as just finished using the bathroom. OT ADL-Dressing General Eval Lower Body Dressing Ability Minimal Assistance Areas Needing Assistance Shoes Comments OT Dressing Comments MOISÉS to help slide her feet into her slide on shoes OT ADL-Toileting General Evaluation Toileting Ability Standby Assistance Devices Toileting Assistive Devices Grab Bars Comments OT Toileting Comments SBA for safety. OT ADL-Bathing Comments OT Bathing Comments Pt refusing at this time. M5 OT- IP IADL's Start: 02/20/20 14:27 Freq: Status: Active Protocol: Document 02/20/20 14:28 CGR (Rec: 02/20/20 14:59 CGR [id number]) OT-Instrumental Activities of Daily Living Deficits IADL Deficits Identified No Deficits Home Safety Awareness Awareness of Need for Assistance at Home Good Awareness Ability to Problem Solve Emergency Able to Problem Solve Situations Medication Management Medication Management No Deficits Identified Money Management Money Management No Deficits Identified Meal Preparation Meal Preparation No Deficits Identified Beaming Machine Operator Beaming Machine Operator No Deficits Identified Driving Driving Comments 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 M6 OT- IP Functional Cognition Start: 02/20/20 14:27 Freq: Status: Active Protocol: Document 02/23/20 10:34 [facility] (Rec: 02/23/20 10:43 [facility] [id number]) Cognitive Factors Limiting Selfcare Function Cognitive Comments Cognitive Assessment Comments Increased time to respond to questions and to initiate tasks. M7 OT- IP Mobility and Balance Start: 02/20/20 14:27 Freq: Status: Active Protocol: Document 02/23/20 10:34 [facility] (Rec: 02/23/20 10:43 [facility] [id number]) OT- Bed Mobility Assessment Rolling Type of Rolling Log Rolling,Roll to Right Supine to Sit Supine to Sit Assist Standby Assistance Scooting Scooting to Edge of Bed Standby Assistance OT-Transfer Assessment Sit to and From Stand Sit to and from Stand Standby Assistance,Contact Guard Assistance Transfers Transfer Ability Standby Assistance Technique Transfer Destination Bed,Chair,Toilet Transfer Technique Stand Step Pivot Devices Transfer Assistive Devices Gait Belt,Front Wheeled Walker Comments Mobility Comments Close SBA /CGA with FWW in the room. Cues to keep the FWW closer to her. OT- Balance Assessment Sitting Balance and Reactions Static Sitting Balance Ability Normal Dynamic Sitting Balance Ability Good Standing Balance and Reactions Static Standing Balance Ability Fair M8 OT- IP Objective Assessments Start: 02/20/20 14:27 Freq: Status: Active Protocol: Document 02/20/20 14:28 CGR (Rec: 02/20/20 14:59 CGR [id number]) OT Gross Range of Motion Upper Extremity Range of Motion Assessment Within Functional Limits OT Strength Upper Extremity Strength Assessment Within Functional Limits OT- Coordination Assessment Upper Extremity Finger to Nose Test Within Functional Limits Finger Tapping Test Within Functional Limits Comments Coordination Comments Noted delayed correction of coordination with hand to mouth bringing cup to mouth. OT-Muscle Tone Assessment Muscle Tone WNL Yes OT Sensation Assessment Edema Edema Absent M9 OT- IP Assessment and Plan Start: 02/20/20 14:27 Freq: Status: Active Protocol: Document 02/23/20 10:34 [facility] (Rec: 02/23/20 10:43 [facility] [id number]) OT Summary Assessment and Plan Potential Rehabilitation Potential Excellent Analytic Complexity at Evaluation Low Summary OT Impairments Pain,Balance,Coordination, Functional Cognition, Functional Mobility,Grooming, Dressing,Toileting,Bathing, Toilet Transfers,Shower Transfers,Activity Tolerance Progress Towards Goals Progressing Toward Goals Assessment Summary Pt able to dress herself with minimal assist for shoes and increased time for all other needs. Pt CGA to close SBA with FWW , pt quickly fatigued and therefore at times would benefit from CGA. Pt looking to go home with her today and to have home health. Treatment Plan OT Treatment Plan ADL Training,Functional Cognition Training,Functional Mobility,Patient/Family Education,Discharge Planning Discharge Recommendations OT Discharge Recommendations Home with Assistance,Home Health Home Equipment Needs shower chair, FWW Transportation Needs at Discharge Private Vehicle
--- NOTE | 2020-02-23 11:11 | OT.IPNOTE ---
Able to talk to pt's regarding OT needs and to provide assist as needed initially for pt all the time. Pt's in the process of getting a shower chair for home.
--- NOTE | 2020-02-23 11:44 | PT.IPTN ---
Current Diagnoses Gastrointestinal hemorrhage, unspecified (02/14/20) Surgery Performed Operation Date: 02/15/20 09:00 Actual Procedures p Colonoscopy with Polypectomy/INKING/BIOPSIES(Not Applicable) - Clinton Ambrocio MD Operation Date: 02/17/20 16:30 Actual Procedures p Cystoscopy w/Placement of bilateral Ureteral Stents - Erika Muller MD Operation Date: 02/19/20 07:45 Actual Procedures p Laparoscopically Assisted Colon Resection Low Anterior converted to Open - Clinton Ambrocio MD Physical Therapy Treatment Note M2 PT-IP Current Condition Start: 02/20/20 14:37 Freq: NEEDED Status: Active Protocol: Document 02/20/20 13:32 AB (Rec: 02/20/20 14:54 AB [id number]) Physical Therapy Current Condition Current Condition Evaluation Date 02/20/20 Treatment Diagnosis 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 Number of CHEESE GRADER Visits 3 Physical Therapy Visit Comments Patient Comments Pt agreeable to working with therapy and for caregiver training. Patient Goals Return home with her . Therapy Pain Assessment Pain Present Pain Present Denied Pain M4 PT-IP Mobility and Gait Start: 02/20/20 14:37 Freq: NEEDED Status: Active Protocol: Document 02/23/20 11:11 SP (Rec: 02/23/20 13:29 SP [id number]) PT-Bed Mobility Assessment Rolling Type of Rolling Bilateral Level of Assist Standby Assistance Supine to Sit Supine to Sit Contact Guard Assistance, Minimal Assistance,Bedrails Sit to Supine Sit to Supine Contact Guard Assistance, Bedrails Scooting Scooting to Edge of Bed Standby Assistance PT-Transfer Assessment Sit to and From Stand Sit to and from Stand Standby Assistance,Contact Guard Assistance,Use of Upper Extremities Equipment Transfer Assistive Device Gait Belt,Front Wheeled Walker Orthotic/Prosthetic Devices or Brace: No Transfers Transfer Destination Bed,Chair,Wheelchair Transfer Technique ambulated using FWW Transfer Ability Level of Assist Standby Assistance,Contact Guard Assistance,Use of Upper Extremities Comments Mobility Comments Pt was seated in chair with was present for and completed caregiver training providing assist donning gait belt post education, assist during transfers, bed mobility , gait, stair mgt. Pt required CGA sit to stand from chair cuing for hand placement and step pivot transfer chair to bed with little retro lean but self recovery using FWW, cued reach back prior to sitting. Sit to supine SBA with cuing for abdominal bracinglog roll HOB flat used bed rails for self support, Log roll to R SBA to log roll using bed rails, supine to sitting HOB flat min A for trunk righting to sitting while self BUE WB on bed and rail to stabilize trunk positioning. stated will be using different bed at home with no elevating ability so patient required little assist needed for HOB flat. CGA- SBA during sit to stand from EOB using FWW was walked into hallway approx 80ft with w/c follow secondary to decreased activity tolerance cued reach back for slow seated descent in to w/c. Therapist pushed patient down to the stairs, CGA during ascend/descend 6 stair mgt R HR with cuing for safety hand positioning cuing BUE on R HR and pivoting to come back down , was providing safety cuing throught to patient by end of tx. Pt walked approx 60 ft after stair mgt before required seated rest in to w/c for recovery. Pt continues to have decreased activity tolerance and would benefit from home health PT to improve strength and functional mobility. [employer]AD[employer] dispensed FWW at this time for home use. Pt is safet to go home with when medically stable. Gait Assessment Gait Gait Assistance Required: Standby Assistance,Contact Guard Assist Distance (Feet) 80 Able to Maintain Weight Bearing Status Yes During Gait Assistive Devices Assistive Device Gait Belt,Front Wheeled Walker Orthotic/Prosthetic Devices or Brace: No Gait Deviations General Gait Pattern Antalgic,Flexed Trunk Factors Limiting Gait Function Factors Limiting Gait Function Decreased Activity Tolerance, Decreased Strength,Poor Balance,Poor Safety Awareness Comments Gait Comments See mobility comments. Stair Climbing Assessment Evaluation Level of Assist On Stairs Contact Guard Assistance,1 Person Assistance Devices Stair Climbing Assistive Devices Right Railing Technique/Endurance Stair Climbing Direction Ascend and Descend Stair Climbing Technique Step to Step Number of Steps Climbed 3 Stair Climbing Set # Repetitions (reps) 2 Comments Stair Climbing Comments See mobility comments. stated only needs to complete 6 stairs to get to main level she will stay on at this time , completed. 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 Gross Range of Motion Lower Extremity ROM Assessment Within Functional Limits Strength Lower Extremity Strength Assessment Within Functional Limits Muscle Tone Muscle Tone WNL Yes M6 PT-IP Treatment Start: 02/20/20 14:37 Freq: NEEDED Status: Active Protocol: Document 02/23/20 11:11 SP (Rec: 02/23/20 13:29 SP [id number]) Physical Therapy Treatment Education Education Provided Precautions,Safety M7 PT-IP Assessment and Plan Start: 02/20/20 14:37 Freq: NEEDED Status: Active Protocol: Document 02/23/20 11:11 SP (Rec: 02/23/20 13:29 SP [id number]) PT Summary Assessment and Plan Potential Rehabilitation Potential Good Status of Condition at Evaluation Evolving Summary Impairments Pain,ROM,Strength,Balance, Cognition,Bed Mobility, Transfers,Gait,Activity Tolerance Assessment Summary pt requiring SBA- Min during bed mobiltiy, CGA with transfers and gait requiring use of FWW and safety cuing, CGA duirng stair mgt x6 steps R HR. Assistance provided by throught treatment with CHEESE GRADER giving both safety cues for hand placement and proper use of gait belt hand positioning. Pt is ok to go home and spouse to assist her when medically stable. CHEESE GRADER recommending continue use of FWW at this time, dispensed today and home PT to improve strength for functional mobility. Goals Bed Mobility Goal Independent Transfer Goal Independent,Front Wheeled Walker Gait Goal Independent,Front Wheel Walker Gait Distance 150 Other Goals to improve ambulation without AD/least restrictive AD mod I 200 ft to be able to do stairs 14 steps L rail ascending SBA Days to Meet Goals 10 Frequency of Treatment Frequency Of Treatment Once a Day Treatment Plan Physical Therapy Treatment Plan Bed Mobility Training,Transfer Training,Gait Training, Therapeutic Exercise,Balance Retraining,Post Op Education, Discharge Planning,Hot or Cold Pack,Neuromuscular Re-ed, Coordination Retraining,Manual Therapy Other Recommendations and Next Treatment ambulation, bed mobility, Focus stair mgt, caregiver training prior to DC. Recommendations To Nursing Amount of Assist Needed Standby Assistance Discharge Recommendations PT Discharge Recommendations Home with Assistance,Home Health Equipment Needed for Home Before FWW dispensed today. Discharge Transportation Needs at Discharge Private Vehicle
--- NOTE | 2020-02-23 13:20 | PC.NURSE ---
Discharge home: IV dc'd intact. Patient was evaluated by PT/OT, caregiver training with completed, patient cleared to discharge home (vs. SNF). See note for HH info. This editorial writer spoke with Dr Winston and let him know that Dr Robertson had put in discharge orders. Per Dr Winston no change to Dr Robertson's orders, no need for abx script at discharge. She is to have meri removed in about 10 days (either by PCP or at Dr Ambrocio's office), and then follow up with Dr Ambrocio about a week later. Patient (and family) made aware that they need to schedule their follow up appts with Dr Ambrocio, Dr Lozoya and Oncology- all necessary phone numbers provided. Encouraged to advance slowly and as tolerated. Reviewed s/sx with which to call MD, and emphasized that they call [id number] for after-hours questions. Advised that it's ok to shower, no baths or submerging belly until ok'd by MD. Given script for Oxycodone. Patient and family verbalized understanding of instructions and stated no further questions. Wheeled out to private vehicle by nursing staff.
--- NOTE | 2020-02-23 18:24 | P.DS_ITS ---
History of Present Illness History of Present Illness Chief complaint: blood in her stool Narrative: Miranda Siddiqui is an 84-year-old female who woke up this morning and had a normal bowel movement. Then at 10:30 a.m. after having breakfast she had another bowel movement that she states was soft and noticed she had blood in her stool. She has never had a history of hemorrhoids. Nor has she had a colonoscopy. She has had some mild cramping, denies shortness of breath, fatigue, chest pain, abdominal pain, dysuria, diarrhea constipation. The patient has a minimal medical history only taking aspirin 81 mg and e yedrops. Discharge Providers Provider Date of admission: 02/14/20 12:45 Discharge Date: 02/23/20 Primary care physician: Augustina Heck MD Consults: 02/13/20 21:33 Consult to General Surgery Routine Comment: Consulting Provider: Marylu Bustamante Reason for consultation: Lower GI bleed Has provider been notified: Yes 02/17/20 18:30 Consult to Discharge Planning Routine Comment: 02/19/20 15:10 Consult to Discharge Planning Routine Comment: 02/20/20 09:33 Consult to Physical Therapy Evaluate & Treat Comment: pt post op. Assist with mobilization/ambulation Physician Instructions: Evaluate and Treat 02/20/20 10:15 Consult to Occupational Therapy Evaluate & Treat Comment: Physician Instructions: Evaluate and treat Consult to Physical Therapy Evaluate & Treat Comment: Physician Instructions: Evaluate and Treat 02/22/20 10:33 Consult to Discharge Planning Routine Comment: FWW at dc per PT recommendation 02/23/20 08:42 Consult to Occupational Therapy Evaluate & Treat Comment: Physician Instructions: Evaluate and treat Consult to Physical Therapy Evaluate & Treat Comment: Physician Instructions: Evaluate and Treat 02/23/20 12:10 Consult to Home Health Routine Comment: D/C 02-23-2020 Reason For Exam: Home Health for PT/OT/kraft digester operator provider: Jerzy Robertson MD Summary Hospital Course Discharge Diagnosis: 1. 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 Invasive adenocarcinoma of sigmoid colon 3. Bilateral pulmonary nodules, undetermined if secondary to malignancy 4. Left renal obstructing calculus 5. Nonobstructing right renal staghorn calculus 7. Acute kidney injury, resolved 8. Acute hypokalemia, resolved 9. UTI, probably chronic secondary to kidney stone disease Procedures: 1. Diagnostic colonoscopy 02/15/2020 2. Laparoscopic converted open low anterior resection 02/19/20 3. Cystoscopy and bilateral ureteral stent placement 02/17/2020 Hospital Course: Patient admitted due to episode of hematochezia but did not require transfusion. Colonoscopy and CT demonstrated sigmoid mass suspicious for malignancy. Patient had open low anterior resection of sigmoid colon by Dr. Ambrocio. Biopsy showed locally advanced invasive adenocarcinoma, moderately differentiated, with mucinous features. Patient noted to have bilateral lung nodules on CT of undetermined significance, may be old/inflammatory versus metastatic. Patient was found to have incidental bilateral renal nephrolithiasis with high- grade left-sided obstructive uropathy an a right renal staghorn calculus which w as nonobstructing. Dr. Muller was consulted for Urology and performed cystoscopy with placement of bilateral ureteral stents. Patient was treated with antibiotics for likely chronic UTI with urine culture positive for Enterococcus. Patient is tolerating diet and has been stable postop. She will follow-up with her PCP on [facility] Dr. Heck. She will schedule oncology appointment for new patient visit. She will also schedule clinic appointment with Dr Muller for urology follow-up. Status at Discharge Cognitive/behavioral status at discharge: oriented Functional status at discharge: independent ambulation Overall status at discharge: patient is back to baseline Time Spent with Patient Time spent: Greater than 30 minutes Exam Vital Signs (past 8 hours): Oxygen Delivery Method Room Air Oxygen Flow Rate 0 Objective Labs Result Diagrams: 02/23/20 05:04 02/23/20 05:04 Labs: Laboratory Results - last 24 hr 02/23/20 02/23/20 05:04 05:04 WBC 7.4 RBC 2.88 L Hgb 8.8 L Hct 26.1 L MCV 90.8 MCH 30.6 MCHC 33.7 RDW 13.2 Plt Count 312 Neut % (Auto) 71.7 Lymph % (Auto) 11.1 L [place] % (Auto) 8.7 Eos % (Auto) 8.3 H Baso % (Auto) 0.2 Neut # (Auto) 5300 Lymph # (Auto) 800 L [place] # (Auto) 600 Eos # (Auto) 600 H Baso # (Auto) 0 Sodium 139 Potassium 3.8 Chloride 109 H Carbon Dioxide 24 BUN 13 Creatinine 1.07 H Estimated GFR 48.9 L BUN/Creatinine Ratio 12.1 Glucose 89 Calcium 9.0 Magnesium 1.8 Discharge Plan Discharge Plan Patient Disposition: Home Discharge comment: Schedule appointment at oncology clinic. Schedule urology follow up of ureteral stents with Dr Muller. Have abdominal meri removed in about 10 days. Discharge orders & Medications Prescriptions: New oxycodone 5 mg tablet 5 mg PO Q6H PRN (Reason: pain) Qty: 14 RF: 0 Continued aspirin [Aspir-81] 81 mg Tablet,Delayed Release (Dr/Ec) 81 mg PO DAILY RF: 0 dorzolamide-timolol 22.3-6.8 mg/mL Drops 1 drp EYE-BOTH BID RF: 0 latanoprost 0.005 % drops 1 drp EYE-BOTH BID RF: 0 Follow up/Referrals: Augustina Heck MD [Primary Care Provider] - Erika Muller MD [Physician] - 2 Weeks Discharge Health Status Multidrug resistant organism: No MDRO Diet/Activity/Treatments Diet: Diet as Tolerated Skin/Wound/Dressing Care Report to your healthcare provider any signs of infection, such as:: chills, fever, night sweats, increased pain, unusual drainage and unusual redness Visit Report/Discharge Packet Instructions: DI for Cystoscopy, DI for Colectomy, DI for Laparoscopy, DI for Prescription Opioid Use, [facility]: Wound Care Discharge Data Primary Care Provider: Augustina Heck Discharges patient from system. Discharge Date/Time: 02/23/20 13:43 Quality VTE Deep Vein Thrombosis/Pulmonary Embolism Present on Admission: No
== END 2020-02-23 13:43 | disposition home health service (06) | DRG 330 ==
LOC: ED 19:31 → AC 20:13
PROVIDERS: Internal Medicine; Specialist; Surgery; Admitting Provider Nurse Practitioner Family; Emergency Provider Emergency Medicine; PCP Family Medicine; Referring Provider Emergency Medicine; Visit Provider Nurse Practitioner Family
PROC: 0DJD8ZZ Inspection of Lower Intestinal Tract, Via Natural or Artificial Opening Endoscopic (ICD-10-PCS; CPT 45378; principal; 2020-02-15 09:00)
PROC: 0T788DZ Dilation of Bilateral Ureters with Intraluminal Device, Via Natural or Artificial Opening Endoscopic (ICD-10-PCS; principal; 2020-02-17 16:30)
PROC: 0DTE0ZZ Resection of Large Intestine, Open Approach (ICD-10-PCS; principal; 2020-02-19 07:45)
DX: C18.7 Malignant neoplasm of sigmoid colon (principal); K92.1 Melena; N13.6 Pyonephrosis; N17.9 Acute kidney failure, unspecified; D62 Acute posthemorrhagic anemia; N20.2 Calculus of kidney with calculus of ureter; R91.8 Other nonspecific abnormal finding of lung field; K63.5 Polyp of colon; E87.6 Hypokalemia; Z87.891 Personal history of nicotine dependence; Z11.59 Encounter for screening for other viral diseases; Z53.31 Laparoscopic surgical procedure converted to open procedure; S93.401A Sprain of unspecified ligament of right ankle, initial encounter; X58.XXXA Exposure to other specified factors, initial encounter
CPT/HCPCS: 36415; 44145; 45380; 71260; 74018; 74177; 76000; 80048; 80053; 80076; 81001; 82378; 82962; 83605; 83735; 84145; 85014; 85018; 85025; 85610; 85730; 86850; 86900; 86901; 87077; 87086; 87185; 87186; 87338; 87635; 96374; 97116; 97162; 97165; 97530; 97535; 99152; 99284; G0378; A9270; C9113; J0131; J0744; J1100; J1170; J1650; J2250; J2270; J2405; J2543; J2704; J3010; J3480; Q9967